=== PATIENT | female | born 1995 | race Caucasian/White ===

== ENCOUNTER 2016-08-27 09:12 | Emergency (ER) | payer SELFPAY ==
[2016-08-27 09:25] VITALS: TEMP 98
--- NOTE | 2016-08-27 09:55 | ED ---
General Adult HPI - General Chief complaint: Recheck/Abnormal Lab/Rx Stated complaint: HTN Time Seen by Provider: 08/27/16 09:37 Source: patient Mode of arrival: ambulatory Limitations: no limitations - History of Present Illness Initial comments: 21-year-old female patient presents to the emergency Department today with complaints of elevated blood pressure. Patient states she checked her blood pressure this morning after he had an episode of chest tightness, felt clammy, and her heart started pounding. Patient had just gotten home from a 12 hour shift. Patient states she does have a history of acid reflux, has not been on medication in a while, and did have some heartburn this morning as well. Patient does admit to having a kick start energy drink at the beginning of her shift; patient states that she does not usually have these drinks. She has been known to have elevated blood pressure in the past as high as 140s over 90s , her physician is monitoring this. Patient states she did have some epigastric discomfort. Patient states it hurts when she presses on it. Patient states she has had some acid reflux. Patient denies any nausea, vomiting, chest pain, dizziness, or weakness. She denies any constipation, diarrhea, dysuria, or frequency urination. Patient states that most of her symptoms have resolved, but she still feels like her heart is pounding. - Related Data Home Medications Medication Instructions Recorded Confirmed Acetaminophen Tab [Tylenol Tab] 500 - 1,000 mg PO Q6HR PRN 06/24/16 08/27/16 Previous Rx's Medication Instructions Recorded Ranitidine HCl [Zantac] 150 mg PO BID #28 tab 08/27/16 Allergies Allergy/AdvReac Type Severity Reaction Status Date / Time cefaclor [From Ceclor] AdvReac Unknown Verified 08/27/16 10:08 Sulfa (Sulfonamide AdvReac Unknown Verified 08/27/16 10:08 Antibiotics) Last menstrual period: 08/27/16 Review of Systems ROS Statement: Those systems with pertinent positive or pertinent negative responses have been documented in the HPI. ROS Other: All systems not noted in ROS Statement are negative. Past Medical History Past Medical History: Asthma Additional Past Medical History / Comment(s): ibs History of Any Multi-Drug Resistant Organisms: None Reported Past Surgical History: No Surgical Hx Reported Additional Past Surgical History / Comment(s): colonoscopy, IBS Past Psychological History: No Psychological Hx Reported Smoking Status: Never smoker Past Alcohol Use History: None Reported Past Drug Use History: None Reported General Exam Limitations: no limitations General appearance: alert, in no apparent distress Head exam: Present: atraumatic, normocephalic Eye exam: Present: normal appearance, PERRL, EOMI ENT exam: Present: normal exam, normal oropharynx, mucous membranes moist Neck exam: Present: normal inspection, full ROM. Absent: lymphadenopathy Respiratory exam: Present: normal lung sounds bilaterally. Absent: respiratory distress, wheezes, rales, rhonchi Cardiovascular Exam: Present: regular rate, normal rhythm, normal heart sounds. Absent: irregular rhythm, systolic murmur, diastolic murmur, rubs, gallop, clicks GI/Abdominal exam: Present: soft, tenderness (Mild epigastric), normal bowel sounds. Absent: distended, guarding, rebound, rigid Neurological exam: Present: alert, oriented X3, CN II-XII intact Psychiatric exam: Present: normal affect Skin exam: Present: warm, dry, intact Course Vital Signs 08/27/16 08/27/16 09:22 09:58 Temperature 98.0 F Pulse Rate 94 84 Respiratory 16 16 Rate Blood Pressure 142/83 152/87 O2 Sat by Pulse 100 100 Oximetry EKG Findings - EKG Comments: EKG Findings:: EKG obtained at 0958 reveals normal sinus rhythm. Ventricular rate 90 bpm, NM interval 132, QRS duration 74, QT 324, QTC 396. Medical Decision Making - Medical Decision Making 21-year-old female patient presented to emergency department with complaints of elevated blood pressure and an episode of chest tightness, felt clammy, and had pounding heart at home. Upon presentation patient was still feeling like her heart was pounding, but her other symptoms have resolved. EKG was within normal limits. Blood sugar was normal at 94. Patient did admit to drinking an energy drink at work last night which she does not normally do. This is felt that patient's symptoms are related to the energy drink and patient will be given a GI cocktail and discharged home to follow up in 1-2 days with her primary care physician. Patient did have some epigastric tenderness heartburn symptoms Patient also instructed to continue to monitor blood pressures and keep a log for her physician in the event that she may need to be placed on blood pressure medication. Patient highly advised to follow-up with primary care physician for regular checkups Patient agrees with this plan. - Lab Data Lab Results 08/27/16 Range/Units 09:58 POC Glucose (mg/dL) 94 (75-99) mg/dL POC Glu Reservationist ID Jerome Evans Disposition Clinical Impression: High blood pressure, GERD (gastroesophageal reflux disease) Disposition: HOME SELF-CARE Condition: Stable Instructions: Hypertension (ED), Gastroesophageal Reflux Disease (ED) Additional Instructions: Avoid caffeinated energy drinks. The log of blood pressures, taken at different times throughout the day, present those to your primary care physician. Follow-up with primary care physician in one to 2 days. Return for any worsening, new, or concerning symptoms. Prescriptions: Ranitidine HCl [Zantac] 150 mg PO BID #28 tab Referrals: Miguel Coy MD [Primary Care Provider] - 1-2 days Time of Disposition: 10:16
[2016-08-27] MEDS ORDERED: MAG HYDROX/AL HYDROX/SIMETH 30 ML, HYOSCYAMINE ELIXIR 10 ML, CIMETIDINE HCL 300 MG, LID... PO STA ×4 (10:11)
[2016-08-27 10:12] LABS: Glucose,Whole Blood 94 mg/dL (75-99)
[2016-08-27 10:44] VITALS: BP 129/68; PULSE 78; RESP 18
== END 2016-08-27 10:44 | disposition home or self-care (01) ==
LOC: EC 09:12
DX: K21.9 Gastro-esophageal reflux disease without esophagitis (principal); R03.0 Elevated blood-pressure reading, without diagnosis of hypertension
CPT/HCPCS: 36415; 93005; 99283

== ENCOUNTER → 2016-09-17 | Outpatient (CLI) | payer MEDICAID ==
[2016-09-17 14:04] LABS: CH 30.5; CHCM 34.9; HCT 41.2 % (34.0-46.0); HDW 2.79; HGB 14.1 gm/dL (11.4-16.0); MCHC 34.2 g/dL (31.0-37.0); MCV 87.7 fL (80.0-100.0); Mean Platelet Volume 7.2; RDW 12.8 % (11.5-15.5); WBC 7.2 k/uL (3.8-10.6)
== END | disposition home or self-care (01) ==
LOC: LABWHC1 12:53
PROVIDERS: ATTEND Family Medicine
DX: D72.829 Elevated white blood cell count, unspecified (principal)
CPT/HCPCS: 36415; 85027

== ENCOUNTER 2016-12-08 18:14 | Emergency (ER) | payer MEDICAID ==
[2016-12-08 18:36] VITALS: TEMP 98.8
--- NOTE | 2016-12-08 19:12 | ED ---
Nausea/Vomiting/Diarrhea HPI - General Chief complaint: Nausea/Vomiting/Diarrhea Stated complaint: Vomiting Time Seen by Provider: 12/08/16 18:54 Source: patient, RN notes reviewed Mode of arrival: wheelchair Limitations: no limitations - History of Present Illness Initial comments: 21-year-old female presents emergency Department chief complaint of nausea vomiting. Patient states she has not felt well over the last couple days. Patient states she has a history of IBS. Patient states that she was on a weaning the work here today when she was vomiting. Patient states she only popsicle today. Patient went of mild mid abdominal pain. Denies fever, chills , chest pain, shortness of breath. Patient has no headache no dizziness no sore throat. Patient states that she was - Related Data Previous Rx's Medication Instructions Recorded Dicyclomine [Bentyl] 20 mg PO TID #30 tablet 12/08/16 Ondansetron Odt [Zofran Odt] 4 mg PO Q8HR PRN #10 tab 12/08/16 Allergies Allergy/AdvReac Type Severity Reaction Status Date / Time egg Allergy Swelling Verified 12/08/16 19:01 cefaclor [From Ceclor] AdvReac Rash/Hives Verified 12/08/16 19:01 Sulfa (Sulfonamide AdvReac Swelling Verified 12/08/16 19:01 Antibiotics) Review of Systems ROS Statement: Those systems with pertinent positive or pertinent negative responses have been documented in the HPI. ROS Other: All systems not noted in ROS Statement are negative. Past Medical History Past Medical History: Asthma Additional Past Medical History / Comment(s): ibs , raynauds History of Any Multi-Drug Resistant Organisms: None Reported Past Surgical History: No Surgical Hx Reported Additional Past Surgical History / Comment(s): colonoscopy, IBS Past Psychological History: No Psychological Hx Reported Smoking Status: Never smoker Past Alcohol Use History: None Reported Past Drug Use History: None Reported General Exam Limitations: no limitations General appearance: alert, in no apparent distress ENT exam: Present: normal oropharynx, mucous membranes moist Neck exam: Present: normal inspection. Absent: tenderness, meningismus, lymphadenopathy Respiratory exam: Present: normal lung sounds bilaterally. Absent: respiratory distress, wheezes, rales, rhonchi, stridor Cardiovascular Exam: Present: normal rhythm, tachycardia, normal heart sounds. Absent: systolic murmur, diastolic murmur, rubs, gallop, clicks GI/Abdominal exam: Present: soft, tenderness (Mild diffuse), normal bowel sounds. Absent: distended, guarding, rebound, rigid Neurological exam: Present: alert Skin exam: Present: warm, dry, intact, normal color. Absent: rash Course Vital Signs 12/08/16 18:35 Temperature 98.8 F Pulse Rate 124 H Respiratory 20 Rate Blood Pressure 129/78 O2 Sat by Pulse 98 Oximetry - Reevaluation(s) Reevaluation #1: 12/08/16 21:08 Patient was updated on lab results which show no acute abnormality. Patient states her nausea has improved she has mildly abdominal discomfort. Patient does not have a urinalysis that time though she is asked him to be discharged. Patient has no urinary symptoms Medical Decision Making - Medical Decision Making 21-year-old female presented for nausea vomiting. Patient's nausea is resolved labwork with normals. Patient wants to be discharged prior to urinalysis. Patient has no urinary symptoms oh. Patient is having a difficult with her IBS. Return parameters discussed. - Lab Data Result diagrams: 12/08/16 19:27 12/08/16 19:27 Lab Results 12/08/16 12/08/16 Range/Units 19:27 19:27 WBC 10.0 (3.8-10.6) k/uL RBC 4.78 (3.80-5.40) m/uL Hgb 14.7 (11.4-16.0) gm/dL Hct 41.4 (34.0-46.0) % MCV 86.6 (80.0-100.0) fL MCH 30.8 (25.0-35.0) pg MCHC 35.6 (31.0-37.0) g/dL RDW 12.5 (11.5-15.5) % Plt Count 322 (150-450) k/uL Neutrophils % 81 % Lymphocytes % 12 % Monocytes % 4 % Eosinophils % 0 % Basophils % 0 % Neutrophils # 8.1 H (1.3-7.7) k/uL Lymphocytes # 1.2 (1.0-4.8) k/uL Monocytes # 0.4 (0-1.0) k/uL Eosinophils # 0.0 (0-0.7) k/uL Basophils # 0.0 (0-0.2) k/uL Sodium 142 (137-145) mmol/L Potassium 3.9 (3.5-5.1) mmol/L Chloride 102 (98-107) mmol/L Carbon Dioxide 26 (22-30) mmol/L Anion Gap 14 mmol/L BUN 11 (7-17) mg/dL Creatinine 0.72 (0.52-1.04) mg/dL Est GFR (MDRD) Af Amer >60 (>60 ml/min/1.73 sqM) Est GFR (MDRD) Non-Af >60 (>60 ml/min/1.73 sqM) Glucose 96 (74-99) mg/dL Calcium 10.0 (8.4-10.2) mg/dL Total Bilirubin 1.1 (0.2-1.3) mg/dL AST 19 (14-36) U/L ALT 26 (9-52) U/L Alkaline Phosphatase 68 (38-126) U/L Total Protein 8.5 H (6.3-8.2) g/dL Albumin 5.1 H (3.5-5.0) g/dL Amylase 38 (30-110) U/L Lipase 38 (23-300) U/L Disposition Clinical Impression: Nausea & vomiting, IBS (irritable bowel syndrome) Disposition: HOME SELF-CARE Condition: Stable Instructions: Acute Nausea and Vomiting (ED) Additional Instructions: Please return to the Emergency Department if symptoms worsen or any other concerns. Prescriptions: Dicyclomine [Bentyl] 20 mg PO TID #30 tablet Ondansetron Odt [Zofran Odt] 4 mg PO Q8HR PRN #10 tab PRN Reason: Nausea Referrals: Miguel Coy MD [Primary Care Provider] - 1-2 days Time of Disposition: 21:10
[2016-12-08] MEDS ORDERED: SODIUM CHLORIDE 0.9% 2,000 ML IV STA (19:58)
[2016-12-08] MEDS ORDERED: ONDANSETRON 4 MG/2 ML VIAL IVP STA (19:58)
[2016-12-08 20:29] LABS: Basophils % (A) 0 %; CH 31.8; CHCM 36.8; Eosinophils % (A) 0 %; HCT 41.4 % (34.0-46.0); HDW 2.73; HGB 14.7 gm/dL (11.4-16.0); Luc # (Auto) 0.14; Luc % (Auto) 1; Lymphocytes # (A) 1.2 k/uL (1.0-4.8); Lymphocytes % (A) 12 %; MCH 30.8 pg (25.0-35.0); MCHC 35.6 g/dL (31.0-37.0); MCV 86.6 fL (80.0-100.0); Mean Platelet Volume 6.3; Monocytes # (A) 0.4 k/uL (0-1.0); Monocytes % (A) 4 %; Neutrophils # (A) 8.1 k/uL (1.3-7.7); Neutrophils % (A) 81 %; RBC 4.78 m/uL (3.80-5.40); RDW 12.5 % (11.5-15.5); WBC (Perox) 10.11
[2016-12-08 20:33] LABS: ALT 26 U/L (9-52); AST 19 U/L (14-36); Alkaline Phosphatase 68 U/L (38-126); Amylase 38 U/L (30-110); Anion Gap 14 mmol/L; Blood Urea Nitrogen 11 mg/dL (7-17); Carbon Dioxide 26 mmol/L (22-30); Chloride 102 mmol/L (98-107); Glucose 96 mg/dL (74-99); Non-African American GFR(MDRD) >60 (>60 ml/min/1.73 sqM); Potassium 3.9 mmol/L (3.5-5.1); Sodium 142 mmol/L (137-145); Total Bilirubin 1.1 mg/dL (0.2-1.3); Total Protein 8.5 g/dL (6.3-8.2)
[2016-12-08] MEDS ORDERED: KETOROLAC 30 MG/ML 1 ML VIAL IVP STA (21:08)
[2016-12-08] MEDS ORDERED: ONDANSETRON 4 MG ODT STARTER PACK 2 TAB BTL PO STA (21:08)
[2016-12-08 21:16] VITALS: BP 123/63; PULSE 104; RESP 18
== END 2016-12-08 21:34 | disposition home or self-care (01) ==
LOC: EC 18:14
DX: K58.9 Irritable bowel syndrome, unspecified (principal); R11.2 Nausea with vomiting, unspecified; R10.84 Generalized abdominal pain; Z88.1 Allergy status to other antibiotic agents; Z88.2 Allergy status to sulfonamides; Z91.012 Allergy to eggs
CPT/HCPCS: 36415; 80053; 82150; 83690; 85025; 99284; 96374; 96361; J2405; S0119

== ENCOUNTER 2018-03-25 15:44 | Emergency (ER) | payer MEDICAID ==
[2018-03-25] MEDS ORDERED: SODIUM CHLORIDE 0.9% 1,000 ML IV ONE (15:51)
[2018-03-25] MEDS ORDERED: ACETAMINOPHEN TAB 325 MG TAB PO STA (16:10)
--- NOTE | 2018-03-25 16:19 | ED ---
Female Urogenital HPI - General Chief complaint: Vaginal Bleeding Stated complaint: excessive vaginal bleeding Time Seen by Provider: 03/25/18 15:49 Source: patient Mode of arrival: ambulatory Limitations: no limitations - History of Present Illness Initial comments: 22 female who denies past medical history presents today for chief complaint of vaginal bleeding 1 day. Patient states that she has irregular periods normally, including multiple periods a month. She states this has been going on since she began menstruation. Pt states that she has a family history of endometriosis, but no personal diagnosis. Patient does not have an [employer] and has never been evaluated for her abnormal menstruation. No hx of pap smear, STD. Patient states that she began her period yesterday this was 5 days earlier than expected, the bleeding began as light with some small clots however today the bleeding increased seeming very heavy. Pt states she has had periods this heavy however she passed a very large clot on her way to work and was concerned. Pt bled through a pad within an hour prior to presentation this was the heaviest flow. Pt denies risk of stating she is not sexually active. Pt does admit to lower pelvic cramping that is identical in characteristic to her usual periods however the intensity is increased. Pt does admit to mild low back pain, she states that this occurs with menstruation. Pt denies urgency, frequency or dysuria, fever, chills, abnormal vaginal discharge or odors. Remainder of ROS (-). Last Menstrual Period: 03/24/18 - Related Data Home Medications Medication Instructions Recorded Confirmed No Known Home Medications 03/25/18 03/25/18 Allergies Allergy/AdvReac Type Severity Reaction Status Date / Time egg Allergy Swelling Verified 03/25/18 15:57 cefaclor [From Ceclor] AdvReac Rash/Hives Verified 03/25/18 15:57 Sulfa (Sulfonamide AdvReac Swelling Verified 03/25/18 15:57 Antibiotics) Review of Systems ROS Statement: Those systems with pertinent positive or pertinent negative responses have been documented in the HPI. ROS Other: All systems not noted in ROS Statement are negative. Past Medical History Past Medical History: Asthma Additional Past Medical History / Comment(s): ibs , raynauds History of Any Multi-Drug Resistant Organisms: None Reported Past Surgical History: No Surgical Hx Reported Additional Past Surgical History / Comment(s): colonoscopy, IBS Past Psychological History: No Psychological Hx Reported Smoking Status: Never smoker Past Alcohol Use History: None Reported Past Drug Use History: None Reported General Exam - General Exam Comments Initial Comments: General: The patient is awake and alert, in no distress, and does not appear acutely ill. Eye: Pupils are equal, round and reactive to light, extra-ocular movements are intact. No nystagmus. There is normal conjunctiva bilaterally. No signs of icterus. Ears, nose, mouth and throat: There are moist mucous membranes and no oral lesions. Neck: The neck is supple, there is no tenderness or JVD. Cardiovascular: There is a regular rate and rhythm. No murmur, rub or gallop is appreciated. Respiratory: Lungs are clear to auscultation, respirations are non-labored, breath sounds are equal. No wheezes, stridor, rales, or rhonchi. Gastrointestinal: Soft, non-distended, abdomen without masses or organomegaly noted. Pt is tender in the lower pelvic region equally b/l. No RLQ, LLQ, RUQ, Epigastric or LUQ pain to deep palpation. (-) Rovsing, Estelle. There is no rebound or guarding present. No CVA tenderness. Bowel sounds are unremarkable. Musculoskeletal: Normal ROM, no tenderness. Strength 5/5. Sensation intact. Pulses equal bilaterally 2+. Neurological: A&O x 3. CN II-XII intact, There are no obvious motor or sensory deficits. Coordination appears grossly intact. Speech is normal. Skin: Skin is warm and dry and no rashes or lesions are noted. Psychiatric: Cooperative, appropriate mood & affect, normal judgment. Limitations: no limitations External exam: Present: normal external exam. Absent: erythema, lesions, lacerations, ecchymosis Speculum exam: Present: vaginal bleeding (mild amount of blood in vaginal vault , no evidence of hemorrhage or laceration) By manual exam: Present: normal by manual exam. Absent: cervical motion tenderness, adnexal tenderness, adnexal mass, uterine enlargement Expanded Female exam: Absent: vaginal laceration, tissue present in vagina, herpetic lesions, vulvar erythema, vulvar tenderness, foreign body External exam: Present: normal Speculum exam: Present: cervical OS closed. Absent: vaginal discharge Course Vital Signs 03/25/18 03/25/18 15:45 18:15 Temperature 98.0 F 97.8 F Pulse Rate 114 H 95 Respiratory 20 16 Rate Blood Pressure 147/89 128/80 O2 Sat by Pulse 100 98 Oximetry Medical Decision Making - Medical Decision Making Labs unremarkable, HgB stable. No signs of pallor on exam. Pt U/S revealed some free fluid in the cul-de-sac this is most likely physiologic, U/S negative for torsion or ectopic . No chandelier sign, signs of vaginal discharge or hx concerning for PID. Pelvic unremarkable and performed with nurse in room. No signs of heavy vaginal bleeding, discharge. Hcg (-). Pt appears comfortable- no signs of peritoneal irritation or acute abdomen. Pt stated that tylenol helped alleviate the pain. She stated it was almost completely gone upon reevaluation. At this time I feel pt most likely has dysmenorrhea vs endometriosis given family history and presence of fluid in posterior cul de sace. Case discussed with Dr. Vega at this time we feel pt is stable for d/c with OBGYN f/u for further evaluation and treatment. Pt agrees with plan, verbalized understanding. D/c in stable condition. - Lab Data Result diagrams: 03/25/18 17:05 03/25/18 17:05 Lab Results 03/25/18 03/25/18 03/25/18 Range/Units 17:05 17:05 17:05 WBC 11.1 H (3.8-10.6) k/uL RBC 4.58 (3.80-5.40) m/uL Hgb 13.7 (11.4-16.0) gm/dL Hct 40.3 (34.0-46.0) % MCV 88.1 (80.0-100.0) fL MCH 29.9 (25.0-35.0) pg MCHC 34.0 (31.0-37.0) g/dL RDW 13.0 (11.5-15.5) % Plt Count 248 (150-450) k/uL Neutrophils % 76 % Lymphocytes % 17 % Monocytes % 5 % Eosinophils % 1 % Basophils % 0 % Neutrophils # 8.4 H (1.3-7.7) k/uL Lymphocytes # 1.9 (1.0-4.8) k/uL Monocytes # 0.5 (0-1.0) k/uL Eosinophils # 0.1 (0-0.7) k/uL Basophils # 0.1 (0-0.2) k/uL PT (9.0-12.0) sec INR (<1.2) APTT (22.0-30.0) sec Sodium (137-145) mmol/L Potassium (3.5-5.1) mmol/L Chloride (98-107) mmol/L Carbon Dioxide (22-30) mmol/L Anion Gap mmol/L BUN (7-17) mg/dL Creatinine (0.52-1.04) mg/dL Est GFR (CKD-EPI)AfAm (>60 ml/min/1.73 sqM) Est GFR (CKD-EPI)NonAf (>60 ml/min/1.73 sqM) Glucose (74-99) mg/dL Calcium (8.4-10.2) mg/dL Total Bilirubin (0.2-1.3) mg/dL AST (14-36) U/L ALT (9-52) U/L Alkaline Phosphatase (38-126) U/L Total Protein (6.3-8.2) g/dL Albumin (3.5-5.0) g/dL Urine Color Red Urine Appearance Bloody H (Clear) Urine RBC >182 H (0-5) /hpf Urine WBC >182 H (0-5) /hpf Ur Squamous Epith Cells 20 H (0-4) /hpf Urine HCG, Qual Not Detected (Not Detectd) 03/25/18 03/25/18 Range/Units 17:05 17:05 WBC (3.8-10.6) k/uL RBC (3.80-5.40) m/uL Hgb (11.4-16.0) gm/dL Hct (34.0-46.0) % MCV (80.0-100.0) fL MCH (25.0-35.0) pg MCHC (31.0-37.0) g/dL RDW (11.5-15.5) % Plt Count (150-450) k/uL Neutrophils % % Lymphocytes % % Monocytes % % Eosinophils % % Basophils % % Neutrophils # (1.3-7.7) k/uL Lymphocytes # (1.0-4.8) k/uL Monocytes # (0-1.0) k/uL Eosinophils # (0-0.7) k/uL Basophils # (0-0.2) k/uL PT 10.5 (9.0-12.0) sec INR 1.1 (<1.2) APTT 25.7 (22.0-30.0) sec Sodium 139 (137-145) mmol/L Potassium 4.1 (3.5-5.1) mmol/L Chloride 104 (98-107) mmol/L Carbon Dioxide 25 (22-30) mmol/L Anion Gap 10 mmol/L BUN 5 L (7-17) mg/dL Creatinine 0.68 (0.52-1.04) mg/dL Est GFR (CKD-EPI)AfAm >90 (>60 ml/min/1.73 sqM) Est GFR (CKD-EPI)NonAf >90 (>60 ml/min/1.73 sqM) Glucose 89 (74-99) mg/dL Calcium 9.2 (8.4-10.2) mg/dL Total Bilirubin 0.4 (0.2-1.3) mg/dL AST 15 (14-36) U/L ALT 18 (9-52) U/L Alkaline Phosphatase 50 (38-126) U/L Total Protein 7.1 (6.3-8.2) g/dL Albumin 4.1 (3.5-5.0) g/dL Urine Color Urine Appearance (Clear) Urine RBC (0-5) /hpf Urine WBC (0-5) /hpf Ur Squamous Epith Cells (0-4) /hpf Urine HCG, Qual (Not Detectd) Disposition Clinical Impression: Vaginal bleeding, Dysmenorrhea Disposition: HOME SELF-CARE Condition: Good Instructions: Dysmenorrhea (ED) Additional Instructions: Please use medication as discussed. Please follow-up with OBGYN in the next 1- 2 weeks. Please return to emergency room if the symptoms increase or worsen or for any other concerns. Is patient prescribed a controlled substance at d/c from ED?: No Referrals: Miguel Coy MD [Primary Care Provider] - 1-2 days Tato Yates MD [STAFF PHYSICIAN] - 1-2 days Time of Disposition: 18:01
--- NOTE | 2018-03-25 17:06 | US ---
EXAMINATION TYPE: US transvaginal DATE OF EXAM: 03/25/2018 COMPARISON: US 2008 CLINICAL HISTORY: vaginal bleeding/pain. Pt states cramping, heavy vaginal bleeding with clots that s tarted yesterday TECHNIQUE: Transvaginal (TV). Date of LMP: 03/24/2018 EXAM MEASUREMENTS: Uterus: 7.6 x 3.4 x 4.2 cm Endometrial Stripe: 0.7 cm Right Ovary: 4.1 x 2.1 x 1.9 cm Left Ovary: 3.5 x 3.0 x 2.6 cm 1. Uterus: Anteverted Appeared wnl 2. Endometrium: Cystic area within endo= 0.4 x 0.3 x 0.3 cm 3. Right Ovary: wnl, follicles 4. Left Ovary: wnl, follicles Spectral, color and waveform doppler imaging shows good arterial and venous flow within the ovaries ; there is no evidence for ovarian torsion. 5. Bilateral Adnexa: wnl 6. Posterior cul-de-sac: Small amount of free fluid IMPRESSION: There is tiny fluid collection in the endometrial cavity at the fundus. Minimal free flui d in in the cul-de-sac could be physiologic. No adnexal mass.
[2018-03-25 17:18] LABS: Basophils # (A) 0.1 k/uL (0-0.2); Basophils % (A) 0 %; Eosinophils # (A) 0.1 k/uL (0-0.7); Eosinophils % (A) 1 %; HCT 40.3 % (34.0-46.0); HGB 13.7 gm/dL (11.4-16.0); Lymphocytes # (A) 1.9 k/uL (1.0-4.8); Lymphocytes % (A) 17 %; MCH 29.9 pg (25.0-35.0); MCV 88.1 fL (80.0-100.0); Mean Platelet Volume 6.5; Monocytes # (A) 0.5 k/uL (0-1.0); Monocytes % (A) 5 %; Neutrophils # (A) 8.4 k/uL (1.3-7.7); Neutrophils % (A) 76 %; Platelet Count 248 k/uL (150-450); RBC 4.58 m/uL (3.80-5.40); WBC 11.1 k/uL (3.8-10.6)
[2018-03-25 17:25] LABS: Color,Urine Red; RBC,Urine >182 /hpf (0-5); Squamous Epithelial Cell,Urine 20 /hpf (0-4); WBC,Urine >182 /hpf (0-5)
[2018-03-25 17:26] LABS: Appearance,Urine Bloody (Clear)
[2018-03-25 17:27] LABS: INR 1.1 (<1.2); Partial Thromboplastin Time 25.7 sec (22.0-30.0); Prothrombin Time 10.5 sec (9.0-12.0)
[2018-03-25 17:39] LABS: ALT 18 U/L (9-52); AST 15 U/L (14-36); Albumin 4.1 g/dL (3.5-5.0); Alkaline Phosphatase 50 U/L (38-126); Anion Gap 10 mmol/L; Blood Urea Nitrogen 5 mg/dL (7-17); Calcium 9.2 mg/dL (8.4-10.2); Carbon Dioxide 25 mmol/L (22-30); Chloride 104 mmol/L (98-107); Glucose 89 mg/dL (74-99); Potassium 4.1 mmol/L (3.5-5.1); Sodium 139 mmol/L (137-145); Total Bilirubin 0.4 mg/dL (0.2-1.3); Total Protein 7.1 g/dL (6.3-8.2)
[2018-03-25 18:16] VITALS: BP 128/80; PULSE 95; RESP 16; TEMP 97.8
== END 2018-03-25 18:17 | disposition home or self-care (01) ==
LOC: EC 15:44
DX: N94.6 Dysmenorrhea, unspecified (principal); Z91.012 Allergy to eggs; Z88.1 Allergy status to other antibiotic agents; Z88.2 Allergy status to sulfonamides
CPT/HCPCS: 36415; 76830; 80053; 81001; 81025; 85025; 85610; 85730; 93975; 96360; 99284

== ENCOUNTER 2018-08-23 14:11 | Inpatient (IN) | payer MEDICAID ==
[2018-08-23] MEDS ORDERED: ACETAMINOPHEN TAB 325 MG TAB PO STA (15:29)
[2018-08-23] MEDS ORDERED: KETOROLAC 30 MG/ML 1 ML VIAL IVP STA (15:45)
--- NOTE | 2018-08-23 15:47 | ED ---
General Adult HPI - General Chief complaint: Abdominal Pain Stated complaint: Lower left abd pain Source: patient Mode of arrival: ambulatory Limitations: no limitations - History of Present Illness Initial comments: 23-year-old female with past medical history of IBS presenting today for chief complaint of left-sided back and abdominal pain, hematuria, fever. Patient states the past week she has had hematuria, left-sided pain with fever. She states she's been evaluated twice in various emergency departments within the past week with the last being [facility] yesterday. She states she had negative urine cultures as well as a negative urine hCG. She states her T-max was 100.4 Fahrenheit. She states a week ago when she was evaluated at [facility] and started on ciprofloxacin 500 BID, however when she was evaluated by her primary care for recommended f/u pt antibiotic regime was changed to keflex TID. Pt states she has been compliant for the past 5 days. Pt presents today to the emergency department for evaluation when symptoms persisted regardless of antibiotic regime. Remaining ROS (-), Patient denies any recent shortness of breath, chest pain, nausea or vomiting, numbness or tingling, dysuria or hematuria, constipation or diarrhea, headaches or visual changes, or any other complaints. - Related Data Home Medications Medication Instructions Recorded Confirmed Ketty (Unknown) 1 tab PO DAILY 08/23/18 08/23/18 Allergies Allergy/AdvReac Type Severity Reaction Status Date / Time egg Allergy Swelling Verified 08/23/18 20:44 blueberry AdvReac Itching Verified 08/23/18 20:44 cefaclor [From Ceclor] AdvReac Rash/Hives Verified 08/23/18 20:44 onion AdvReac Rash/Hives Verified 08/23/18 20:44 Sulfa (Sulfonamide AdvReac Swelling Verified 08/23/18 20:44 Antibiotics) Review of Systems ROS Statement: Those systems with pertinent positive or pertinent negative responses have been documented in the HPI. ROS Other: All systems not noted in ROS Statement are negative. Past Medical History Past Medical History: Asthma Additional Past Medical History / Comment(s): ibs , raynauds History of Any Multi-Drug Resistant Organisms: None Reported Past Surgical History: No Surgical Hx Reported Additional Past Surgical History / Comment(s): colonoscopy, IBS Past Psychological History: No Psychological Hx Reported Smoking Status: Never smoker Past Alcohol Use History: Rare Past Drug Use History: None Reported General Exam - General Exam Comments Initial Comments: General: The patient is awake and alert, in no distress. Eye: Pupils are equal, round and reactive to light, extra-ocular movements are intact. No nystagmus. There is normal conjunctiva bilaterally. No signs of icterus. Ears, nose, mouth and throat: There are moist mucous membranes and no oral lesions. Neck: The neck is supple, there is no tenderness or JVD. Cardiovascular: There is a regular rate and rhythm. No murmur, rub or gallop is appreciated. Respiratory: Lungs are clear to auscultation, respirations are non-labored, breath sounds are equal. No wheezes, stridor, rales, or rhonchi. Gastrointestinal: Soft, non-distended, non-tender abdomen without masses or organomegaly noted. There is no rebound or guarding present. No CVA tenderness. Bowel sounds are unremarkable. Musculoskeletal: Normal ROM, no tenderness. Strength 5/5. Sensation intact. Radial pulses equal bilaterally 2+. Neurological: A&O x 3. CN II-XII intact, There are no obvious motor or sensory deficits. Coordination appears grossly intact. Speech is normal. Skin: Skin is warm and dry and no rashes or lesions are noted. Psychiatric: Cooperative, appropriate mood & affect, normal judgment. Limitations: no limitations Course Vital Signs 08/23/18 08/23/18 08/23/18 14:55 18:05 20:23 Temperature 98.4 F 99.3 F 98.1 F Pulse Rate 122 H 100 93 Respiratory 18 18 18 Rate Blood Pressure 145/91 133/78 124/87 O2 Sat by Pulse 100 100 99 Oximetry Medical Decision Making - Medical Decision Making 23-year-old female presents today for chief complaint of fever left flank pain. Patient has been on 2 regimens of outpatient antibiotics, patient states her fever persists. Patient states she has not had an imaging studies, prior to today's visit. CT of the abdomen and pelvis revealed renal calculi. Patient's urinalysis revealed 32 WBC. Urology consulted after discussing the case with my attending provider Dr. Thomas, Dr. Hodgson recommended inpatient IV therapy. Pt given 1,00mg IVPB rocephin. Patient does not appear clinically toxic or septic. Patient was given IV fluids. Lactic acid within normal limits, no leukocytosis. Patient agreeable to admission denies questions at this time. - Lab Data Result diagrams: 08/23/18 16:01 08/23/18 16:01 Lab Results 08/23/18 08/23/18 08/23/18 Range/Units 16:01 16: 16:01 WBC 9.4 (3.8-10.6) k/uL RBC 4.63 (3.80-5.40) m/uL Hgb 13.7 (11.4-16.0) gm/dL Hct 39.2 (34.0-46.0) % MCV 84.6 (80.0-100.0) fL MCH 29.5 (25.0-35.0) pg MCHC 34.9 (31.0-37.0) g/dL RDW 12.8 (11.5-15.5) % Plt Count 320 (150-450) k/uL Neutrophils % 68 % Lymphocytes % 24 % Monocytes % 5 % Eosinophils % 1 % Basophils % 1 % Neutrophils # 6.4 (1.3-7.7) k/uL Lymphocytes # 2.3 (1.0-4.8) k/uL Monocytes # 0.5 (0-1.0) k/uL Eosinophils # 0.1 (0-0.7) k/uL Basophils # 0.0 (0-0.2) k/uL Sodium 139 (137-145) mmol/L Potassium 3.9 (3.5-5.1) mmol/L Chloride 106 (98-107) mmol/L Carbon Dioxide 25 (22-30) mmol/L Anion Gap 8 mmol/L BUN 11 (7-17) mg/dL Creatinine 0.66 (0.52-1.04) mg/dL Est GFR (CKD-EPI)AfAm >90 (>60 ml/min/1.73 sqM) Est GFR (CKD-EPI)NonAf >90 (>60 ml/min/1.73 sqM) Glucose 104 H (74-99) mg/dL Plasma Lactic Acid Floyd 1.0 (0.7-2.0) mmol/L Calcium 9.4 (8.4-10.2) mg/dL Total Bilirubin 0.4 (0.2-1.3) mg/dL AST 18 (14-36) U/L ALT 18 (9-52) U/L Alkaline Phosphatase 51 (38-126) U/L Total Protein 7.8 (6.3-8.2) g/dL Albumin 4.6 (3.5-5.0) g/dL Urine Color Urine Appearance (Clear) Urine pH (5.0-8.0) Ur Specific [place] (1.001-1.035) Urine Protein (Negative) Urine Glucose (UA) (Negative) Urine Ketones (Negative) Urine Blood (Negative) Urine Nitrite (Negative) Urine Bilirubin (Negative) Urine Urobilinogen (<2.0) mg/dL Ur Leukocyte Esterase (Negative) Urine RBC (0-5) /hpf Urine WBC (0-5) /hpf Ur Squamous Epith Cells (0-4) /hpf Urine Bacteria (None) /hpf Urine Mucus (None) /hpf Urine HCG, Qual (Not Detectd) Influenza Type A RNA (Not Detectd) Influenza Type B (PCR) (Not Detectd) 08/23/18 08/23/18 08/23/18 Range/Units 16:01 16:01 17:04 WBC (3.8-10.6) k/uL RBC (3.80-5.40) m/uL Hgb (11.4-16.0) gm/dL Hct (34.0-46.0) % MCV (80.0-100.0) fL MCH (25.0-35.0) pg MCHC (31.0-37.0) g/dL RDW (11.5-15.5) % Plt Count (150-450) k/uL Neutrophils % % Lymphocytes % % Monocytes % % Eosinophils % % Basophils % % Neutrophils # (1.3-7.7) k/uL Lymphocytes # (1.0-4.8) k/uL Monocytes # (0-1.0) k/uL Eosinophils # (0-0.7) k/uL Basophils # (0-0.2) k/uL Sodium (137-145) mmol/L Potassium (3.5-5.1) mmol/L Chloride (98-107) mmol/L Carbon Dioxide (22-30) mmol/L Anion Gap mmol/L BUN (7-17) mg/dL Creatinine (0.52-1.04) mg/dL Est GFR (CKD-EPI)AfAm (>60 ml/min/1.73 sqM) Est GFR (CKD-EPI)NonAf (>60 ml/min/1.73 sqM) Glucose (74-99) mg/dL Plasma Lactic Acid Floyd (0.7-2.0) mmol/L Calcium (8.4-10.2) mg/dL Total Bilirubin (0.2-1.3) mg/dL AST (14-36) U/L ALT (9-52) U/L Alkaline Phosphatase (38-126) U/L Total Protein (6.3-8.2) g/dL Albumin (3.5-5.0) g/dL Urine Color Yellow Urine Appearance Cloudy H (Clear) Urine pH 6.0 (5.0-8.0) Ur Specific [place] 1.014 (1.001-1.035) Urine Protein Trace H (Negative) Urine Glucose (UA) Negative (Negative) Urine Ketones Negative (Negative) Urine Blood Large H (Negative) Urine Nitrite Negative (Negative) Urine Bilirubin Negative (Negative) Urine Urobilinogen <2.0 (<2.0) mg/dL Ur Leukocyte Esterase Moderate H (Negative) Urine RBC 117 H (0-5) /hpf Urine WBC 31 H (0-5) /hpf Ur Squamous Epith Cells 16 H (0-4) /hpf Urine Bacteria Occasional H (None) /hpf Urine Mucus Many H (None) /hpf Urine HCG, Qual Not Detected (Not Detectd) Influenza Type A RNA Not Detected (Not Detectd) Influenza Type B (PCR) Not Detected (Not Detectd) Disposition Clinical Impression: Kidney stones, UTI (urinary tract infection), Fever Disposition: ADMITTED IP TO THIS HOSP Condition: Stable Is patient prescribed a controlled substance at d/c from ED?: No Time of Disposition: 19:04 Decision to Admit Reason: Admit from EC Decision Date: 08/23/18 Decision Time: 19:04
[2018-08-23 16:24] LABS: Basophils % (A) 1 %; Eosinophils # (A) 0.1 k/uL (0-0.7); Eosinophils % (A) 1 %; HCT 39.2 % (34.0-46.0); HGB 13.7 gm/dL (11.4-16.0); Lymphocytes # (A) 2.3 k/uL (1.0-4.8); Lymphocytes % (A) 24 %; MCH 29.5 pg (25.0-35.0); MCHC 34.9 g/dL (31.0-37.0); MCV 84.6 fL (80.0-100.0); Mean Platelet Volume 6.3; Monocytes # (A) 0.5 k/uL (0-1.0); Monocytes % (A) 5 %; Neutrophils # (A) 6.4 k/uL (1.3-7.7); Neutrophils % (A) 68 %; Platelet Count 320 k/uL (150-450); RBC 4.63 m/uL (3.80-5.40); RDW 12.8 % (11.5-15.5); WBC 9.4 k/uL (3.8-10.6)
[2018-08-23 16:27] LABS: ALT 18 U/L (9-52); AST 18 U/L (14-36); Albumin 4.6 g/dL (3.5-5.0); Alkaline Phosphatase 51 U/L (38-126); Anion Gap 8 mmol/L; Blood Urea Nitrogen 11 mg/dL (7-17); Calcium 9.4 mg/dL (8.4-10.2); Carbon Dioxide 25 mmol/L (22-30); Chloride 106 mmol/L (98-107); Glucose 104 mg/dL (74-99); Potassium 3.9 mmol/L (3.5-5.1); Sodium 139 mmol/L (137-145); Total Bilirubin 0.4 mg/dL (0.2-1.3); Total Protein 7.8 g/dL (6.3-8.2)
[2018-08-23 16:55] LABS: Appearance,Urine Cloudy (Clear); Bacteria,Urine Occasional /hpf; Bilirubin,Urine Negative (Negative); Blood,Urine Large (Negative); Color,Urine Yellow; Glucose,Urine (UA) Negative (Negative); Ketones,Urine Negative (Negative); Leukocyte Esterase,Urine Moderate (Negative); Mucus,Urine Many /hpf; Nitrite,Urine Negative (Negative); Protein,Urine Trace (Negative); RBC,Urine 117 /hpf (0-5); Specific Gravity,Urine 1.014 (1.001-1.035); Squamous Epithelial Cell,Urine 16 /hpf (0-4); Urobilinogen,Urine <2.0 mg/dL (<2.0); WBC,Urine 31 /hpf (0-5)
--- NOTE | 2018-08-23 17:17 | CT ---
EXAMINATION TYPE: CT abdomen pelvis w con DATE OF EXAM: 08/23/2018 COMPARISON: None HISTORY: left flank pain, hematuria, fever CT DLP: 381.7 mGycm Automated exposure control for dose reduction was used. TECHNIQUE: Helical acquisition of images was performed from the lung bases through the pelvis. CONTRAST: Performed without Oral Contrast and with IV Contrast, patient injected with 100 mL of Isovue 300. FINDINGS: Lung bases are clear. There is no pleural effusion. Heart size is normal. There is no pericardial eff usion. Liver spleen pancreas gallbladder appear normal. Bile ducts are not dilated. There is no adren al mass. There are multiple bilateral renal calculi that measure up to 5 mm. There is mild enlargemen t of the left renal pelvis. There is a calcification that measures 5 mm in the posterior urinary bladder on the left side that co uld be distal ureteral stone or stone already and the urinary bladder. Bladder distends smoothly. Uterus is tilted to the right side. There is no free fluid in the pelvis. I see no pelvic mass. There is no ascites. There is no evidence of free air. There is no mesenteric e eloy. Appendix appears to be present posteriorly adjacent to the sacrum and is unremarkable. I see no bony destructive process. IMPRESSION: MULTIPLE SMALL RENAL CALCULI. SMALL CALCULUS IN THE URINARY BLADDER OR IN DISTAL LEFT URETER AT THE U RETEROVESICAL JUNCTION WITH MILD LEFT-SIDED HYDRONEPHROSIS.
[2018-08-23] MEDS ORDERED: NALOXONE 0.4 MG/ML 1 ML VIAL IV PRN (19:05)
[2018-08-23] MEDS ORDERED: ONDANSETRON 4 MG/2 ML VIAL IVP PRN (19:05)
[2018-08-23] MEDS ORDERED: IBUPROFEN 400 MG TAB PO PRN (19:05)
[2018-08-23] MEDS: SODIUM CHLORIDE 0.9% 1,000 ML IV SCH (19:47)
[2018-08-23] MEDS: KETOROLAC 30 MG/ML 1 ML VIAL IVP PRN (20:55)
[2018-08-23 23:55] VITALS: BMI 18.8
[2018-08-24] MEDS: ACETAMINOPHEN TAB 325 MG TAB PO PRN ×2 (01:08→09:17)
[2018-08-24] MEDS: KETOROLAC 30 MG/ML 1 ML VIAL IVP PRN ×2 (05:39→20:41)
--- NOTE | 2018-08-24 07:06 | P.GSCN ---
History of Present Illness Consult date: 08/24/18 History of present illness: This is a 23-year-old female who about 36 hours ago developed severe left flank plain he presented emergency room. She has actually had problems over the last week. She had symptoms of a urine infection and was treated with antibiotics. She was seen by Dr. casanova switched her antibiotics. It became evident that she had a stone when she was in the emergency room yesterday. Stone is 5 mm at the left ureteral vesicle junction. She states that she's had intermittent fevers. Her white count is normal. She has not had a fever in the hospital. She has been on antibiotics. This is her first stone. There is a family history of stones. She has stones up in her kidney also that are small. She is still in pain. Review of Systems - Gastrointestinal Reports diarrhea, Reports excessive gas - Genitourinary Genitourinary: Reports as per HPI Past Medical History Past Medical History: Asthma Additional Past Medical History / Comment(s): ibs , raynauds History of Any Multi-Drug Resistant Organisms: None Reported Past Surgical History: No Surgical Hx Reported Additional Past Surgical History / Comment(s): colonoscopy, IBS Past Psychological History: No Psychological Hx Reported Smoking Status: Never smoker Past Alcohol Use History: Rare Past Drug Use History: None Reported Medications and Allergies Home Medications Medication Instructions Recorded Confirmed Type Ketty (Unknown) 1 tab PO DAILY 08/23/18 08/23/18 History Allergies Allergy/AdvReac Type Severity Reaction Status Date / Time egg Allergy Swelling Verified 08/23/18 20:44 blueberry AdvReac Itching Verified 08/23/18 20:44 cefaclor [From Ceclor] AdvReac Rash/Hives Verified 08/23/18 20:44 onion AdvReac Rash/Hives Verified 08/23/18 20:44 Sulfa (Sulfonamide AdvReac Swelling Verified 08/23/18 20:44 Antibiotics) Surgical - Exam Vital Signs Temp Pulse Resp BP Pulse Ox 98.4 F 122 H 18 145/91 100 08/23/18 14:55 08/23/18 14:55 08/23/18 14:55 08/23/18 14:55 08/23/18 14:55 - General well developed, well nourished, moderate pain - Eyes PERRL - ENT no hearing loss - Neck trachea midline - Respiratory normal respiratory effort - Cardiovascular Rhythm: regular - Abdomen Abdomen: soft, non tender - Integumentary no rash, no growths - Neurologic normal coordination, normal sensation - Musculoskeletal normal posture - Psychiatric oriented to time, oriented to person, oriented to place, speech is normal, memory intact Results - Labs 08/23/18 16:01 08/23/18 16:01 Abnormal Lab Results - Last 24 Hours (Table) 08/23/18 08/23/18 Range/Units 16:01 16:01 Glucose 104 H (74-99) mg/dL Urine Appearance Cloudy H (Clear) Urine Protein Trace H (Negative) Urine Blood Large H (Negative) Ur Leukocyte Esterase Moderate H (Negative) Urine RBC 117 H (0-5) /hpf Urine WBC 31 H (0-5) /hpf Ur Squamous Epith Cells 16 H (0-4) /hpf Urine Bacteria Occasional H (None) /hpf Urine Mucus Many H (None) /hpf Diabetes panel 08/23/18 Range/Units 16:01 Sodium 139 (137-145) mmol/L Potassium 3.9 (3.5-5.1) mmol/L Chloride 106 (98-107) mmol/L Carbon Dioxide 25 (22-30) mmol/L BUN 11 (7-17) mg/dL Creatinine 0.66 (0.52-1.04) mg/dL Glucose 104 H (74-99) mg/dL Calcium 9.4 (8.4-10.2) mg/dL AST 18 (14-36) U/L ALT 18 (9-52) U/L Alkaline Phosphatase 51 (38-126) U/L Total Protein 7.8 (6.3-8.2) g/dL Albumin 4.6 (3.5-5.0) g/dL Calcium panel 08/23/18 Range/Units 16:01 Calcium 9.4 (8.4-10.2) mg/dL Albumin 4.6 (3.5-5.0) g/dL Pituitary panel 08/23/18 Range/Units 16:01 Sodium 139 (137-145) mmol/L Potassium 3.9 (3.5-5.1) mmol/L Chloride 106 (98-107) mmol/L Carbon Dioxide 25 (22-30) mmol/L BUN 11 (7-17) mg/dL Creatinine 0.66 (0.52-1.04) mg/dL Glucose 104 H (74-99) mg/dL Calcium 9.4 (8.4-10.2) mg/dL Adrenal panel 08/23/18 Range/Units 16:01 Sodium 139 (137-145) mmol/L Potassium 3.9 (3.5-5.1) mmol/L Chloride 106 (98-107) mmol/L Carbon Dioxide 25 (22-30) mmol/L BUN 11 (7-17) mg/dL Creatinine 0.66 (0.52-1.04) mg/dL Glucose 104 H (74-99) mg/dL Calcium 9.4 (8.4-10.2) mg/dL Total Bilirubin 0.4 (0.2-1.3) mg/dL AST 18 (14-36) U/L ALT 18 (9-52) U/L Alkaline Phosphatase 51 (38-126) U/L Total Protein 7.8 (6.3-8.2) g/dL Albumin 4.6 (3.5-5.0) g/dL - Imaging CT scan - abdomen: report reviewed, image reviewed CT scan - pelvis: report reviewed, image reviewed Assessment and Plan Assessment: Impression: Left ureteral calculus with obstruction. Possible urinary infection. Persistent colic. Recommendations: The patient would like something done with the stone. She will later today undergo cystoscopy ureteroscopy laser lithotripsy and stent placement. Discussed the risks and complications of procedure. She has not had previous problems with anesthetic.
[2018-08-24] MEDS: SODIUM CHLORIDE 0.9% 1,000 ML IV SCH ×2 (08:18→20:43)
[2018-08-24] MEDS ORDERED: IV FLUID CONTINUATION 1,000 ML IV ONE (11:16)
[2018-08-24] MEDS ORDERED: DEXAMETHASONE SOD PHOS (MDV) 100 MG/10 ML VIAL ONE (11:45)
[2018-08-24] MEDS ORDERED: ONDANSETRON 4 MG/2 ML VIAL ONE (11:45)
[2018-08-24] MEDS ORDERED: ceFAZolin 1,000 MG VIAL ONE (11:45)
[2018-08-24] MEDS ORDERED: PROPOFOL 10 MG/ML 20 ML VIAL IV ONE (11:45)
[2018-08-24] MEDS ORDERED: fentaNYL (PF) 50 MCG/ML 2 ML AMP ONE (11:45)
[2018-08-24] MEDS ORDERED: MIDAZOLAM 2 MG/2 ML VIAL ONE (11:45)
[2018-08-24] MEDS ORDERED: LIDOCAINE 1% INJ 10MG/ML (20 ML MDV) ONE (11:45)
[2018-08-24] MEDS ORDERED: SODIUM CHLORIDE 0.9% 50 ML IV ONE (12:06)
--- NOTE | 2018-08-24 12:44 | P.OP ---
Date of Procedure: 08/24/18 Preoperative Diagnosis: left ureteral stone with obstruction possible urinary infection Postoperative Diagnosis: same Procedure(s) Performed: cystoscopy, [left ureteroscopy with laser lithotripsy and stone basketing Anesthesia: TODD Surgeon: Grzegorz Hodgson Estimated Blood Loss (ml): 0 Pathology: other (stone) Condition: stable Disposition: PACU Indications for Procedure: the patient is 23. She has a 5 mm distal ureteral stone with persistent colic she comes for stone manipulation Description of Procedure: patient is brought to the operating suite. She is given a general endotracheal anesthesia. Fluoroscopy identifies a probable stone in the distal left ureter. Cystoscopy Foroblique lens and 22-[place] sheath identifies a normal urethra. The left renal orifice is edematous and mounded the right is normal bladder mucosa is unremarkable. I attempted pass a 7-[place] mini ureteroscope up to the stone but there is too much edema. I'm able to see the stone. Through the cystoscope I then pass a 10-[place] cone-tip catheter to dilate the orifice. I then am able to easily pass the [place] mini ureteroscope up to the stone. With a 3 and 65 probe the stone was broken into tiny pieces and flushed are basketed out of the ureter. The procedure the no remaining stones. There is not enough edema to leave a stent. The bladder strain the patient's awake and returned recovery in good condition. Blood loss is minimal. She'll be placed in the hospital upon recovery and follow up in the office in one week. End of dictation
--- NOTE | 2018-08-24 13:41 | P.HPIM ---
History of Present Illness H&P Date: 08/24/18 Chief Complaint: Left flank and abdominal pain, fever This is a 23-year-old female patient of Dr. Coy with past medical history significant for kidney stones, irritable bowel syndrome, asthma, hypertension not on medication, Raynaud's. Patient presented to [facility] emergency center due to left-sided flank and abdominal pain along with hematuria and fever. She stated it was going on for a week. Temperature max 100.4. She was recently evaluated placed on Cipro and subsequently PCP changed her antibiotics to Keflex. She was afebrile, heart rate 122, patient does have workup as outpatient for tachycardia. Blood pressure 145/91 revealed much improved. White count 9.4 and hemoglobin 13.7. CAT scan of the abdomen and pelvis revealed renal calculi. Lactic acid 1. Urinalysis was cloudy, blood large, leukoesterase moderate, WBC 31 and squamous cell 16. Influenza was negative. HCG not detected. Consult with placed with Dr. Hodgson, patient started on Rocephin and admitted to the [facility] floor. Patient is leaving the room for cystoscopy. Review of Systems All systems: negative Constitutional: Reports chills, Reports fever, Reports poor appetite Eyes: denies blurred vision, denies pain Ears, nose, mouth and throat: Denies dysphagia, Denies headache, Denies mouth pain, Denies sore throat Cardiovascular: Reports palpitations, Denies chest pain, Denies dyspnea on exertion, Denies leg edema, Denies shortness of breath, Denies syncope Respiratory: Denies cough, Denies cough with sputum, Denies dyspnea, Denies excessive sputum, Denies hemoptysis, Denies home oxygen, Denies wheezing Gastrointestinal: Reports abdominal pain, Reports excessive gas, Reports loss of appetite, Denies diarrhea, Denies nausea, Denies vomiting Genitourinary: Denies dysuria, Denies hematuria, Denies urgency Musculoskeletal: Denies myalgias Integumentary: Denies darkening of skin, Denies pruritus, Denies rash, Denies wounds Neurological: Denies aphasia, Denies gait dysfunction, Denies numbness, Denies seizures, Denies weakness Psychiatric: Denies anxiety, Denies depression Endocrine: Denies fatigue, Denies weight change Past Medical History Past Medical History: Asthma Additional Past Medical History / Comment(s): ibs , raynauds History of Any Multi-Drug Resistant Organisms: None Reported Past Surgical History: No Surgical Hx Reported Additional Past Surgical History / Comment(s): colonoscopy, IBS Past Psychological History: No Psychological Hx Reported Smoking Status: Never smoker Past Alcohol Use History: Rare Additional Past Alcohol Use History / Comment(s): Patient is a lifelong nonsmoker. She denies any marijuana or illicit drug use. No alcohol abuse. She drinks alcohol rarely. 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 Past Drug Use History: None Reported - Past Family History Father Additional Family Medical History / Comment(s): Father is alive and he does not follow with a physician. There is known heart disease in his parents. Mother Additional Family Medical History / Comment(s): Mother has history of kidney stones, thyroid cancer and cholecystitis. Sister(s) Additional Family Medical History / Comment(s): Patient has 2 sisters and 1 brother with no major medical problems. Patient does not have any children. Medications and Allergies Home Medications Medication Instructions Recorded Confirmed Type Ketty (Unknown) 1 tab PO DAILY 08/23/18 08/23/18 History Allergies Allergy/AdvReac Type Severity Reaction Status Date / Time egg Allergy Swelling Verified 08/23/18 20:44 blueberry AdvReac Itching Verified 08/23/18 20:44 cefaclor [From Ceclor] AdvReac Rash/Hives Verified 08/23/18 20:44 onion AdvReac Rash/Hives Verified 08/23/18 20:44 Sulfa (Sulfonamide AdvReac Swelling Verified 08/23/18 20:44 Antibiotics) Physical Exam Vitals: Vital Signs Temp Pulse Pulse Pulse Resp BP BP 08/24/18 13:24 69 16 128/60 08/24/18 13:09 86 18 129/81 08/24/18 12:54 97.8 F 85 16 131/101 08/24/18 11:17 99.2 F 98 16 139/79 08/24/18 08:00 16 08/24/18 07:00 97.9 F 103 H 16 129/82 08/23/18 23:55 99.2 F 101 H 16 128/85 08/23/18 20:55 103 H 08/23/18 20:23 98.1 F 93 18 124/87 02/25/19 18:05 99.3 F 100 18 133/78 08/23/18 14:55 98.4 F 122 H 18 145/91 Pulse Ox 08/24/18 13:24 100 08/24/18 13:09 100 08/24/18 12:54 100 08/24/18 11:17 100 08/24/18 08:00 08/24/18 07:00 08/23/18 23:55 100 08/23/18 20:55 08/23/18 20:23 99 08/23/18 18:05 100 08/23/18 14:55 100 Intake and Output 08/23/18 08/24/18 08/24/18 22:59 06:59 14:59 Intake Total 75 750 650 Balance 75 750 650 Intake: IV 650 Intake, IV Titration 75 750 Amount Sodium Chloride 0.9% 1, 75 750 000 ml @ 75 mls/hr IV . [id number] [facility] Rx#:[id number] Other: Voiding Method Toilet Toilet Weight 45.087 kg Gen: This is a thin 23-year-old female. She is resting on a stretcher and appears to be in no acute distress. HEENT: Head is atraumatic, normocephalic. Pupils equal, round. Sclerae is anicteric. NECK: Supple. No JVD. No lymphadenopathy. No thyromegaly. LUNGS: Clear to auscultation. No wheezes or rhonchi. No intercostal retractions. HEART: Regular rate and rhythm. No murmur. ABDOMEN: Soft. Bowel sounds are present. No masses. No tenderness. No suprapubic tenderness. EXTREMITIES: No pedal edema. No calf tenderness. NEUROLOGICAL: Patient is awake, alert and oriented x3. Cranial nerves 2 through 12 are grossly intact. Results CBC & Chem 7: 08/23/18 16:01 08/23/18 16:01 Labs: Abnormal Lab Results - Last 24 Hours (Table) 08/23/18 08/23/18 Range/Units 16:01 16:01 Glucose 104 H (74-99) mg/dL Urine Appearance Cloudy H (Clear) Urine Protein Trace H (Negative) Urine Blood Large H (Negative) Ur Leukocyte Esterase Moderate H (Negative) Urine RBC 117 H (0-5) /hpf Urine WBC 31 H (0-5) /hpf Ur Squamous Epith Cells 16 H (0-4) /hpf Urine Bacteria Occasional H (None) /hpf Urine Mucus Many H (None) /hpf Thrombosis Risk Factor Assmnt - Choose All That Apply Each Factor Represents 1 point: Oral contraceptives or hormone replacement therapy Other Risk Factors: No Other congenital or acquired thrombophilia - If yes, enter type in comment: No Thrombosis Risk Factor Assessment Total Risk Factor Score: 1 Thrombosis Risk Factor Assessment Level: Low Risk Assessment and Plan Plan: 1. Left ureteral calculus with obstruction causing possible urinary tract infection. Consult with Dr. Hodgson with plan for cystoscopy ureteroscopic be laser lithotripsy and stent placement. Urine culture to be obtained. Blood culture in progress. 2. High blood pressure readings. Monitor. 3. Tachycardia, workup as an outpatient. 4. History of asthma, not active. 5. DVT prophylaxis. SCDs and TAMARA hose. 6. GI prophylaxis. Pepcid. Patient will be admitted to the hospital for a minimum of 2 night stay. Discharge plan: Home Impression and plan of care have been directed as dictated by the signing physician. Alice Coelho nurse practitioner acting as scribe for signing physician.
--- NOTE | 2018-08-24 14:28 | FL ---
Fluoroscopy HISTORY: Renal calculi 7 seconds fluoroscopy time supplied to the referring clinician. 0 intraoperative C-arm images docume nt the procedure. See dictated report from urology.
[2018-08-25] MEDS: KETOROLAC 30 MG/ML 1 ML VIAL IVP PRN ×2 (01:58→14:02)
[2018-08-25] MEDS ORDERED: DIAZEPAM 5 MG/ML (10 ML MDV) IVP STA (02:00)
[2018-08-25] MEDS ORDERED: MORPHINE SULFATE 2 MG/ML SYRINGE IVP STA (02:01)
--- NOTE | 2018-08-25 12:11 | P.PN ---
Subjective Progress Note Date: 08/25/18 The patient underwent a left ureteroscopy and laser lithotripsy to a 5 mm distal ureteral stone. The patient had a lot of abdominal bladder pain last night requiring a Cox catheter. He is much more comfortable this morning. The urine is clear. We'll remove the Cox catheter. If she voids without difficulty she'll be discharged home. She'll follow-up in the office in one week. Objective - Vital Signs Vital signs: Vital Signs Temp 98.7 F 08/25/18 07:00 Pulse 90 08/25/18 07:00 Resp 17 08/25/18 07:00 BP 106/67 08/25/18 07:00 Pulse Ox 99 08/25/18 07:00 Intake & Output 08/24/18 08/25/18 08/25/18 18:59 06:59 18:59 Intake Total 1250 Output Total 1500 Balance 1250 -1500 Weight 45.087 kg Intake: IV 650 Intake, IV Titration 600 Amount Sodium Chloride 0.9% 1, 600 000 ml @ 75 mls/hr IV . [id number] [facility] Rx#:[id number] Output: Urine 1500 Other: Voiding Method Toilet Toilet Indwelling Catheter - Labs CBC & Chem 7: 08/23/18 16:01 08/23/18 16:01 Labs: Microbiology - Last 24 Hours (Table) 08/24/18 20:00 Urine Culture - Preliminary Urine,Voided 08/23/18 16:01 Blood Culture - Preliminary Blood No Growth after 24 hours
[2018-08-25] MEDS: FAMOTIDINE 20 MG TAB PO SCH (14:02)
[2018-08-25] MEDS: SODIUM CHLORIDE 0.9% 1,000 ML IV SCH (14:07)
[2018-08-26] MEDS: KETOROLAC 30 MG/ML 1 ML VIAL IVP PRN (02:58)
[2018-08-26] MEDS: SODIUM CHLORIDE 0.9% 1,000 ML IV SCH ×2 (05:10→09:28)
--- NOTE | 2018-08-26 08:17 | P.PN ---
Subjective Progress Note Date: 08/25/18 This is a 23-year-old female patient of Dr. Coy with past medical history significant for kidney stones, irritable bowel syndrome, asthma, hypertension not on medication, Raynaud's. Patient presented to [facility] emergency center due to left-sided flank and abdominal pain along with hematuria and fever. She stated it was going on for a week. Temperature max 100.4. She was recently evaluated placed on Cipro and subsequently PCP changed her antibiotics to Keflex. She was afebrile, heart rate 122, patient does have workup as outpatient for tachycardia. Blood pressure 145/91 revealed much improved. White count 9.4 and hemoglobin 13.7. CAT scan of the abdomen and pelvis revealed renal calculi. Lactic acid 1. Urinalysis was cloudy, blood large, leukoesterase moderate, WBC 31 and squamous cell 16. Influenza was negative. HCG not detected. Consult with placed with Dr. Hodgson, patient started on Rocephin and admitted to the [facility] floor. Patient is leaving the room for cystoscopy. 08/25: Patient underwent cystoscopy, left ureteroscopy with laser lithotripsy and stone basketing with Dr. Hodgson yesterday. Patient states an A-Team was called on her in the senior buyer. She states she was in the bathroom trying to urinate and her heart rate went to 130 then to 160. Cox catheter was placed that had some blood initially but cleared. Her heart rate is currently in the 80-90s, BP 106/87, afebrile. Cox catheter to be removed and monitor for retention. Ho er monitor has been requested patient states that she had one set up for outpatient which we will obtain before she leaves the hospital. Review of Systems All systems: negative Constitutional: Reports chills, Reports fever, Reports poor appetite Eyes: denies blurred vision, denies pain Ears, nose, mouth and throat: Denies dysphagia, Denies headache, Denies mouth pain, Denies sore throat Cardiovascular: Reports palpitations, Denies chest pain, Denies dyspnea on exertion, Denies leg edema, Denies shortness of breath, Denies syncope Respiratory: Denies cough, Denies cough with sputum, Denies dyspnea, Denies excessive sputum, Denies hemoptysis, Denies home oxygen, Denies wheezing Gastrointestinal: Reports abdominal pain, Reports excessive gas, Reports loss of appetite, Denies diarrhea, Denies nausea, Denies vomiting Genitourinary: Denies dysuria, Denies hematuria, Denies urgency, reports urinary retention Musculoskeletal: Denies myalgias Integumentary: Denies darkening of skin, Denies pruritus, Denies rash, Denies wounds Neurological: Denies aphasia, Denies gait dysfunction, Denies numbness, Denies seizures, Denies weakness Psychiatric: Denies anxiety, Denies depression Endocrine: Denies fatigue, Denies weight change Objective - Vital Signs Vital signs: Vital Signs Temp 98.7 F 08/25/18 07:00 Pulse 90 08/25/18 07:00 Resp 17 08/25/18 07:00 BP 106/67 08/25/18 07:00 Pulse Ox 99 08/25/18 07:00 Intake & Output 08/24/18 08/25/18 08/25/18 18:59 06:59 18:59 Intake Total 1250 Output Total 1500 Balance 1250 -1500 Weight 45.087 kg Intake: IV 650 Intake, IV Titration 600 Amount Sodium Chloride 0.9% 1, 600 000 ml @ 75 mls/hr IV . [id number] [facility] Rx#:[id number] Output: Urine 1500 Other: Voiding Method Toilet Toilet Indwelling Catheter - Exam Gen: This is a thin 23-year-old female. She is resting in bed and appears to be in no acute distress. HEENT: Head is atraumatic, normocephalic. Pupils equal, round. Sclerae is anicteric. NECK: Supple. No JVD. No lymphadenopathy. No thyromegaly. LUNGS: Clear to auscultation. No wheezes or rhonchi. No intercostal retractions. HEART: Regular rate and rhythm. No murmur. ABDOMEN: Soft. Bowel sounds are present. No masses. No tenderness. No suprapubic tenderness. EXTREMITIES: No pedal edema. No calf tenderness. NEUROLOGICAL: Patient is awake, alert and oriented x3. Cranial nerves 2 through 12 are grossly intact. - Labs CBC & Chem 7: 08/23/18 16:01 08/23/18 16:01 Labs: Microbiology - Last 24 Hours (Table) 08/24/18 20:00 Urine Culture - Preliminary Urine,Voided 08/23/18 16:01 Blood Culture - Preliminary Blood No Growth after 24 hours Assessment and Plan Plan: 1. Left ureteral calculus with obstruction causing possible urinary tract infection status post cystoscopy, left ureteroscopy with laser lithotrispy and stone basketing with Dr. Hodgson. Urine culture in progress. Blood culture in progress. 2. High blood pressure readings. Monitor. 3. Tachycardia, workup as an outpatient. 4. History of asthma, not active. 5. DVT prophylaxis. SCDs and TAMARA hose. 6. GI prophylaxis. Pepcid. 7. Urinary retention secondary to surgical procedure, not unexpected from surgery. Discharge plan: Home in the morning Impression and plan of care have been directed as dictated by the signing physician. Alice Coelho nurse practitioner acting as scribe for signing physician.
[2018-08-26 08:34] VITALS: BP 104/62; PULSE 86; RESP 16; TEMP 98.7
[2018-08-26] MEDS: FAMOTIDINE 20 MG TAB PO SCH (09:26)
--- NOTE | 2018-08-26 11:44 | P.PN ---
Subjective Progress Note Date: 08/26/18 The patient who underwent a left ureteroscopy and laser lithotripsy was discharged home to but had too much difficulty and discomfort with voiding and thus was kept overnight. She is now voiding well once ago home. She'll be discharged home today. She'll follow-up in the office in one week. Objective - Vital Signs Vital signs: Vital Signs Temp 98.7 F 08/26/18 07:00 Pulse 86 08/26/18 07:00 Resp 16 08/26/18 07:00 BP 104/62 08/26/18 07:00 Pulse Ox 99 08/26/18 07:00 Intake & Output 08/25/18 08/26/18 08/26/18 18:59 06:59 18:59 Intake Total 0 Output Total 400 400 Balance -400 -400 0 Weight 45.087 kg Intake: Oral 0 Output: Urine 400 400 Other: Voiding Method Indwelling Catheter Toilet Toilet # Voids 1 - Labs CBC & Chem 7: 08/23/18 16:01 08/23/18 16:01 Labs: Microbiology - Last 24 Hours (Table) 08/24/18 20:00 Urine Culture - Final Urine,Voided 08/23/18 16:01 Blood Culture - Preliminary Blood No Growth after 48 hours
--- NOTE | 2018-08-27 09:13 | CDI ---
Documentation Clarification Form Date: 08-27-18 From: JUAN Chew Phone: If you have question, contact Sondra Jasmine at [phone] M-F 8:30 am to 6pm Admit Date: 08/23/2018 7:46:00 PM Patient Name: Leana Flores Visit Number: [id number] Discharge Date: 08/26/2018 12:15:00 PM ATTENTION: The Clinical Documentation Specialists (CDI) and [facility] Coding Staff appreciate your assistance in clarifying documentation. Please respond to the clarification below the line at the bottom and electronically sign. The CDI & [facility] Coding staff will review the response and follow-up if needed. Please note: Queries are made part of the Legal Health Record. If you have any questions, please contact the author of this message via ITS. Dr. Favian Ojeda The patient presented with left ureteral calculus with obstruction causing possible UTI. Lithotripsy and stone basketing was performed on the second day of admission. Abdominal CT from 08/23 showed mild left-sided hydronephrosis. According to coding guidelines, findings on a radiology report need to be documented by the physician in order to report. In your professional opinion, can you please clarify if you agree with the radiological finding of hydronephrosis? Yes, hydronephrosis was present No, hydronephrosis was not present Other, please specify Unable to determine Yes, hydronephrosis was present MTDD
--- NOTE | 2018-09-02 12:58 | P.DS ---
Providers Date of admission: 08/23/18 19:46 Expected date of discharge: 08/25/18 Attending physician: Favian Ojeda Consults: 08/23/18 19:05 Consult Physician Routine Consulting Provider: Grzegorz Hodgson Consult Reason/Comments: stone, fever, UTI-failed outpatient Do you want consulting provider notified?: Already Contacted Primary care physician: Miguel Coy [facility] Course: This is a 23-year-old female patient of Dr. Coy with past medical history significant for kidney stones, irritable bowel syndrome, asthma, hypertension not on medication, Raynaud's. Patient presented to [facility] emergency center due to left-sided flank and abdominal pain along with hematuria and fever. She stated it was going on for a week. Temperature max 100.4. She was recently evaluated placed on Cipro and subsequently PCP changed her antibiotics to Keflex. She was afebrile, heart rate 122, patient does have workup as outpatient for tachycardia. Blood pressure 145/91 revealed much improved. White count 9.4 and hemoglobin 13.7. CAT scan of the abdomen and pelvis revealed renal calculi. Lactic acid 1. Urinalysis was cloudy, blood large, leukoesterase moderate, WBC 31 and squamous cell 16. Influenza was negative. HCG not detected. Consult with placed with Dr. Hodgson, patient started on Rocephin and admitted to the [facility] floor. Patient is leaving the room for cystoscopy. 08/25: Patient underwent cystoscopy, left ureteroscopy with laser lithotripsy and stone basketing with Dr. Hodgson yesterday. Patient states an A-Team was called on her in the digital marketing intern. She states she was in the bathroom trying to urinate and her heart rate went to 130 then to 160. Cox catheter was placed that had some blood initially but cleared. Her heart rate is currently in the 80-90s, BP 106/87, afebrile. Cox catheter to be removed and monitor for retention. Holter monitor has been requested patient states that she had one set up for outpatient which we will obtain before she leaves the hospital. 08/26: Patient has had no difficulties overnight. She has been cleared for discharge by Dr. Hodgson. Monitor will be obtained and she was to have this as an outpatient. Patient will be discharged home today in stable condition. Discharge diagnoses: 1. Left ureteral calculus with obstruction causing possible urinary tract inf ection status post cystoscopy, left ureteroscopy with laser lithotrispy and stone basketing with Dr. Hodgson. 2. High blood pressure readings. Monitor. 3. Tachycardia, workup as an outpatient. 4. History of asthma, not active. 5. Urinary retention secondary to surgical procedure, not unexpected from surgery. 6. Mild left hydronephrosis Discharge plan: Home Impression and plan of care have been directed as dictated by the signing physician. Alice Coelho nurse practitioner acting as scribe for signing physician. Patient Condition at Discharge: Good Plan - Discharge Summary Discharge Rx Participant: Yes New Discharge Prescriptions: New Ciprofloxacin HCl [Cipro] 500 mg PO Q12HR #14 tablet Continue Juleber (Unknown) 1 tab PO DAILY Discharge Medication List Juleber (Unknown) 1 tab PO DAILY 08/23/18 [History] Ciprofloxacin HCl [Cipro] 500 mg PO Q12HR #14 tablet 08/25/18 [Rx] Follow up Appointment(s)/Referral(s): Miguel Coy MD [Primary Care Provider] - 09/02/18 1:15 pm Grzegorz Hodgson MD [STAFF PHYSICIAN] - 09/03/18 9:40 am Patient Instructions/Handouts: Kidney Stones (DC) Discharge Disposition: HOME SELF-CARE
--- NOTE | 2018-09-03 09:16 | HM ---
HOLTER MONITOR REPORT DCG: DATE OF THE STUDY: August 23, 2018 The patient was monitored for 24 hours. The baseline rhythm appeared to be a sinus mechanism with a minimum heart rate of 55 beats per minute, max heart rate 133 beats per minute, average heart rate of 82 beats per minute. Ventricular ectopic events presented in less than 1% of the total beats count and presented as isolated PVCs with couplets and trigeminy. Supraventricular ectopic events were presented in less than 1% of the total beats count and presented as isolated PACs with some couplets. The patient did not have any evidence of any sinus pause or sinus arrest. No evidence of advanced AV block seen. The patient did report some symptoms including palpitations and chest pain and the symptoms were associated with normal sinus mechanism, as well as with ventricular ectopies. CONCLUSION: 1. This is a 24-hour Holter monitor. 2. The baseline rhythm is a sinus rhythm. 3. Rare ventricular ectopic events presented. It presented as single PVCs, in couplets, as well as in trigeminy. During these episodes, the patient was symptomatic. 4. Rare supraventricular ectopy events presented. It presented as isolated PACs as well as in couplets. During these episodes, the patient was asymptomatic. 5. No evidence of sinus pause or sinus arrest. 6. No evidence of any advanced AV block seen. 7. No evidence of any atrial fibrillation or atrial flutter. MMODL / IJN: [id number] /
== END 2018-08-26 12:15 | disposition home or self-care (01) | DRG 670 ==
LOC: EC 14:11 → 4SSUR 19:46
PROVIDERS: ADMIT Internal Medicine Geriatric Medicine; ATTEND Internal Medicine Geriatric Medicine
PROC: 0TC78ZZ Extirpation of Matter from Left Ureter, Via Natural or Artificial Opening Endoscopic (ICD-10-PCS; principal; 2018-08-24 07:30)
DX: N13.2 Hydronephrosis with renal and ureteral calculous obstruction (principal); N39.0 Urinary tract infection, site not specified; I10 Essential (primary) hypertension; I73.00 Raynaud's syndrome without gangrene; J45.909 Unspecified asthma, uncomplicated; K58.9 Irritable bowel syndrome, unspecified; Z87.442 Personal history of urinary calculi
CPT/HCPCS: 36415; 74177; 80053; 81001; 81025; 82365; 83605; 85025; 87040; 87086; 87502; 93225; 93226; 96365; 96375; 99285

== ENCOUNTER 2018-11-19 11:42 | Emergency (ER) | payer MEDICAID ==
[2018-11-19] MEDS ORDERED: SODIUM CHLORIDE 0.9% 500 ML 500 ML IV STA (11:57)
[2018-11-19] MEDS ORDERED: SODIUM CHLORIDE 0.9% 1,000 ML IV STA ×3 (11:57→14:08)
[2018-11-19 11:58] VITALS: TEMP 98.5
--- NOTE | 2018-11-19 11:59 | ED ---
Arrhythmia/Palpitations HPI - General Chief Complaint: Arrhythmia/Palpitations Stated Complaint: Tachy Time Seen by Provider: 11/19/18 11:55 Source: patient, EMS, RN notes reviewed, old records reviewed Mode of arrival: EMS Limitations: no limitations - History of Present Illness Initial Comments: This is a 23-year-old female the ER for evaluation. Patient's sent to ER for evaluation of tachycardia elevated heart rate. Patient herself complains of i ncreased cough and congestion, sputum production. No nausea no vomiting no fevers. She does take trazodone but denies abuse, takes half a pill at night, denies any other drugs or alcohol. Patient has been suffering for asthma for about the past month multiple medications multiple antibiotics with no improvement. denies pain MD Complaint: palpitations Context: occurred during rest, occurred during exertion Arrhythmia History: other (Patient family states he always has tachycardia) Associated Symptoms: cough - Related Data Home Medications Medication Instructions Recorded Confirmed Juleber (Unknown) 1 tab PO DAILY 08/23/18 08/23/18 Previous Rx's Medication Instructions Recorded Ciprofloxacin HCl [Cipro] 500 mg PO Q12HR #14 tablet 08/25/18 Allergies Allergy/AdvReac Type Severity Reaction Status Date / Time clindamycin Allergy Rash/Hives Verified 11/19/18 11:52 egg Allergy Swelling Verified 08/23/18 20:44 blueberry AdvReac Itching Verified 08/23/18 20:44 cefaclor [From Ceclor] AdvReac Rash/Hives Verified 08/23/18 20:44 onion AdvReac Rash/Hives Verified 08/23/18 20:44 Sulfa (Sulfonamide AdvReac Swelling Verified 08/23/18 20:44 Antibiotics) Review of Systems ROS Statement: Those systems with pertinent positive or pertinent negative responses have been documented in the HPI. ROS Other: All systems not noted in ROS Statement are negative. Past Medical History Past Medical History: Asthma Additional Past Medical History / Comment(s): ibs , raynauds History of Any Multi-Drug Resistant Organisms: None Reported Past Surgical History: No Surgical Hx Reported Additional Past Surgical History / Comment(s): colonoscopy, IBS Past Psychological History: No Psychological Hx Reported Smoking Status: Never smoker Past Alcohol Use History: Rare Past Drug Use History: None Reported - Past Family History Father Additional Family Medical History / Comment(s): Father is alive and he does not follow with a physician. There is known heart disease in his parents. Mother Additional Family Medical History / Comment(s): Mother has history of kidney stones, thyroid cancer and cholecystitis. Sister(s) Additional Family Medical History / Comment(s): Patient has 2 sisters and 1 brother with no major medical problems. Patient does not have any children. General Exam Limitations: no limitations General appearance: alert, in no apparent distress Head exam: Present: atraumatic, normocephalic, normal inspection Eye exam: Present: normal appearance, PERRL, EOMI. Absent: scleral icterus, conjunctival injection, periorbital swelling ENT exam: Present: normal exam, mucous membranes moist Neck exam: Present: normal inspection. Absent: tenderness, meningismus, ly mphadenopathy Respiratory exam: Present: wheezes. Absent: respiratory distress, rales, rhonchi, stridor Cardiovascular Exam: Present: normal rhythm, tachycardia, normal heart sounds. Absent: systolic murmur, diastolic murmur, rubs, gallop, clicks GI/Abdominal exam: Present: soft, normal bowel sounds. Absent: distended, t enderness, guarding, rebound, rigid Extremities exam: Present: normal inspection, full ROM, normal capillary refill. Absent: tenderness, pedal edema, joint swelling, calf tenderness Back exam: Present: normal inspection Neurological exam: Present: alert, oriented X3, CN II-XII intact Psychiatric exam: Present: normal affect, normal mood Skin exam: Present: warm, dry, intact, normal color. Absent: rash Course Vital Signs 11/19/18 11/19/18 11/19/18 11:52 12:39 13:50 Temperature 98.5 F Pulse Rate 133 H 113 H 107 H Respiratory 20 18 18 Rate Blood Pressure 158/95 138/81 143/86 O2 Sat by Pulse 100 100 100 Oximetry - Reevaluation(s) Reevaluation #1: 11/19/18 14:34 Medical records reviewed Reevaluation #2: 11/19/18 14:34 Heart rate improvement improve significantly the ER stay, family states is usually over 100 currently now in the 90s. Patient is not syncopal or presyncopal with no pain EKG Findings - EKG Comments: EKG Findings:: EKG shows sinus tachycardia rate 1.2, [place] 1:30, QRS 74, QTC 418 Medical Decision Making - Medical Decision Making 23 female the ER for evaluation of tachycardia. Per family doctor blood pressure or heart rate was 160 in his office, but struggling with asthma exacerbation for about a month. Cough and occasional shortness of breath, no signs no definitive cause found here CT is negative, labwork is normal. Patient will continue to follow-up with cardiology for further evaluation of tachycardia - Lab Data Result diagrams: 11/19/18 12:16 11/19/18 12:16 Lab Results 11/19/18 11/19/18 11/19/18 Range/Units 12:16 12:16 12:16 WBC 9.8 (3.8-10.6) k/uL RBC 4.23 (3.80-5.40) m/uL Hgb 11.8 (11.4-16.0) gm/dL Hct 34.9 (34.0-46.0) % MCV 82.6 (80.0-100.0) fL MCH 27.9 (25.0-35.0) pg MCHC 33.8 (31.0-37.0) g/dL RDW 13.6 (11.5-15.5) % Plt Count 315 (150-450) k/uL Neutrophils % 83 % Lymphocytes % 10 % Monocytes % 5 % Eosinophils % 0 % Basophils % 0 % Neutrophils # 8.1 H (1.3-7.7) k/uL Lymphocytes # 1.0 (1.0-4.8) k/uL Monocytes # 0.5 (0-1.0) k/uL Eosinophils # 0.0 (0-0.7) k/uL Basophils # 0.0 (0-0.2) k/uL PT 9.9 (9.0-12.0) sec INR 0.9 (<1.2) APTT 25.5 (22.0-30.0) sec D-Dimer 0.18 (<0.60) mg/L FEU Sodium 137 (137-145) mmol/L Potassium 4.1 (3.5-5.1) mmol/L Chloride 107 (98-107) mmol/L Carbon Dioxide 23 (22-30) mmol/L Anion Gap 7 mmol/L BUN 9 (7-17) mg/dL Creatinine 0.51 L (0.52-1.04) mg/dL Est GFR (CKD-EPI)AfAm >90 (>60 ml/min/1.73 sqM) Est GFR (CKD-EPI)NonAf >90 (>60 ml/min/1.73 sqM) Glucose 110 H (74-99) mg/dL Calcium 9.2 (8.4-10.2) mg/dL Phosphorus 2.4 L (2.5-4.5) mg/dL Magnesium 2.0 (1.6-2.3) mg/dL Total Bilirubin 0.2 (0.2-1.3) mg/dL AST 11 L (14-36) U/L ALT 11 (9-52) U/L Alkaline Phosphatase 54 (38-126) U/L Creatine Kinase 44 (30-135) U/L Troponin I (0.000-0.034) ng/mL NT-Pro-B Natriuret Pep pg/mL Total Protein 7.2 (6.3-8.2) g/dL Albumin 4.1 (3.5-5.0) g/dL TSH 0.384 L (0.465-4.680) mIU/L Free T4 1.37 (0.78-2.19) ng/dL Urine Color Urine Appearance (Clear) Urine pH (5.0-8.0) Ur Specific [place] (1.001-1.035) Urine Protein (Negative) Urine Glucose (UA) (Negative) Urine Ketones (Negative) Urine Blood (Negative) Urine Nitrite (Negative) Urine Bilirubin (Negative) Urine Urobilinogen (<2.0) mg/dL Ur Leukocyte Esterase (Negative) Urine RBC (0-5) /hpf Urine WBC (0-5) /hpf Ur Squamous Epith Cells (0-4) /hpf Urine Bacteria (None) /hpf Urine Mucus (None) /hpf Urine HCG, Qual (Not Detectd) Urine Opiates Screen (NotDetected) Ur Oxycodone Screen (NotDetected) Urine Methadone Screen (NotDetected) Ur Propoxyphene Screen (NotDetected) Ur Barbiturates Screen (NotDetected) U Tricyclic Antidepress (NotDetected) Ur Phencyclidine Scrn (NotDetected) Ur Amphetamines Screen (NotDetected) U Methamphetamines Scrn (NotDetected) U Benzodiazepines Scrn (NotDetected) Urine Cocaine Screen (NotDetected) U Marijuana (THC) Screen (NotDetected) 11/19/18 11/19/18 11/19/18 Range/Units 12:16 12:16 12:16 WBC (3.8-10.6) k/uL RBC (3.80-5.40) m/uL Hgb (11.4-16.0) gm/dL Hct (34.0-46.0) % MCV (80.0-100.0) fL MCH (25.0-35.0) pg MCHC (31.0-37.0) g/dL RDW (11.5-15.5) % Plt Count (150-450) k/uL Neutrophils % % Lymphocytes % % Monocytes % % Eosinophils % % Basophils % % Neutrophils # (1.3-7.7) k/uL Lymphocytes # (1.0-4.8) k/uL Monocytes # (0-1.0) k/uL Eosinophils # (0-0.7) k/uL Basophils # (0-0.2) k/uL PT (9.0-12.0) sec INR (<1.2) APTT (22.0-30.0) sec D-Dimer (<0.60) mg/L FEU Sodium (137-145) mmol/L Potassium (3.5-5.1) mmol/L Chloride (98-107) mmol/L Carbon Dioxide (22-30) mmol/L Anion Gap mmol/L BUN (7-17) mg/dL Creatinine (0.52-1.04) mg/dL Est GFR (CKD-EPI)AfAm (>60 ml/min/1.73 sqM) Est GFR (CKD-EPI)NonAf (>60 ml/min/1.73 sqM) Glucose (74-99) mg/dL Calcium (8.4-10.2) mg/dL Phosphorus (2.5-4.5) mg/dL Magnesium (1.6-2.3) mg/dL Total Bilirubin (0.2-1.3) mg/dL AST (14-36) U/L ALT (9-52) U/L Alkaline Phosphatase (38-126) U/L Creatine Kinase (30-135) U/L Troponin I (0.000-0.034) ng/mL NT-Pro-B Natriuret Pep 263 pg/mL Total Protein (6.3-8.2) g/dL Albumin (3.5-5.0) g/dL TSH (0.465-4.680) mIU/L Free T4 (0.78-2.19) ng/dL Urine Color Yellow Urine Appearance Cloudy H (Clear) Urine pH 6.0 (5.0-8.0) Ur Specific [place] 1.028 (1.001-1.035) Urine Protein Trace H (Negative) Urine Glucose (UA) Trace H (Negative) Urine Ketones Negative (Negative) Urine Blood Small H (Negative) Urine Nitrite Negative (Negative) Urine Bilirubin Negative (Negative) Urine Urobilinogen <2.0 (<2.0) mg/dL Ur Leukocyte Esterase Large H (Negative) Urine RBC 7 H (0-5) /hpf Urine WBC 38 H (0-5) /hpf Ur Squamous Epith Cells 38 H (0-4) /hpf Urine Bacteria Rare H (None) /hpf Urine Mucus Occasional H (None) /hpf Urine HCG, Qual Not Detected (Not Detectd) Urine Opiates Screen Not Detected (NotDetected) Ur Oxycodone Screen Not Detected (NotDetected) Urine Methadone Screen Not Detected (NotDetected) Ur Propoxyphene Screen Not Detected (NotDetected) Ur Barbiturates Screen Not Detected (NotDetected) U Tricyclic Antidepress Not Detected (NotDetected) Ur Phencyclidine Scrn Not Detected (NotDetected) Ur Amphetamines Screen Not Detected (NotDetected) U Methamphetamines Scrn Not Detected (NotDetected) U Benzodiazepines Scrn Not Detected (NotDetected) Urine Cocaine Screen Not Detected (NotDetected) U Marijuana (THC) Screen Not Detected (NotDetected) 11/19/18 Range/Units 12:16 WBC (3.8-10.6) k/uL RBC (3.80-5.40) m/uL Hgb (11.4-16.0) gm/dL Hct (34.0-46.0) % MCV (80.0-100.0) fL MCH (25.0-35.0) pg MCHC (31.0-37.0) g/dL RDW (11.5-15.5) % Plt Count (150-450) k/uL Neutrophils % % Lymphocytes % % Monocytes % % Eosinophils % % Basophils % % Neutrophils # (1.3-7.7) k/uL Lymphocytes # (1.0-4.8) k/uL Monocytes # (0-1.0) k/uL Eosinophils # (0-0.7) k/uL Basophils # (0-0.2) k/uL PT (9.0-12.0) sec INR (<1.2) APTT (22.0-30.0) sec D-Dimer (<0.60) mg/L FEU Sodium (137-145) mmol/L Potassium (3.5-5.1) mmol/L Chloride (98-107) mmol/L Carbon Dioxide (22-30) mmol/L Anion Gap mmol/L BUN (7-17) mg/dL Creatinine (0.52-1.04) mg/dL Est GFR (CKD-EPI)AfAm (>60 ml/min/1.73 sqM) Est GFR (CKD-EPI)NonAf (>60 ml/min/1.73 sqM) Glucose (74-99) mg/dL Calcium (8.4-10.2) mg/dL Phosphorus (2.5-4.5) mg/dL Magnesium (1.6-2.3) mg/dL Total Bilirubin (0.2-1.3) mg/dL AST (14-36) U/L ALT (9-52) U/L Alkaline Phosphatase (38-126) U/L Creatine Kinase (30-135) U/L Troponin I <0.012 (0.000-0.034) ng/mL NT-Pro-B Natriuret Pep pg/mL Total Protein (6.3-8.2) g/dL Albumin (3.5-5.0) g/dL TSH (0.465-4.680) mIU/L Free T4 (0.78-2.19) ng/dL Urine Color Urine Appearance (Clear) Urine pH (5.0-8.0) Ur Specific [place] (1.001-1.035) Urine Protein (Negative) Urine Glucose (UA) (Negative) Urine Ketones (Negative) Urine Blood (Negative) Urine Nitrite (Negative) Urine Bilirubin (Negative) Urine Urobilinogen (<2.0) mg/dL Ur Leukocyte Esterase (Negative) Urine RBC (0-5) /hpf Urine WBC (0-5) /hpf Ur Squamous Epith Cells (0-4) /hpf Urine Bacteria (None) /hpf Urine Mucus (None) /hpf Urine HCG, Qual (Not Detectd) Urine Opiates Screen (NotDetected) Ur Oxycodone Screen (NotDetected) Urine Methadone Screen (NotDetected) Ur Propoxyphene Screen (NotDetected) Ur Barbiturates Screen (NotDetected) U Tricyclic Antidepress (NotDetected) Ur Phencyclidine Scrn (NotDetected) Ur Amphetamines Screen (NotDetected) U Methamphetamines Scrn (NotDetected) U Benzodiazepines Scrn (NotDetected) Urine Cocaine Screen (NotDetected) U Marijuana (THC) Screen (NotDetected) - Radiology Data Radiology results: report reviewed (CT anginal chest is negative for acute disease), image reviewed Disposition Clinical Impression: Tachycardia, Asthma Disposition: HOME SELF-CARE Condition: Good Instructions (If sedation given, give patient instructions): Tachycardia (ED) Is patient prescribed a controlled substance at d/c from ED?: No Referrals: Miguel Coy MD [Primary Care Provider] - 1-2 days
[2018-11-19 12:33] LABS: Basophils % (A) 0 %; Eosinophils % (A) 0 %; HCT 34.9 % (34.0-46.0); HGB 11.8 gm/dL (11.4-16.0); Lymphocytes % (A) 10 %; MCH 27.9 pg (25.0-35.0); MCHC 33.8 g/dL (31.0-37.0); MCV 82.6 fL (80.0-100.0); Mean Platelet Volume 6.1; Monocytes # (A) 0.5 k/uL (0-1.0); Monocytes % (A) 5 %; Neutrophils # (A) 8.1 k/uL (1.3-7.7); Neutrophils % (A) 83 %; Platelet Count 315 k/uL (150-450); RBC 4.23 m/uL (3.80-5.40); RDW 13.6 % (11.5-15.5); WBC 9.8 k/uL (3.8-10.6)
[2018-11-19 12:46] LABS: Appearance,Urine Cloudy (Clear); Bacteria,Urine Rare /hpf; Bilirubin,Urine Negative (Negative); Blood,Urine Small (Negative); Color,Urine Yellow; Glucose,Urine (UA) Trace (Negative); Ketones,Urine Negative (Negative); Leukocyte Esterase,Urine Large (Negative); Mucus,Urine Occasional /hpf; Nitrite,Urine Negative (Negative); Protein,Urine Trace (Negative); RBC,Urine 7 /hpf (0-5); Specific Gravity,Urine 1.028 (1.001-1.035); Squamous Epithelial Cell,Urine 38 /hpf (0-4); Urobilinogen,Urine <2.0 mg/dL (<2.0); WBC,Urine 38 /hpf (0-5)
[2018-11-19 12:48] LABS: D-Dimer 0.18 mg/L FEU (<0.60); INR 0.9 (<1.2); Partial Thromboplastin Time 25.5 sec (22.0-30.0); Prothrombin Time 9.9 sec (9.0-12.0)
[2018-11-19 12:50] LABS: ALT 11 U/L (9-52); AST 11 U/L (14-36); Albumin 4.1 g/dL (3.5-5.0); Alkaline Phosphatase 54 U/L (38-126); Anion Gap 7 mmol/L; Blood Urea Nitrogen 9 mg/dL (7-17); Calcium 9.2 mg/dL (8.4-10.2); Carbon Dioxide 23 mmol/L (22-30); Chloride 107 mmol/L (98-107); Creatine Kinase 44 U/L (30-135); Glucose 110 mg/dL (74-99); Phosphorus 2.4 mg/dL (2.5-4.5); Potassium 4.1 mmol/L (3.5-5.1); Sodium 137 mmol/L (137-145); Total Bilirubin 0.2 mg/dL (0.2-1.3); Total Protein 7.2 g/dL (6.3-8.2)
[2018-11-19 12:51] LABS: Amphetamine Screen,Urine Not Detected (NotDetected); Barbiturate Screen,Urine Not Detected (NotDetected); Benzodiazepines Screen,Urine Not Detected (NotDetected); Cocaine Screen,Urine Not Detected (NotDetected); Methadone Screen, Urine Not Detected (NotDetected); Opiate Screen,Urine Not Detected (NotDetected); Oxycodone Screen, Urine Not Detected (NotDetected); Phencyclidine Screen,Urine Not Detected (NotDetected); Tricyclic Antidepressant,Urine Not Detected (NotDetected); Urn Cannabinoid Scrn Not Detected (NotDetected)
--- NOTE | 2018-11-19 13:49 | CT ---
EXAMINATION TYPE: CT angio chest DATE OF EXAM: 11/19/2018 COMPARISON: None HISTORY: Chest pain, cough CT DLP: 171.6 mGycm CONTRAST: CT chest with contrast and 3D reconstruction with MIP imaging is performed with IV Contrast, patient injected with 100 mL of Isovue 370. Contrast-enhanced CT of the chest was performed through the course of the pulmonary arteries with william g and mediastinal window settings submitted. 3D reconstruction with MIP imaging was also performed. PULMONARY ARTERIES: The pulmonary arteries and their major tributaries are patent. I do not see aracely dence for sizable filling defect to suggest pulmonary embolic process. LUNGS: The lungs are clear and free of infiltrate. No evidence for atelectasis. No pulmonary nodule or mass is detected. No pleural effusion. MEDIASTINUM: Thoracic aorta is of normal caliber,however, evaluation is limited given timing of the contrast bolus. If there is concern for thoracic aortic pathology consider AUDI. Correlate clinicall y . The heart is not enlarged. No evidence for mediastinal mass. No mediastinal lymph nodes greater than 1cm. HILAR STRUCTURES: No evidence for mass. No hilar lymph nodes greater than 1 cm. UPPER ABDOMEN: No significant abnormality is seen. IMPRESSION: 1. No evidence for Pulmonary embolism at this time.
[2018-11-19 13:50] LABS: T4, Free (Free Thyroxine) 1.37 ng/dL (0.78-2.19)
[2018-11-19] MEDS ORDERED: KETOROLAC 30 MG/ML 1 ML VIAL IVP STA (14:08)
[2018-11-19] MEDS ORDERED: DIAZEPAM 5 MG/ML 2 ML INJ IVP STA (14:08)
[2018-11-19 15:45] VITALS: BP 120/80; PULSE 90; RESP 16
--- NOTE | 2018-11-19 15:47 | ED ---
Medical Decision Making - Lab Data Result diagrams: 11/19/18 12:16 11/19/18 12:16 Lab Results 11/19/18 11/19/18 11/19/18 Range/Units 12:16 12:16 12:16 WBC 9.8 (3.8-10.6) k/uL RBC 4.23 (3.80-5.40) m/uL Hgb 11.8 (11.4-16.0) gm/dL Hct 34.9 (34.0-46.0) % MCV 82.6 (80.0-100.0) fL MCH 27.9 (25.0-35.0) pg MCHC 33.8 (31.0-37.0) g/dL RDW 13.6 (11.5-15.5) % Plt Count 315 (150-450) k/uL Neutrophils % 83 % Lymphocytes % 10 % Monocytes % 5 % Eosinophils % 0 % Basophils % 0 % Neutrophils # 8.1 H (1.3-7.7) k/uL Lymphocytes # 1.0 (1.0-4.8) k/uL Monocytes # 0.5 (0-1.0) k/uL Eosinophils # 0.0 (0-0.7) k/uL Basophils # 0.0 (0-0.2) k/uL PT 9.9 (9.0-12.0) sec INR 0.9 (<1.2) APTT 25.5 (22.0-30.0) sec D-Dimer 0.18 (<0.60) mg/L FEU Sodium 137 (137-145) mmol/L Potassium 4.1 (3.5-5.1) mmol/L Chloride 107 (98-107) mmol/L Carbon Dioxide 23 (22-30) mmol/L Anion Gap 7 mmol/L BUN 9 (7-17) mg/dL Creatinine 0.51 L (0.52-1.04) mg/dL Est GFR (CKD-EPI)AfAm >90 (>60 ml/min/1.73 sqM) Est GFR (CKD-EPI)NonAf >90 (>60 ml/min/1.73 sqM) Glucose 110 H (74-99) mg/dL Calcium 9.2 (8.4-10.2) mg/dL Phosphorus 2.4 L (2.5-4.5) mg/dL Magnesium 2.0 (1.6-2.3) mg/dL Total Bilirubin 0.2 (0.2-1.3) mg/dL AST 11 L (14-36) U/L ALT 11 (9-52) U/L Alkaline Phosphatase 54 (38-126) U/L Creatine Kinase 44 (30-135) U/L Troponin I (0.000-0.034) ng/mL NT-Pro-B Natriuret Pep pg/mL Total Protein 7.2 (6.3-8.2) g/dL Albumin 4.1 (3.5-5.0) g/dL TSH 0.384 L (0.465-4.680) mIU/L Free T4 1.37 (0.78-2.19) ng/dL Urine Color Urine Appearance (Clear) Urine pH (5.0-8.0) Ur Specific [place] (1.001-1.035) Urine Protein (Negative) Urine Glucose (UA) (Negative) Urine Ketones (Negative) Urine Blood (Negative) Urine Nitrite (Negative) Urine Bilirubin (Negative) Urine Urobilinogen (<2.0) mg/dL Ur Leukocyte Esterase (Negative) Urine RBC (0-5) /hpf Urine WBC (0-5) /hpf Ur Squamous Epith Cells (0-4) /hpf Urine Bacteria (None) /hpf Urine Mucus (None) /hpf Urine HCG, Qual (Not Detectd) Urine Opiates Screen (NotDetected) Ur Oxycodone Screen (NotDetected) Urine Methadone Screen (NotDetected) Ur Propoxyphene Screen (NotDetected) Ur Barbiturates Screen (NotDetected) U Tricyclic Antidepress (NotDetected) Ur Phencyclidine Scrn (NotDetected) Ur Amphetamines Screen (NotDetected) U Methamphetamines Scrn (NotDetected) U Benzodiazepines Scrn (NotDetected) Urine Cocaine Screen (NotDetected) U Marijuana (THC) Screen (NotDetected) 11/19/18 11/19/18 11/19/18 Range/Units 12:16 12:16 12:16 WBC (3.8-10.6) k/uL RBC (3.80-5.40) m/uL Hgb (11.4-16.0) gm/dL Hct (34.0-46.0) % MCV (80.0-100.0) fL MCH (25.0-35.0) pg MCHC (31.0-37.0) g/dL RDW (11.5-15.5) % Plt Count (150-450) k/uL Neutrophils % % Lymphocytes % % Monocytes % % Eosinophils % % Basophils % % Neutrophils # (1.3-7.7) k/uL Lymphocytes # (1.0-4.8) k/uL Monocytes # (0-1.0) k/uL Eosinophils # (0-0.7) k/uL Basophils # (0-0.2) k/uL PT (9.0-12.0) sec INR (<1.2) APTT (22.0-30.0) sec D-Dimer (<0.60) mg/L FEU Sodium (137-145) mmol/L Potassium (3.5-5.1) mmol/L Chloride (98-107) mmol/L Carbon Dioxide (22-30) mmol/L Anion Gap mmol/L BUN (7-17) mg/dL Creatinine (0.52-1.04) mg/dL Est GFR (CKD-EPI)AfAm (>60 ml/min/1.73 sqM) Est GFR (CKD-EPI)NonAf (>60 ml/min/1.73 sqM) Glucose (74-99) mg/dL Calcium (8.4-10.2) mg/dL Phosphorus (2.5-4.5) mg/dL Magnesium (1.6-2.3) mg/dL Total Bilirubin (0.2-1.3) mg/dL AST (14-36) U/L ALT (9-52) U/L Alkaline Phosphatase (38-126) U/L Creatine Kinase (30-135) U/L Troponin I (0.000-0.034) ng/mL NT-Pro-B Natriuret Pep 263 pg/mL Total Protein (6.3-8.2) g/dL Albumin (3.5-5.0) g/dL TSH (0.465-4.680) mIU/L Free T4 (0.78-2.19) ng/dL Urine Color Yellow Urine Appearance Cloudy H (Clear) Urine pH 6.0 (5.0-8.0) Ur Specific [place] 1.028 (1.001-1.035) Urine Protein Trace H (Negative) Urine Glucose (UA) Trace H (Negative) Urine Ketones Negative (Negative) Urine Blood Small H (Negative) Urine Nitrite Negative (Negative) Urine Bilirubin Negative (Negative) Urine Urobilinogen <2.0 (<2.0) mg/dL Ur Leukocyte Esterase Large H (Negative) Urine RBC 7 H (0-5) /hpf Urine WBC 38 H (0-5) /hpf Ur Squamous Epith Cells 38 H (0-4) /hpf Urine Bacteria Rare H (None) /hpf Urine Mucus Occasional H (None) /hpf Urine HCG, Qual Not Detected (Not Detectd) Urine Opiates Screen Not Detected (NotDetected) Ur Oxycodone Screen Not Detected (NotDetected) Urine Methadone Screen Not Detected (NotDetected) Ur Propoxyphene Screen Not Detected (NotDetected) Ur Barbiturates Screen Not Detected (NotDetected) U Tricyclic Antidepress Not Detected (NotDetected) Ur Phencyclidine Scrn Not Detected (NotDetected) Ur Amphetamines Screen Not Detected (NotDetected) U Methamphetamines Scrn Not Detected (NotDetected) U Benzodiazepines Scrn Not Detected (NotDetected) Urine Cocaine Screen Not Detected (NotDetected) U Marijuana (THC) Screen Not Detected (NotDetected) 11/19/18 Range/Units 12:16 WBC (3.8-10.6) k/uL RBC (3.80-5.40) m/uL Hgb (11.4-16.0) gm/dL Hct (34.0-46.0) % MCV (80.0-100.0) fL MCH (25.0-35.0) pg MCHC (31.0-37.0) g/dL RDW (11.5-15.5) % Plt Count (150-450) k/uL Neutrophils % % Lymphocytes % % Monocytes % % Eosinophils % % Basophils % % Neutrophils # (1.3-7.7) k/uL Lymphocytes # (1.0-4.8) k/uL Monocytes # (0-1.0) k/uL Eosinophils # (0-0.7) k/uL Basophils # (0-0.2) k/uL PT (9.0-12.0) sec INR (<1.2) APTT (22.0-30.0) sec D-Dimer (<0.60) mg/L FEU Sodium (137-145) mmol/L Potassium (3.5-5.1) mmol/L Chloride (98-107) mmol/L Carbon Dioxide (22-30) mmol/L Anion Gap mmol/L BUN (7-17) mg/dL Creatinine (0.52-1.04) mg/dL Est GFR (CKD-EPI)AfAm (>60 ml/min/1.73 sqM) Est GFR (CKD-EPI)NonAf (>60 ml/min/1.73 sqM) Glucose (74-99) mg/dL Calcium (8.4-10.2) mg/dL Phosphorus (2.5-4.5) mg/dL Magnesium (1.6-2.3) mg/dL Total Bilirubin (0.2-1.3) mg/dL AST (14-36) U/L ALT (9-52) U/L Alkaline Phosphatase (38-126) U/L Creatine Kinase (30-135) U/L Troponin I <0.012 (0.000-0.034) ng/mL NT-Pro-B Natriuret Pep pg/mL Total Protein (6.3-8.2) g/dL Albumin (3.5-5.0) g/dL TSH (0.465-4.680) mIU/L Free T4 (0.78-2.19) ng/dL Urine Color Urine Appearance (Clear) Urine pH (5.0-8.0) Ur Specific [place] (1.001-1.035) Urine Protein (Negative) Urine Glucose (UA) (Negative) Urine Ketones (Negative) Urine Blood (Negative) Urine Nitrite (Negative) Urine Bilirubin (Negative) Urine Urobilinogen (<2.0) mg/dL Ur Leukocyte Esterase (Negative) Urine RBC (0-5) /hpf Urine WBC (0-5) /hpf Ur Squamous Epith Cells (0-4) /hpf Urine Bacteria (None) /hpf Urine Mucus (None) /hpf Urine HCG, Qual (Not Detectd) Urine Opiates Screen (NotDetected) Ur Oxycodone Screen (NotDetected) Urine Methadone Screen (NotDetected) Ur Propoxyphene Screen (NotDetected) Ur Barbiturates Screen (NotDetected) U Tricyclic Antidepress (NotDetected) Ur Phencyclidine Scrn (NotDetected) Ur Amphetamines Screen (NotDetected) U Methamphetamines Scrn (NotDetected) U Benzodiazepines Scrn (NotDetected) Urine Cocaine Screen (NotDetected) U Marijuana (THC) Screen (NotDetected) Disposition Clinical Impression: Tachycardia, Asthma Disposition: HOME SELF-CARE Condition: Good Instructions (If sedation given, give patient instructions): Tachycardia (ED) Is patient prescribed a controlled substance at d/c from ED?: No Referrals: Ulices Ray MD [STAFF PHYSICIAN] - 1-2 days
== END 2018-11-19 15:50 | disposition home or self-care (01) ==
LOC: EC 11:42
DX: J45.909 Unspecified asthma, uncomplicated (principal); R00.0 Tachycardia, unspecified; R05 Cough; Z79.3 Long term (current) use of hormonal contraceptives; Z88.1 Allergy status to other antibiotic agents; Z91.012 Allergy to eggs; Z91.018 Allergy to other foods; Z88.2 Allergy status to sulfonamides
CPT/HCPCS: 36415; 93005; 85379; 84439; 83880; 80053; 84443; 82550; 83735; 84100; 84484; 85025; 85610; 85730; 81001; 81025; 80306; 87086; 71275; 99285; 96374; 96375; 96361 ×3; J3360; J1885; Q9967

== ENCOUNTER 2018-12-09 06:50 | Emergency (ER) | payer MEDICAID ==
[2018-12-09] MEDS ORDERED: ACETAMINOPHEN TAB 500 MG TAB PO STA (07:11)
[2018-12-09] MEDS ORDERED: KETOROLAC 30 MG/ML 1 ML VIAL IVP STA (07:18)
[2018-12-09] MEDS ORDERED: ONDANSETRON 4 MG/2 ML VIAL IVP STA (07:18)
[2018-12-09] MEDS ORDERED: SODIUM CHLORIDE 0.9% 1,000 ML IV ONE (07:18)
--- NOTE | 2018-12-09 07:24 | ED ---
ENT HPI - General Chief complaint: ENT Stated complaint: Fever,Vomiting Time Seen by Provider: 12/09/18 07:10 Source: patient, RN notes reviewed, old records reviewed Mode of arrival: ambulatory Limitations: no limitations - History of Present Illness Initial comments: Patient is a 23-year-old female presents to return today with 2 days of fevers, sore throat, chills. She reports that subsequent to vomiting and diarrhea today. Patient states that she's had history of tonsillitis SINCE MARCH. SHE HAD TONSILLITIS APPROXIMATELY ONE MONTH AGO. Patient denies any recent shortness of breath, chest pain, back pain, abdominal pain, numbness or tingling, dysuria or hematuria, constipation or diarrhea, headaches or visual changes, or any other current symptoms - Related Data Home Medications Medication Instructions Recorded Confirmed Juleber 0.15/30mg 1 tab PO DAILY 12/09/18 12/09/18 Metoprolol Tartrate [Lopressor] 25 mg PO BID 12/09/18 12/09/18 traZODone HCL 12.5 mg PO HS 12/09/18 12/09/18 Previous Rx's Medication Instructions Recorded Azithromycin [Zithromax Z-pack] 250 mg PO DIRECTED #6 tab 12/09/18 methylPREDNISolone Dose Pack 4 mg PO DIRECTED #21 package 12/09/18 [Medrol Dose Pack] Allergies Allergy/AdvReac Type Severity Reaction Status Date / Time clindamycin Allergy Rash/Hives Verified 12/09/18 07:54 egg Allergy Swelling Verified 12/09/18 07:54 blueberry AdvReac Itching Verified 12/09/18 07:54 cefaclor [From Ceclor] AdvReac Rash/Hives Verified 12/09/18 07:54 onion AdvReac Rash/Hives Verified 12/09/18 07:54 Sulfa (Sulfonamide AdvReac Swelling Verified 12/09/18 07:54 Antibiotics) Review of Systems ROS Statement: Those systems with pertinent positive or pertinent negative responses have been documented in the HPI. ROS Other: All systems not noted in ROS Statement are negative. Past Medical History Past Medical History: Asthma Additional Past Medical History / Comment(s): ibs , raynauds History of Any Multi-Drug Resistant Organisms: None Reported Past Surgical History: No Surgical Hx Reported Additional Past Surgical History / Comment(s): colonoscopy Past Psychological History: No Psychological Hx Reported Smoking Status: Never smoker Past Alcohol Use History: Rare Past Drug Use History: None Reported - Past Family History Father Additional Family Medical History / Comment(s): Father is alive and he does not follow with a physician. There is known heart disease in his parents. Mother Additional Family Medical History / Comment(s): Mother has history of kidney stones, thyroid cancer and cholecystitis. Sister(s) Additional Family Medical History / Comment(s): Patient has 2 sisters and 1 brother with no major medical problems. Patient does not have any children. General Exam - General Exam Comments Initial Comments: 23-year-old female. Alert and oriented. No Distress. Limitations: no limitations General appearance: alert, in no apparent distress Head exam: Present: atraumatic, normocephalic, normal inspection Eye exam: Present: normal appearance, PERRL, EOMI. Absent: scleral icterus, conjunctival injection, periorbital swelling ENT exam: Present: normal exam, mucous membranes moist. Absent: normal oropharynx (Erythematous oropharynx. Evidence of exudates. Enlarged tonsils bilaterally. No evidence of peritonsillar abscess.) Neck exam: Present: normal inspection. Absent: tenderness, meningismus, lymph adenopathy Respiratory exam: Present: normal lung sounds bilaterally. Absent: respiratory distress, wheezes, rales, rhonchi, stridor Cardiovascular Exam: Present: regular rate, normal rhythm, normal heart sounds. Absent: systolic murmur, diastolic murmur, rubs, gallop, clicks GI/Abdominal exam: Present: soft, normal bowel sounds. Absent: distended, tenderness, guarding, rebound, rigid Extremities exam: Present: normal inspection, full ROM, normal capillary refill. Absent: tenderness, pedal edema, joint swelling, calf tenderness Back exam: Present: normal inspection Neurological exam: Present: alert, oriented X3, CN II-XII intact Psychiatric exam: Present: normal affect, normal mood Skin exam: Present: warm, dry, intact, normal color. Absent: rash Course Vital Signs 12/09/18 06:56 Temperature 100.2 F H Pulse Rate 138 H Respiratory 18 Rate Blood Pressure 121/76 O2 Sat by Pulse 98 Oximetry Medical Decision Making - Medical Decision Making 23-year-old female presents emergency room with sore throat, fevers chills, episodes of vomiting. Patient has bilateral tonsillar erythema and exudate. Patient was given IV fluids, Toradol and Tylenol. Influenza rapid strep and heterophile are negative. Patient does have exudative tonsils, and concern for possibility of bacterial pharyngitis. We will put the Patient on azithromycin at this time. Patient advised of close follow-up with PCP. We'll also discharge Patient with steroids, and advised to do Chloraseptic rinses. All questions answered. - Lab Data Lab Results 12/09/18 12/09/18 12/09/18 Range/Units 07:15 07:15 07:15 Heterophile Antibody Negative (Negative) Influenza Type A RNA Not Detected (Not Detectd) Influenza Type B (PCR) Not Detected (Not Detectd) Group A Strep Rapid Negative (Negative) Disposition Clinical Impression: Nausea & vomiting, Tonsillitis Disposition: HOME SELF-CARE Condition: Good Instructions (If sedation given, give patient instructions): Tonsillitis (ED) Additional Instructions: Patient advised follow-up with your primary care doctor. Take medication as prescribed. Return to the emergency department if any alarming signs or symptoms occur. Prescriptions: methylPREDNISolone Dose Pack [Medrol Dose Pack] 4 mg PO DIRECTED #21 package Azithromycin [Zithromax Z-pack] 250 mg PO DIRECTED #6 tab Is patient prescribed a controlled substance at d/c from ED?: No Referrals: Miguel Coy MD [Primary Care Provider] - 1-2 days Dustin Alvarado MD [STAFF PHYSICIAN] - 1-2 days Time of Disposition: 08:37
[2018-12-09] MEDS ORDERED: methylPREDNISolone SOD SUCCI 125 MG/2 ML VIAL IV STA (08:31)
[2018-12-09] MEDS ORDERED: AZITHROMYCIN 500 MG TAB PO STA (08:32)
[2018-12-09 09:00] VITALS: BP 119/65; PULSE 110; RESP 17; TEMP 99.1
== END 2018-12-09 09:00 | disposition home or self-care (01) ==
LOC: EC 06:50
DX: J03.90 Acute tonsillitis, unspecified (principal); R11.2 Nausea with vomiting, unspecified; Z79.3 Long term (current) use of hormonal contraceptives; Z79.899 Other long term (current) drug therapy; Z88.1 Allergy status to other antibiotic agents; Z91.012 Allergy to eggs; Z91.018 Allergy to other foods; Z88.2 Allergy status to sulfonamides
CPT/HCPCS: 36415; 86308; 87081; 87430; 87502; 99284; 96374; 96375 ×2; 96361; J2930; J2405; J1885

== ENCOUNTER 2018-12-27 08:29 | Day surgery (SDC) | payer MEDICAID ==
[2018-12-20 15:26] VITALS: BMI 18.8
--- NOTE | 2018-12-26 23:45 | HP ---
HISTORY AND PHYSICAL CHIEF COMPLAINT: Recurrent tonsillitis. HISTORY OF PRESENT ILLNESS: The patient is a pleasant 23-year-old female who was recently seen in my office for evaluation of recurrent episodes of tonsillitis for many years. The patient has been on numerous oral antibiotics including Zithromax, Augmentin, and steroids. During these episodes, she apparently becomes quite toxic and runs high fevers. At the time that she was seen in my office, clinical examination of the oropharynx revealed 4+ tonsillar hypertrophy, very prominent tonsillar crypts filled with white cheesy debris. It was recommended that the patient undergo a tonsillectomy under general anesthesia. PAST MEDICAL HISTORY: Past medical history reveals she has: ALLERGIES: TO CECLOR, SULFA, AND CLINDAMYCIN. She is however able to tolerate amoxicillin and Augmentin. PREVIOUS SURGERIES: Include kidney stone removal, and colonoscopy. CURRENT MEDICATIONS: Include Juleber, metoprolol, albuterol, and trazodone. REVIEW OF SYSTEMS: Review of systems reveals that the cardiovascular system is positive for hypertension and cardiac arrhythmia. The respiratory system is positive for asthma. The remainder of the review of systems is essentially unremarkable. PHYSICAL EXAMINATION: The patient is a very pleasant 23-year-old female who was alert and cooperative. HEENT examination: Patient is normocephalic. Tympanic membranes are normal. Middle ear spaces are free of any fluid or infection. Pupils equal, round, reactive to light and accommodation. Extraocular movements are within normal limits. Intranasal examination reveals moderate septal deviation with compensatory hypertrophy of the inferior turbinates and a moderate amount of mucus on the mucous membranes draining down the posterior pharynx. Examination of oropharynx reveals 4+ cryptic tonsils filled with white cheesy debris. Cranial nerves 2 through 12 and the remainder of the head and neck exam are within normal limits. Chest/cardiovascular: Both lung ballesteros are clear to percussion and auscultation. The patient is in regular sinus rhythm. S1 and S2 are present without evidence of any murmurs, S3s or S4. Peripheral pulses are bilaterally symmetrical within normal limits. ABDOMEN: There is no evidence any masses, megaly or tenderness. ABDOMEN: Soft. SKIN is unremarkable. Musculoskeletal and neurological within normal limits. Pelvic/rectal exam: Pelvic/rectal exam is deferred at this time because the patient has this done on a regular basis at her family physician's office. The remainder of physical exam is unremarkable. IMPRESSION: Chronic tonsillitis. PLAN: The patient is scheduled undergo a tonsillectomy under general anesthesia in a.m. Attention RNs in the pre-surgical area: I have ordered for this patient to receive 1000 mg of Ofirmev and also 2 million units of aqueous penicillin G IV, both to be given once an intravenous line has been established. If the pharmacy department sends a different pre-surgical prophylactic antibiotic to the pre-surgical area for this patient, please cancel that order and return the medication to the pharmacy department. Also please make sure that the patient's account is credited appropriately. I have discussed the risks, benefits and alternative therapies for the above-mentioned procedure and for both sedation/analgesia as well as necessary blood product administration, if indicated, as they pertain to this patient. The patient has indicated his or her understanding and acceptance of the risks and procedures discussed. TAMI / VIRGILIO: [id number] /
[~2018-12-27 08:29] MED LIST: DEXAMETHASONE SOD PHOSPHATE 10 MG/ML 1 ML VIAL IV ONE; HYDROmorphone PCA 10 MG/50 ML BAG IV PRN; LACTATED RINGERS 1,000 ML IV SCH; LIDOCAINE 1% 20 ML VIAL (10MG/ML) FOR IV START INTRADERMA PRN; MIDAZOLAM 2 MG/2 ML VIAL IV PRN; NALOXONE 0.4 MG/ML 1 ML VIAL IV PRN; ONDANSETRON 4 MG/2 ML VIAL IVP ONE; Pre Op ABX Message 1 EACH MISC MISCELLANE ONE; fentaNYL (PF) 50 MCG/ML 2 ML AMP IV PRN
[2018-12-27] MEDS: LACTATED RINGERS 1,000 ML IV SCH ×2 (09:04→15:00)
[2018-12-27] MEDS ORDERED: PENICILLIN G POTASSIUM 2,000,000 UNIT in DEXTROSE 5% IN WATER 100 ML IVPB ONE ×2 (09:45)
[2018-12-27] MEDS ORDERED: ACETAMINOPHEN IV (For NPO) 1,000 MG in EMPTY BAG 1 BAG IVPB ONE (09:45)
[2018-12-27] MEDS ORDERED: DEXAMETHASONE SOD PHOS (MDV) 100 MG/10 ML VIAL ONE (10:12)
[2018-12-27] MEDS ORDERED: LIDOCAINE 1% INJ 10MG/ML (20 ML MDV) ONE (10:12)
[2018-12-27] MEDS ORDERED: fentaNYL (PF) 50 MCG/ML 2 ML AMP ONE (10:12)
[2018-12-27] MEDS ORDERED: MIDAZOLAM 2 MG/2 ML VIAL ONE (10:12)
[2018-12-27] MEDS ORDERED: SUCCINYLCHOLINE CHLORIDE 100 MG/5 ML SYR IV ONE (10:12)
[2018-12-27] MEDS ORDERED: PROPOFOL 10 MG/ML 20 ML VIAL IV ONE (10:12)
[2018-12-27] MEDS ORDERED: BUPIVACAINE (PF) 0.5% 30 ML VIAL SQ ONE ×2 (10:41)
[2018-12-27] MEDS ORDERED: LACTATED RINGERS 1,000 ML IV ONE (10:57)
[2018-12-27] MEDS ORDERED: ONDANSETRON 4 MG/2 ML VIAL IVP PRN (11:15)
[2018-12-27] MEDS ORDERED: diphenhydrAMINE 50 MG/ML 1 ML VIAL IVP ONE (11:40)
[2018-12-27 11:58] VITALS: TEMP 98.3
[2018-12-27] MEDS ORDERED: METOPROLOL TARTRATE 5 MG/5 ML VIAL IVP ONE (13:42)
[2018-12-27] MEDS ORDERED: ACETAMINOPHEN IV (For NPO) 1,000 MG/100 ML VIAL IVPB ONE (15:30)
[2018-12-27] MEDS ORDERED: ACETAMINOPHEN IV (For NPO) 1,000 MG in EMPTY BAG 1 BAG IVPB SCH (16:00)
[2018-12-27 16:16] VITALS: BP 146/82; PULSE 106; RESP 20
--- NOTE | 2018-12-27 22:12 | OP ---
OPERATIVE REPORT DATE OF SERVICE: 12/27/2018 PREOPERATIVE DIAGNOSIS: Chronic tonsillitis. POSTOPERATIVE DIAGNOSIS: Chronic tonsillitis. ANESTHESIA: General. OPERATIVE PROCEDURE: Tonsillectomy. SURGEON: Dr. Alvarado. COMPLICATIONS: None. ESTIMATED BLOOD LOSS: Less than 25 mL. OPERATIVE PROCEDURE: The patient was placed on the Operating Table in the supine position, after uneventful induction and endotracheal intubation, satisfactory general anesthesia was obtained. Next, the #3 Yamilet-Milo mouth gag was introduced into the oropharynx, expanded and suspended from a Schuler Stand. Following this, both peritonsillar areas were injected with the tonsillar forceps and pulled medially. The sickle knife was used to make an incision 4 mm lateral to the anterior pillar, beginning at the superior pole and working down to the inferior pole with a similar incision being carried out parallel to the posterior pillar. The angle scissors and the serrated Jeff dissector were used to dissect the tonsil away from the tonsillar fossa. The tonsil itself was excised en toto using the tonsillar snare. Hemostasis was obtained using suction cautery. A sponge was placed in the empty tonsillar fossa. Attention was then directed to the left tonsil where the same procedure was carried out, with the left tonsil being grasped with the tonsillar forceps and pulled medially. The sickle knife was used to make an incision 4 mm lateral to the anterior pillar beginning at the superior pole and working down to the inferior pole with a similar incision being carried out parallel to the posterior pillar. Once again, the angle scissors and the serrated Jeff dissector were used to dissect the tonsil away from the tonsillar fossa and the tonsil itself was excised en toto using the tonsillar snare. Hemostasis was obtained using suction cautery. A sponge was placed in the empty tonsillar fossa. The mouth gag was relaxed for a period of approximately seven minutes and upon re-expanding and removing all sponges, no evidence of any active bleeding was noted. At this point, the procedure was terminated. There were no intraoperative complications. The patient tolerated the procedure well and was returned to the Recovery Room in satisfactory condition. MMODL / IJN: [id number] /
== END 2018-12-27 14:12 | disposition home or self-care (01) ==
LOC: OR 08:29
PROVIDERS: ATTEND Otolaryngology
DX: J35.01 Chronic tonsillitis (principal); I10 Essential (primary) hypertension; R00.0 Tachycardia, unspecified; J45.909 Unspecified asthma, uncomplicated; K21.9 Gastro-esophageal reflux disease without esophagitis; Z87.442 Personal history of urinary calculi; Z79.899 Other long term (current) drug therapy; Z79.3 Long term (current) use of hormonal contraceptives; Z88.1 Allergy status to other antibiotic agents; Z88.2 Allergy status to sulfonamides
CPT/HCPCS: 42826; 88304; 81025; J2250; J1200; J1100 ×2; J2405; J2001; J3010; J0131; J0330; J2704; J2540

== ENCOUNTER 2019-01-04 16:29 | Emergency (ER) | payer MEDICAID ==
[2019-01-04] MEDS ORDERED: SODIUM CHLORIDE 0.9% 2,000 ML IV ONE (16:56)
[2019-01-04] MEDS ORDERED: ONDANSETRON 4 MG/2 ML VIAL IVP STA (16:56)
[2019-01-04] MEDS ORDERED: MORPHINE SULFATE 4 MG/ML SYRINGE IVP STA (17:19)
--- NOTE | 2019-01-04 17:49 | ED ---
Nausea/Vomiting/Diarrhea HPI - General Chief complaint: Nausea/Vomiting/Diarrhea Stated complaint: Dehydration Time Seen by Provider: 01/04/19 16:55 Source: patient, RN notes reviewed Mode of arrival: ambulatory Limitations: no limitations - History of Present Illness Initial comments: 23-year-old female presents emergency Department chief complaint of nausea vomiting dehydration. Patient states that she had a tonsillectomy by Dr. Alvarado December 27. Patient states that she's had persistent pain and nausea and vomiting. She states that she cannot keep anything down. Patient was sent with [facility] outpatient services by Dr. Alvarado though she was sent home with no treatment. Patient was then sent emergency department for IV fluids. Patient states she is currently 6 taking Percocet just finished amoxicillin. Patient has no complaint of abdominal pain. Only complaint is throat pain. Patient was evaluated by Dr. Alvarado today. - Related Data Home Medications Medication Instructions Recorded Confirmed Juleber 0.15/30mg 1 tab PO 1800 12/09/18 12/20/18 Metoprolol Tartrate [Lopressor] 25 mg PO BID 12/09/18 12/27/18 traZODone HCL 12.5 mg PO HS 12/09/18 12/27/18 Albuterol Sulfate [Albuterol 2 puff PO Q4-6H PRN 12/20/18 12/20/18 Sulfate Hfa] Amoxicillin/Potassium Clav 1 tab PO Q12HR 12/20/18 12/20/18 [Augmentin 875-125 Tablet] Previous Rx's Medication Instructions Recorded Amoxicillin 500 mg PO TID 7 Days #21 ml NS 12/26/18 oxyCODONE HCL/ACETAMINOPHEN 1 tab PO Q4HR PRN 7 Days #42 tab 12/26/18 [Percocet 7.5-325 mg] Allergies Allergy/AdvReac Type Severity Reaction Status Date / Time clindamycin Allergy Rash/Hives Verified 01/04/19 16:49 egg Allergy Swelling Verified 01/04/19 16:49 blueberry AdvReac Itching Verified 01/04/19 16:49 cefaclor [From Ceclor] AdvReac Rash/Hives Verified 01/04/19 16:49 onion AdvReac Rash/Hives Verified 01/04/19 16:49 Sulfa (Sulfonamide AdvReac Swelling Verified 01/04/19 16:49 Antibiotics) Review of Systems ROS Statement: Those systems with pertinent positive or pertinent negative responses have been documented in the HPI. ROS Other: All systems not noted in ROS Statement are negative. Past Medical History Past Medical History: Asthma, Chest Pain / Angina, GERD/Reflux, Hypertension Additional Past Medical History / Comment(s): IBS, raynauds, migraines, heart murmer as child, "fast heart rate"-states having a cardiac echo in December-(Dr Alvarado aware per pt)- pt states saw Dr KATRIN [place] who started her on metoprolol, kidney stones History of Any Multi-Drug Resistant Organisms: None Reported Past Surgical History: Tonsillectomy Additional Past Surgical History / Comment(s): colonoscopy, cystoscopy for kidney stones, oral surgery Past Anesthesia/Blood Transfusion Reactions: Motion Sickness Past Psychological History: No Psychological Hx Reported Smoking Status: Never smoker Past Alcohol Use History: None Reported Past Drug Use History: None Reported - Past Family History Mother Family Medical History: Cancer Additional Family Medical History / Comment(s): . Sister(s) Additional Family Medical History / Comment(s): Patient has 2 sisters and 1 brother with no major medical problems. Patient does not have any children. General Exam Limitations: no limitations General appearance: alert, in no apparent distress Head exam: Present: atraumatic, normocephalic, normal inspection Eye exam: Present: normal appearance, PERRL, EOMI. Absent: scleral icterus, conjunctival injection, periorbital swelling ENT exam: Present: mucous membranes moist, TM's normal bilaterally. Absent: normal oropharynx (Edematous posterior pharynx with white patches noted, swal lowing secretions) Neck exam: Present: normal inspection, full ROM. Absent: tenderness, meningismus, lymphadenopathy Respiratory exam: Present: normal lung sounds bilaterally. Absent: respiratory distress, wheezes, rales, rhonchi, stridor Cardiovascular Exam: Present: normal rhythm, tachycardia, normal heart sounds. Absent: systolic murmur, diastolic murmur, rubs, gallop, clicks GI/Abdominal exam: Present: soft, normal bowel sounds. Absent: distended, tenderness, guarding, rebound, rigid Course Vital Signs 01/04/19 01/04/19 16:45 17:59 Temperature 99.3 F Pulse Rate 126 H 128 H Respiratory 20 21 Rate Blood Pressure 145/89 139/95 O2 Sat by Pulse 99 99 Oximetry Medical Decision Making - Medical Decision Making 23-year-old female presented from for Dehydration sent in by ENT. Patient was well hydrated, given pain meds and antiemetics. Patient states she feels impr joe patient will be discharged. - Lab Data Result diagrams: 01/04/19 17:50 01/04/19 17:50 Lab Results 01/04/19 01/04/19 Range/Units 17:50 17:50 WBC 6.3 (3.8-10.6) k/uL RBC 3.91 (3.80-5.40) m/uL Hgb 11.1 L (11.4-16.0) gm/dL Hct 32.5 L (34.0-46.0) % MCV 83.0 (80.0-100.0) fL MCH 28.4 (25.0-35.0) pg MCHC 34.2 (31.0-37.0) g/dL RDW 14.1 (11.5-15.5) % Plt Count 272 (150-450) k/uL Neutrophils % 53 % Lymphocytes % 38 % Monocytes % 6 % Eosinophils % 1 % Basophils % 0 % Neutrophils # 3.3 (1.3-7.7) k/uL Lymphocytes # 2.4 (1.0-4.8) k/uL Monocytes # 0.4 (0-1.0) k/uL Eosinophils # 0.0 (0-0.7) k/uL Basophils # 0.0 (0-0.2) k/uL Sodium 140 (137-145) mmol/L Potassium 4.3 (3.5-5.1) mmol/L Chloride 103 (98-107) mmol/L Carbon Dioxide 27 (22-30) mmol/L Anion Gap 10 mmol/L BUN 10 (7-17) mg/dL Creatinine 0.58 (0.52-1.04) mg/dL Est GFR (CKD-EPI)AfAm >90 (>60 ml/min/1.73 sqM) Est GFR (CKD-EPI)NonAf >90 (>60 ml/min/1.73 sqM) Glucose 93 (74-99) mg/dL Calcium 9.4 (8.4-10.2) mg/dL Disposition Clinical Impression: Dehydration, Nausea & vomiting, S/P tonsillectomy Disposition: HOME SELF-CARE Condition: Stable Instructions (If sedation given, give patient instructions): Dehydration (ED) Additional Instructions: Please return to the Emergency Department if symptoms worsen or any other concerns. Is patient prescribed a controlled substance at d/c from ED?: No Referrals: Miguel Coy MD [Primary Care Provider] - 1-2 days
[2019-01-04 18:10] LABS: Basophils % (A) 0 %; Eosinophils % (A) 1 %; HCT 32.5 % (34.0-46.0); HGB 11.1 gm/dL (11.4-16.0); Lymphocytes # (A) 2.4 k/uL (1.0-4.8); Lymphocytes % (A) 38 %; MCH 28.4 pg (25.0-35.0); MCHC 34.2 g/dL (31.0-37.0); Mean Platelet Volume 6.9; Monocytes # (A) 0.4 k/uL (0-1.0); Monocytes % (A) 6 %; Neutrophils # (A) 3.3 k/uL (1.3-7.7); Neutrophils % (A) 53 %; Platelet Count 272 k/uL (150-450); RBC 3.91 m/uL (3.80-5.40); RDW 14.1 % (11.5-15.5); WBC 6.3 k/uL (3.8-10.6)
[2019-01-04 18:23] LABS: African American GFR (CKD) >90 (>60 ml/min/1.73 sqM); Anion Gap 10 mmol/L; Blood Urea Nitrogen 10 mg/dL (7-17); Calcium 9.4 mg/dL (8.4-10.2); Carbon Dioxide 27 mmol/L (22-30); Chloride 103 mmol/L (98-107); Glucose 93 mg/dL (74-99); Potassium 4.3 mmol/L (3.5-5.1); Sodium 140 mmol/L (137-145)
[2019-01-04 20:28] VITALS: BP 115/72; PULSE 105; RESP 17; TEMP 98.5
== END 2019-01-04 20:28 | disposition home or self-care (01) ==
LOC: EC 16:29
DX: J95.89 Other postprocedural complications and disorders of respiratory system, not elsewhere classified (principal); E86.0 Dehydration; R11.2 Nausea with vomiting, unspecified; R07.0 Pain in throat; J45.909 Unspecified asthma, uncomplicated; I10 Essential (primary) hypertension; Z87.442 Personal history of urinary calculi; Z98.890 Other specified postprocedural states; Z79.3 Long term (current) use of hormonal contraceptives; Z79.899 Other long term (current) drug therapy; Z88.1 Allergy status to other antibiotic agents; Z88.2 Allergy status to sulfonamides; Z91.012 Allergy to eggs; Z91.018 Allergy to other foods
CPT/HCPCS: 36415; 80048; 85025; 99284; 96374; 96375; 96361 ×3; J2270; J2405

== ENCOUNTER → 2019-01-05 | Outpatient (CLI) | payer MEDICAID ==
--- NOTE | 2019-01-05 13:01 | ECHOF ---
Referral Reason:R00.0 Tachycardia MEASUREMENTS -------- HEIGHT: 156.2 cm WEIGHT: 45.8 kg BP: 126/76 RVIDd: 2.8 cm (< 3.3) IVSd: 0.9 cm (0.6 - 1.1) LVIDd: 4.2 cm (3.9 - 5.3) LVPWd: 0.8 cm (0.6 - 1.1) IVSs: 1.2 cm LVIDs: 2.7 cm LVPWs: 1.2 cm LA Diam: 2.6 cm (2.7 - 3.8) LAESV Index (A-L): 24.33 ml/m Ao Diam: 2.6 cm (2.0 - 3.7) AV Cusp: 1.8 cm (1.5 - 2.6) MV EXCURSION: 13.601 mm (> 18.000) MV EF SLOPE: 117 mm/s (70 - 150) EPSS: 0.5 cm MV E Rui: 1.17 m/s MV DecT: 137 ms MV A Rui: 0.96 m/s MV E/A Ratio: 1.21 RAP: 5.00 mmHg RVSP: 23.14 mmHg FINDINGS -------- Sinus rhythm. This was a technically good study. The left ventricular size is normal. Left ventricular wall thickness is normal. Overall left vent ricular systolic function is normal with, an EF between 60 - 65 %. The right ventricle is normal in size. Normal LA size by volume 22+/-6 ml/m2. The right atrium is normal in size. Interatrial and interventricular septum intact. The aortic valve is trileaflet and appears structurally normal. The mitral valve is normal. Trace tricuspid regurgitation present. Right ventricular systolic pressure is normal at < 35 mmHg. Trace/mild (physiologic) pulmonic regurgitation. The aortic root size is normal. Normal inferior vena cava with normal inspiratory collapse consistent with estimated right atrial pre ssure of 5 mmHg. There is no pericardial effusion. CONCLUSIONS -------- 1. Sinus rhythm. 2. This was a technically good study. 3. The left ventricular size is normal. 4. Left ventricular wall thickness is normal. 5. Overall left ventricular systolic function is normal with, an EF between 60 - 65 %. 6. The right ventricle is normal in size. 7. Normal LA size by volume 22+/-6 ml/m2. 8. The right atrium is normal in size. 9. Interatrial and interventricular septum intact. 10. The aortic valve is trileaflet and appears structurally normal. 11. The mitral valve is normal. 12. Trace tricuspid regurgitation present. 13. Right ventricular systolic pressure is normal at < 35 mmHg. 14. Trace/mild (physiologic) pulmonic regurgitation. 15. The aortic root size is normal. 16. Normal inferior vena cava with normal inspiratory collapse consistent with estimated right atrial pressure of 5 mmHg. 17. There is no pericardial effusion. BRAZING MACHINE OPERATOR HELPER: Lalita Zayas RDCS
--- NOTE | 2019-01-10 10:45 | P.PN ---
Progress Note - Text Progress Note Date: 01/10/19 REPORT OF HOLTER MONITOR: Baseline EKG showed sinus rhythm. Patient remained in sinus rhythm throughout the recording with an average heart rate of 88. The minimum is 63 and a max was 133. Patient okay. She APCs and occasional PVCs. Patient complained of palpitation on 3 occasions seem to be correlating with PVCs. However, there were occasional PVCs from which she was asymptomatic. APCs are not associated with symptoms. Final impression: #1. Sinus rhythm. #2 occasional APCs, asymptomatic #3 occasional PVCs, with intermittent correlation with symptoms of palpitation.
--- NOTE | 2019-01-13 16:49 | HM ---
REPORT OF HOLTER MONITOR: Baseline EKG showed sinus rhythm. Patient remained in sinus rhythm throughout the recording with an average heart rate of 88. The minimum is 63 and a max was 133. Patient okay. She APCs and occasional PVCs. Patient complained of palpitation on 3 occasions seem to be correlating with PVCs. However, there were occasional PVCs from which she was asymptomatic. APCs are not associated with symptoms. Final impression: #1. Sinus rhythm. #2 occasional APCs, asymptomatic #3 occasional PVCs, with intermittent correlation with symptoms of palpitation. OLESYA
== END | disposition home or self-care (01) ==
LOC: RADECHMAIN 11:17
PROVIDERS: ATTEND Internal Medicine Interventional Cardiology
DX: R00.0 Tachycardia, unspecified (principal); J45.40 Moderate persistent asthma, uncomplicated; Z88.2 Allergy status to sulfonamides; Z88.8 Allergy status to other drugs, medicaments and biological substances
CPT/HCPCS: 93225; 93226; 93306

== ENCOUNTER 2019-05-05 08:31 | Emergency (ER) | payer MEDICAID, OTHER ==
--- NOTE | 2019-05-05 09:05 | ED ---
General Adult HPI - General Chief complaint: Fall Stated complaint: Fall, Should & Arm pain Time Seen by Provider: 05/05/19 08:43 Source: patient, RN notes reviewed, old records reviewed Mode of arrival: ambulatory Limitations: no limitations - History of Present Illness Initial comments: Patient is a 24-year-old female, she presents today for concerns for slip and fall yesterday and water. Patient reports that she has pain to her left wrist and left shoulder. Patient states that she was attempting to go to work today but they felt that she was liability she is unable to move her hand or wrist since they sent her here. Patient states that she is right-handed. She denies any other complaints. - Related Data Home Medications Medication Instructions Recorded Confirmed Juleber 0.15/30mg 1 tab PO 1800 12/09/18 12/20/18 Metoprolol Tartrate [Lopressor] 25 mg PO BID 12/09/18 12/27/18 traZODone HCL 12.5 mg PO HS 12/09/18 12/27/18 Albuterol Sulfate [Albuterol 2 puff PO Q4-6H PRN 12/20/18 12/20/18 Sulfate Hfa] Amoxicillin/Potassium Clav 1 tab PO Q12HR 12/20/18 12/20/18 [Augmentin 875-125 Tablet] Previous Rx's Medication Instructions Recorded Amoxicillin 500 mg PO TID 7 Days #21 ml NS 12/26/18 oxyCODONE HCL/ACETAMINOPHEN 1 tab PO Q4HR PRN 7 Days #42 tab 12/26/18 [Percocet 7.5-325 mg] Ibuprofen 400 mg PO TID #20 tablet 05/05/19 Allergies Allergy/AdvReac Type Severity Reaction Status Date / Time clindamycin Allergy Rash/Hives Verified 05/05/19 08:40 egg Allergy Swelling Verified 05/05/19 08:40 blueberry AdvReac Itching Verified 05/05/19 08:40 cefaclor [From Ceclor] AdvReac Rash/Hives Verified 05/05/19 08:40 onion AdvReac Rash/Hives Verified 05/05/19 08:40 Sulfa (Sulfonamide AdvReac Swelling Verified 05/05/19 08:40 Antibiotics) Review of Systems ROS Statement: Those systems with pertinent positive or pertinent negative responses have been documented in the HPI. ROS Other: All systems not noted in ROS Statement are negative. Past Medical History Past Medical History: Asthma, Chest Pain / Angina, GERD/Reflux, Hypertension Additional Past Medical History / Comment(s): IBS, raynauds, migraines, heart murmer as child, "fast heart rate"-states having a cardiac echo in December-(Dr Alvarado aware per pt)- pt states saw Dr KATRIN Barksdale who started her on metoprolol, kidney stones History of Any Multi-Drug Resistant Organisms: None Reported Past Surgical History: Tonsillectomy Additional Past Surgical History / Comment(s): colonoscopy, cystoscopy for kidney stones, oral surgery Past Anesthesia/Blood Transfusion Reactions: Motion Sickness Past Psychological History: No Psychological Hx Reported Smoking Status: Never smoker Past Alcohol Use History: None Reported Past Drug Use History: None Reported - Past Family History Mother Family Medical History: Cancer Additional Family Medical History / Comment(s): . Sister(s) Additional Family Medical History / Comment(s): Patient has 2 sisters and 1 brother with no major medical problems. Patient does not have any children. General Exam - General Exam Comments Initial Comments: 24-year-old female. Alert and oriented 3. Patient appears in no distress. Limitations: no limitations General appearance: alert, in no apparent distress Head exam: Present: atraumatic, normocephalic, normal inspection Eye exam: Present: normal appearance, PERRL, EOMI. Absent: scleral icterus, conjunctival injection, periorbital swelling ENT exam: Present: normal exam, mucous membranes moist Neck exam: Present: normal inspection. Absent: tenderness, meningismus, lymphadenopathy Respiratory exam: Present: normal lung sounds bilaterally. Absent: respiratory distress, wheezes, rales, rhonchi, stridor Cardiovascular Exam: Present: regular rate, normal rhythm, normal heart sounds. Absent: systolic murmur, diastolic murmur, rubs, gallop, clicks GI/Abdominal exam: Present: soft, normal bowel sounds. Absent: distended, tenderness, guarding, rebound, rigid Extremities exam: Present: normal inspection, full ROM, normal capillary refill. Absent: tenderness, pedal edema, joint swelling, calf tenderness Left Shoulder Exam: Present: normal inspection, full ROM Upper Arm exam: Present: normal inspection, full ROM Elbow exam: Present: normal inspection, full ROM Forearm Wrist exam: Present: normal inspection, swelling, tenderness over anatomical snuff box. Absent: full ROM Neuro motor exam: Present: wrist extension intact, thumb opposition intact, thumb IP flexion intact, thumb adduction intact, fingers 2-5 abduction intact Vascular: Present: normal capillary refill Back exam: Present: normal inspection, full ROM Neurological exam: Present: alert, oriented X3, CN II-XII intact Psychiatric exam: Present: normal affect, normal mood Skin exam: Present: warm, dry, intact, normal color. Absent: rash Course Vital Signs 05/05/19 05/05/19 08:36 09:43 Temperature 98.1 F 98.3 F Pulse Rate 113 H 114 H Respiratory 20 19 Rate Blood Pressure 148/89 160/91 O2 Sat by Pulse 98 100 Oximetry Procedures - Orthopedic Splinting/Casting Injury #1 Side: left Upper Extremity Injury Location: wrist Upper Extremity Immobilizer: thumb spica, Gil wrap, synthetic pre-padded splint Medical Decision Making - Medical Decision Making Patient is a 24 year old female with left shoulder and left wrist pain after slip and fall yesterday. She has wrist tenderness, and left snuffbox tenderness. Patient placed in thumb spica splint. patient advised to follow up with ortho. Patient is neurovascularly intact. - Radiology Data Radiology results: report reviewed Normal Left shoulder xray, normal left wrist xray. Disposition Clinical Impression: Wrist pain, Shoulder sprain Disposition: HOME SELF-CARE Condition: Good Instructions (If sedation given, give patient instructions): Wrist Injury (ED) Additional Instructions: advsied to a follow-up with orthopedic. Return to the emergency department if any alarming signs or symptoms occur. Motrin Tylenol for pain. Prescriptions: Ibuprofen 400 mg PO TID #20 tablet Is patient prescribed a controlled substance at d/c from ED?: No Referrals: Miguel Coy MD [Primary Care Provider] - 1-2 days Tashi Nguyễn MD [STAFF PHYSICIAN] - 1-2 days Time of Disposition: 10:20
--- NOTE | 2019-05-05 09:17 | XR ---
EXAMINATION TYPE: XR wrist complete LT DATE OF EXAM: 05/05/2019 CLINICAL HISTORY: Fall injury with pain. TECHNIQUE: Frontal, lateral, scaphoid, and oblique images of the left wrist are obtained. COMPARISON: None FINDINGS: There is no acute fracture/dislocation evident in the left wrist. The joint spaces in the left wrist appear within normal limits. The overlying soft tissue appears unremarkable. IMPRESSION: There is no acute fracture or dislocation in the left wrist.
--- NOTE | 2019-05-05 09:17 | XR ---
EXAMINATION TYPE: XR shoulder complete LT DATE OF EXAM: 05/05/2019 CLINICAL HISTORY: Fall injury with pain. TECHNIQUE: Three views of the left shoulder are obtained. COMPARISON: None. FINDINGS: There is no acute fracture/dislocation evident in the left shoulder. The acromioclavicula r and glenohumeral joint spaces appear within normal limits. The visualized ribs are intact and unre markable. Overlying bra strap is present. IMPRESSION: There is no acute fracture or dislocation in the left shoulder.
[2019-05-05 09:44] VITALS: BP 160/91; PULSE 114; RESP 19; TEMP 98.3
== END 2019-05-05 10:35 | disposition home or self-care (01) ==
LOC: EC 08:31
DX: S43.402A Unspecified sprain of left shoulder joint, initial encounter (principal); M25.532 Pain in left wrist; I10 Essential (primary) hypertension; Z79.899 Other long term (current) drug therapy; Z88.1 Allergy status to other antibiotic agents; Z88.2 Allergy status to sulfonamides; Z91.018 Allergy to other foods; Z91.012 Allergy to eggs; W01.0XXA Fall on same level from slipping, tripping and stumbling without subsequent striking against object, initial encounter
CPT/HCPCS: 99284

== ENCOUNTER 2019-05-08 15:38 | Emergency (ER) | payer MEDICAID ==
[2019-05-08 15:44] VITALS: RESP 18
--- NOTE | 2019-05-08 16:50 | XR ---
EXAMINATION TYPE: XR hand complete LT DATE OF EXAM: 05/08/2019 COMPARISON: None HISTORY: Pain fourth and fifth metacarpal TECHNIQUE: Three-view left hand FINDINGS: No acute fractures are evident. Joint spaces are preserved. Alignment is normal. Soft tissu es appear normal. IMPRESSION: 1. Normal three-view left hand.
--- NOTE | 2019-05-08 17:03 | ED ---
General Adult HPI - General Chief complaint: Recheck/Abnormal Lab/Rx Stated complaint: Hand swelling Time Seen by Provider: 05/08/19 15:57 Source: patient, RN notes reviewed Mode of arrival: ambulatory Limitations: no limitations - History of Present Illness Initial comments: 24-year-old female presents to the emergency department for left hand swelling. Patient states that she fell on Thursday on a slippery floor here at the hospital. States she fell right on her left wrist and then shoulder. States her shoulder feels better but she is having left hand swelling and continues to have left wrist pain. States that when she takes off the splint the hand swelling decreases. States she has no hand sling at this time. States she has tingling in the left hand but full sensation. Patient has not yet contacted orthopedics. Patient has no other complaints at this time including shortness of breath, chest pain, abdominal pain, nausea or vomiting, headache, or visual changes. - Related Data Home Medications Medication Instructions Recorded Confirmed Juleber 0.15/30mg 1 tab PO 1800 12/09/18 12/20/18 Metoprolol Tartrate [Lopressor] 25 mg PO BID 12/09/18 12/27/18 traZODone HCL 12.5 mg PO HS 12/09/18 12/27/18 Albuterol Sulfate [Albuterol 2 puff PO Q4-6H PRN 12/20/18 12/20/18 Sulfate Hfa] Amoxicillin/Potassium Clav 1 tab PO Q12HR 12/20/18 12/20/18 [Augmentin 875-125 Tablet] Previous Rx's Medication Instructions Recorded Amoxicillin 500 mg PO TID 7 Days #21 ml NS 12/26/18 oxyCODONE HCL/ACETAMINOPHEN 1 tab PO Q4HR PRN 7 Days #42 tab 12/26/18 [Percocet 7.5-325 mg] Ibuprofen 400 mg PO TID #20 tablet 05/05/19 Allergies Allergy/AdvReac Type Severity Reaction Status Date / Time clindamycin Allergy Rash/Hives Verified 05/08/19 15:44 egg Allergy Swelling Verified 05/08/19 15:44 blueberry AdvReac Itching Verified 05/08/19 15:44 cefaclor [From Ceclor] AdvReac Rash/Hives Verified 05/08/19 15:44 onion AdvReac Rash/Hives Verified 05/08/19 15:44 Sulfa (Sulfonamide AdvReac Swelling Verified 05/08/19 15:44 Antibiotics) Review of Systems ROS Statement: Those systems with pertinent positive or pertinent negative responses have been documented in the HPI. ROS Other: All systems not noted in ROS Statement are negative. Past Medical History Past Medical History: Asthma, Chest Pain / Angina, GERD/Reflux, Hypertension Additional Past Medical History / Comment(s): IBS, raynauds, migraines, heart murmer as child, "fast heart rate"-states having a cardiac echo in December-(Dr Alvarado aware per pt)- pt states saw Dr KATRIN Barksdale who started her on metoprolol, kidney stones History of Any Multi-Drug Resistant Organisms: None Reported Past Surgical History: Tonsillectomy Additional Past Surgical History / Comment(s): colonoscopy, cystoscopy for kidney stones, oral surgery Past Anesthesia/Blood Transfusion Reactions: Motion Sickness Past Psychological History: No Psychological Hx Reported Smoking Status: Never smoker Past Alcohol Use History: None Reported Past Drug Use History: None Reported - Past Family History Mother Family Medical History: Cancer Additional Family Medical History / Comment(s): . Sister(s) Additional Family Medical History / Comment(s): Patient has 2 sisters and 1 brother with no major medical problems. Patient does not have any children. General Exam Limitations: no limitations General appearance: alert, in no apparent distress Head exam: Present: atraumatic, normocephalic, normal inspection Eye exam: Present: normal appearance, PERRL, EOMI. Absent: scleral icterus, conjunctival injection, periorbital swelling ENT exam: Present: normal exam, mucous membranes moist Neck exam: Present: normal inspection, full ROM. Absent: tenderness, meningismus, lymphadenopathy Respiratory exam: Present: normal lung sounds bilaterally. Absent: respiratory distress, wheezes, rales, rhonchi, stridor Cardiovascular Exam: Present: regular rate, normal rhythm, normal heart sounds. Absent: systolic murmur, diastolic murmur, rubs, gallop, clicks Extremities exam: Present: other (Before removal of splint hand was inspected. No edema. Fingers are warm and capillary refill is less than 2 seconds. Full sensation in all fingers. Splint was removed. Skin is intact. Capillary refill continues to be less than 2 seconds, radial pulse 2+. Patient has full range of motion in all fingers however decreased range motion in the left thumb secondary to pain. She does have scaphoid tenderness. She also did have some fourth and fifth metacarpal tenderness.) Course Vital Signs 05/08/19 15:41 Temperature 98.3 F Pulse Rate 112 H Respiratory 18 Rate Blood Pressure 150/80 O2 Sat by Pulse 100 Oximetry Procedures - Orthopedic Splinting/Casting Injury #1 Side: left Upper Extremity Injury Location: wrist Upper Extremity Immobilizer: thumb spica Additional Comments: Neurovascular status intact after splint applied. Capillary refill less than 2 seconds in all digits. Medical Decision Making - Medical Decision Making Patient has reported swelling in left hand after a fall on Thursday. However no swelling of presentation to the emergency department. States it decreases after she removes splint. Patient is concerned she may have an ALLERGIC reaction to this point. I discussed it is likely because the splint was too tight. I did review x-rays from May 05. No fracture was noted in the left wrist. No fracture in the left shoulder. No swelling was noted throughout patient's stay. No erythema or evidence of infection. I did obtain if x-ray of the left hand given some pain as well as fourth and fifth metacarpal tenderness. No fractures were found. Patient does have scaphoid tenderness and pain with movement of the thumb. Therefore she was resplinted in a thumb spica after ensured good capillary refill and radial pulses 2+ as well as intact neurovascular status including sensation. Patient will follow up with orthopedics tomorrow as she has not yet contacted them and injury was 5 days ago. She will return if she has any worsening symptoms. Disposition Clinical Impression: Wrist pain Disposition: HOME SELF-CARE Condition: Good Instructions (If sedation given, give patient instructions): Wrist Injury (ED) Additional Instructions: Please follow up with orthopedics tomorrow for wrist pain and scaphoid tenderness. Take Tylenol for pain. Keep splint in place. However if you have doing or tingling be sure to loosen the wrapping. Return to the emergency department if you have any worsening symptoms. Is patient prescribed a controlled substance at d/c from ED?: No Referrals: Miguel Coy MD [Primary Care Provider] - 1-2 days Time of Disposition: 17:05
[2019-05-08 17:15] VITALS: BP 139/76; PULSE 78; TEMP 98
== END 2019-05-08 17:15 | disposition home or self-care (01) ==
LOC: EC 15:38
DX: M25.532 Pain in left wrist (principal); M79.89 Other specified soft tissue disorders; R20.2 Paresthesia of skin; I10 Essential (primary) hypertension; J45.909 Unspecified asthma, uncomplicated; Z79.899 Other long term (current) drug therapy; Z88.1 Allergy status to other antibiotic agents; Z91.012 Allergy to eggs; Z91.018 Allergy to other foods; Z88.2 Allergy status to sulfonamides
CPT/HCPCS: 29125; 99283

== ENCOUNTER → 2019-09-12 | Day surgery (SDC) | payer MEDICAID, OTHER ==
[2019-09-08 12:06] VITALS: BMI 17.8
[~2019-09-12] MED LIST changes: +ALBUTEROL NEBULIZED 2.5 MG/3 ML INHALATION STA; +DEXAMETHASONE SOD PHOS (MDV) 100 MG/10 ML VIAL IVP ONE; -DEXAMETHASONE SOD PHOSPHATE 10 MG/ML 1 ML VIAL IV ONE; -HYDROmorphone PCA 10 MG/50 ML BAG IV PRN; +IV FLUID CONTINUATION 1,000 ML IV ONE; +KETAMINE 10 MG/ML 20 ML VIAL ONE; +LACTATED RINGERS 1,000 ML IV ONE; +LEVOFLOXACIN 500MG-D5W PMX 500 MG in DEXTROSE/WATER 1 100ML.BAG IVPB STA; +LIDOCAINE 1% (10MG/ML) FOR IV START INTRADERMA PRN; -LIDOCAINE 1% 20 ML VIAL (10MG/ML) FOR IV START INTRADERMA PRN; +LIDOCAINE 1% INJ 10MG/ML (20 ML MDV) ONE; -MIDAZOLAM 2 MG/2 ML VIAL IV PRN; +MIDAZOLAM 2 MG/2 ML VIAL ONE; -NALOXONE 0.4 MG/ML 1 ML VIAL IV PRN; -ONDANSETRON 4 MG/2 ML VIAL IVP ONE; +PROMETHAZINE INJ 25 MG/ML 1 ML VIAL IVPB ONE; +PROPOFOL 10 MG/ML 20 ML VIAL IV ONE; +SCOPOLAMINE 1.5MG/72HR PATCH TRANSDERM ONE; -fentaNYL (PF) 50 MCG/ML 2 ML AMP IV PRN; +fentaNYL (PF) 50 MCG/ML 2 ML AMP ONE; +traMADol 50 MG TAB PO ONE
--- NOTE | 2019-09-12 00:27 | P.HPIHPCON ---
History of Present Illness H&P Date: 09/12/19 Ms Flores is 24 yo female with hx of right sided renal calculi. She is symptomatic from her stones. I discussed the option of ESWL. She agreed to proceed with ESWL, I discussed with her risk which includes bleeding, infection, renal hematoma, potential need for repeated treatment. I also discussed with her the risk from anesthesia. I also discussed with her potential that we might need repeated treatment to completely address her right sided stone burden. She understood all risks and agreed to proceed Consent for Procedure: I have explained the operation/procedure to the patient, including the risks, benefits, side effects, alternative therapies (including not receiving the proposed treatment or service), the likelihood of the patient achieving his/her goals, and potential recuperation problems for the procedure/sedation/analgesia, as well as any blood products, if indicated. I also explained to the patient the risks, benefits and side effects of the alternatives, as well as the risks related to not receiving the proposed procedure, care, treatment, or services. Past Medical History Past Medical History: Asthma, Chest Pain / Angina, GERD/Reflux, Hypertension Additional Past Medical History / Comment(s): IBS, raynauds, migraines, heart murmer as child, Sinus Tachycardia, kidney stones. History of Any Multi-Drug Resistant Organisms: None Reported Past Surgical History: Tonsillectomy Additional Past Surgical History / Comment(s): colonoscopy, cystoscopy for kidney stones, oral surgery, lithotripsy 07/2018 Past Anesthesia/Blood Transfusion Reactions: Previous Problems w/ Anesthesia, Motion Sickness Additional Past Anesthesia/Blood Transfusion Reaction / Comment(s): Wakes up confused-pulling at IV Past Psychological History: No Psychological Hx Reported Smoking Status: Never smoker Past Alcohol Use History: Rare Additional Past Alcohol Use History / Comment(s): . Past Drug Use History: None Reported - Past Family History Mother Family Medical History: Cancer Additional Family Medical History / Comment(s): . Sister(s) Additional Family Medical History / Comment(s): Patient has 2 sisters and 1 brother with no major medical problems. Patient does not have any children. Medications and Allergies Home Medications Medication Instructions Recorded Confirmed Type Metoprolol Tartrate [Lopressor] 50 mg PO QAM 12/09/18 09/08/19 History Albuterol Sulfate [Albuterol 2 puff PO Q4-6H PRN 12/20/18 09/08/19 History Sulfate Hfa] Acetaminophen [Tylenol Extra 1,000 mg PO DIRECTED PRN 09/08/19 09/08/19 History Strength] Control Pills 1 tab PO DAILY 09/08/19 History Ibuprofen 600 mg PO DIRECTED PRN 09/08/19 09/08/19 History Metoprolol Tartrate [Lopressor] 25 mg PO HS 09/08/19 09/08/19 History Omeprazole 20 mg PO DAILY PRN 09/08/19 09/08/19 History Allergies Allergy/AdvReac Type Severity Reaction Status Date / Time clindamycin Allergy Rash/Hives Verified 09/08/19 11:29 egg Allergy Swelling Verified 09/08/19 11:29 blueberry AdvReac Itching Verified 09/08/19 11:29 cefaclor [From Ceclor] AdvReac Rash/Hives Verified 09/08/19 11:29 onion AdvReac Rash/Hives Verified 09/08/19 11:29 Sulfa (Sulfonamide AdvReac Swelling Verified 09/08/19 11:29 Antibiotics) Surgical - Exam - General well developed, well nourished, no distress - Respiratory normal expansion, normal respiratory effort Assessment and Plan Assessment: 24 yo female with hx of right sided renal calculi -OR for right sided ESWL
[2019-09-12 07:06] VITALS: TEMP 98.4
--- NOTE | 2019-09-12 07:14 | XR ---
EXAMINATION TYPE: XR KUB DATE OF EXAM: 09/12/2019 6:19 AM CLINICAL HISTORY: Nephrolithiasis. TECHNIQUE: Single supine KUB image of the abdomen is obtained. COMPARISON: 02/19/2014. FINDINGS: One of the previously seen right renal calculi remains projecting over the lower pole measu ring 3 mm. No other definite renal calculi are seen. No suspicious calcifications in the pelvis. Osse ous structures are grossly intact. Lung bases are well aerated. No dilated large or small bowel. IMPRESSION: 3 mm right renal calculus. No other suspicious calcifications in the abdomen or pelvis.
[2019-09-12] MEDS: ONDANSETRON 4 MG/2 ML VIAL IVP ONE ×2 (07:25→08:39)
[2019-09-12] MEDS: LACTATED RINGERS 1,000 ML IV ONE (08:28)
--- NOTE | 2019-09-12 08:35 | P.OP ---
Date of Procedure: 09/12/19 Preoperative Diagnosis: right renal calculi Postoperative Diagnosis: same Procedure(s) Performed: Right ESWL Implants: none Anesthesia: other (sedation ) Surgeon: José Luis Joseph Estimated Blood Loss (ml): 0 Pathology: none sent Condition: stable Disposition: PACU Indications for Procedure: Ms Flores is 24 yo female with hx of right sided renal calculi. She is symptomatic from her stones. I discussed the option of ESWL. She agreed to proceed with ESWL, I discussed with her risk which includes bleeding, infection, renal hematoma, potential need for repeated treatment. I also discussed with her the risk from anesthesia. I also discussed with her potential that we might need repeated treatment to completely address her right sided stone burden. She understood all risks and agreed to proceed Operative Findings: 2 radioopaque stones Description of Procedure: The patient was taken to the operating room and placed on the [employer]ornier Compact Delta lithotripter in the supine position. The calculus was seen on biplanar fluoroscopy. Once the patient was properly positioned and sedated, lithotripsy was performed. The energy level was gradually increased per protocol, to an energy level of 4. A total of 1735 shocks were given at a rate of 80 shocks per minute. Fluoroscopy was utilized at a minimum to ensure proper positioning and determine the treatment status. There was excellent fragmentation of stone . The patient tolerated the procedure well was taken to the recovery room in stable condition. Instructions were given to strain the urine, and the patient will follow-up with Dr. Hodgson in one week.
[2019-09-12 11:17] VITALS: RESP 18
[2019-09-12 11:18] VITALS: BP 122/85; PULSE 84
== END | disposition home or self-care (01) ==
LOC: ORWHC2ENDO 05:38
PROVIDERS: ATTEND Urology
DX: N20.0 Calculus of kidney (principal); J45.909 Unspecified asthma, uncomplicated; K21.9 Gastro-esophageal reflux disease without esophagitis; I10 Essential (primary) hypertension; K58.9 Irritable bowel syndrome, unspecified; I73.00 Raynaud's syndrome without gangrene; G43.909 Migraine, unspecified, not intractable, without status migrainosus; Z91.012 Allergy to eggs; Z91.018 Allergy to other foods; Z88.2 Allergy status to sulfonamides; Z88.1 Allergy status to other antibiotic agents; Z86.79 Personal history of other diseases of the circulatory system; Z90.89 Acquired absence of other organs; Z98.890 Other specified postprocedural states; Z91.89 Other specified personal risk factors, not elsewhere classified; Z87.898 Personal history of other specified conditions; Z79.899 Other long term (current) drug therapy; Z79.3 Long term (current) use of hormonal contraceptives; Z87.440 Personal history of urinary (tract) infections; Z87.448 Personal history of other diseases of urinary system; Z79.1 Long term (current) use of non-steroidal anti-inflammatories (NSAID); Z80.9 Family history of malignant neoplasm, unspecified
CPT/HCPCS: 94640; 81025; 74018; 50590; J2250; J2550; J2405; J2001; J3010; J1100; J2704

== ENCOUNTER 2019-09-13 12:43 | Emergency (ER) | payer OTHER ==
[2019-09-13 12:49] VITALS: BP 146/67; PULSE 90; RESP 18; TEMP 98.3
[2019-09-13] MEDS ORDERED: diphenhydrAMINE 50 MG CAP PO STA (13:08)
[2019-09-13] MEDS ORDERED: predniSONE 50 MG TAB PO STA (13:08)
[2019-09-13] MEDS ORDERED: FAMOTIDINE 20 MG TAB PO STA (13:08)
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
== END 2019-09-13 13:52 | disposition home or self-care (01) ==
LOC: EC 12:43
DX: H57.04 Mydriasis (principal); T44.3X5A Adverse effect of other parasympatholytics [anticholinergics and antimuscarinics] and spasmolytics, initial encounter; J45.909 Unspecified asthma, uncomplicated; K21.9 Gastro-esophageal reflux disease without esophagitis; I10 Essential (primary) hypertension; Z88.1 Allergy status to other antibiotic agents; Z88.2 Allergy status to sulfonamides; Z88.7 Allergy status to serum and vaccine; Z91.012 Allergy to eggs; Z91.018 Allergy to other foods; Z79.3 Long term (current) use of hormonal contraceptives; Z79.899 Other long term (current) drug therapy
CPT/HCPCS: 99283; J7512

== ENCOUNTER 2019-09-15 14:01 | Emergency (ER) | payer OTHER ==
[2019-09-15 14:05] VITALS: RESP 18
[2019-09-15] MEDS ORDERED: hydrOXYzine HCL 25 MG TAB PO STA (14:28)
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
[2019-09-15 16:04] VITALS: BP 147/78; PULSE 78; TEMP 98.3
== END 2019-09-15 16:04 | disposition home or self-care (01) ==
LOC: EC 14:01
DX: L29.9 Pruritus, unspecified (principal); J45.909 Unspecified asthma, uncomplicated; I10 Essential (primary) hypertension; K21.9 Gastro-esophageal reflux disease without esophagitis; Z79.899 Other long term (current) drug therapy; Z88.1 Allergy status to other antibiotic agents; Z88.2 Allergy status to sulfonamides; Z91.012 Allergy to eggs; Z91.018 Allergy to other foods; Z88.7 Allergy status to serum and vaccine
CPT/HCPCS: 99283

== ENCOUNTER → 2019-09-19 | Outpatient (CLI) | payer OTHER ==
--- NOTE | 2019-09-19 10:29 | XR ---
EXAMINATION TYPE: XR KUB DATE OF EXAM: 09/19/2019 COMPARISON: 09/12/2019 HISTORY: Renal calculus. TECHNIQUE: Single supine KUB image of the abdomen is obtained. FINDINGS: The previously seen 3 mm calculus projecting over the right kidney on the prior of 0 is no longer visualized. No radiopaque calculi are seen in the abdomen or pelvis. No dilated bowel. Lung bases are well aerated. Osseous structures appear intact. IMPRESSION: The previously seen right 3 mm renal calculus is no longer visualized. No renal calculi s een.
== END | disposition home or self-care (01) ==
LOC: RADXRMAIN 10:12
PROVIDERS: ATTEND Urology
DX: N20.0 Calculus of kidney (principal)
CPT/HCPCS: 74018

== ENCOUNTER 2020-02-09 14:08 | Emergency (ER) | payer OTHER ==
[2020-02-09 14:31] VITALS: RESP 18
[2020-02-09] MEDS ORDERED: METOCLOPRAMIDE 5 MG/ML 2 ML VIAL IVP STA (14:37)
[2020-02-09] MEDS ORDERED: SODIUM CHLORIDE 0.9% 1,000 ML IV STA (14:37)
[2020-02-09] MEDS ORDERED: diphenhydrAMINE 50 MG/ML 1 ML VIAL IVP STA (14:37)
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
[2020-02-09 15:25] LABS: Basophils % (A) 0 %; Eosinophils % (A) 1 %; HCT 37.7 % (34.0-46.0); HGB 12.9 gm/dL (11.4-16.0); Lymphocytes # (A) 1.8 k/uL (1.0-4.8); Lymphocytes % (A) 20 %; MCH 28.7 pg (25.0-35.0); MCHC 34.3 g/dL (31.0-37.0); MCV 83.9 fL (80.0-100.0); Mean Platelet Volume 7.1; Monocytes # (A) 0.5 k/uL (0-1.0); Monocytes % (A) 5 %; Neutrophils # (A) 6.8 k/uL (1.3-7.7); Neutrophils % (A) 73 %; Platelet Count 262 k/uL (150-450); RBC 4.49 m/uL (3.80-5.40); RDW 13.3 % (11.5-15.5); WBC 9.4 k/uL (3.8-10.6)
[2020-02-09 15:35] LABS: Appearance,Urine Cloudy (Clear); Bacteria,Urine Rare /hpf; Bilirubin,Urine Negative (Negative); Blood,Urine Trace (Negative); Budding Yeast,Urine Many /hpf; Color,Urine Yellow; Glucose,Urine (UA) Negative (Negative); Hyaline Casts,Urine 5 /lpf (0-2); Ketones,Urine 1+ (Negative); Leukocyte Esterase,Urine Large (Negative); Mucus,Urine Few /hpf; Nitrite,Urine Negative (Negative); Protein,Urine Trace (Negative); RBC,Urine 3 /hpf (0-5); Specific Gravity,Urine 1.021 (1.001-1.035); Squamous Epithelial Cell,Urine 14 /hpf (0-4); WBC,Urine 25 /hpf (0-5)
[2020-02-09 15:37] LABS: ALT 14 U/L (4-34); AST 21 U/L (14-36); African American GFR (CKD) >90 (>60 ml/min/1.73 sqM); Albumin 4.5 g/dL (3.5-5.0); Alkaline Phosphatase 51 U/L (38-126); Anion Gap 9 mmol/L; Blood Urea Nitrogen 6 mg/dL (7-17); Calcium 9.6 mg/dL (8.4-10.2); Carbon Dioxide 24 mmol/L (22-30); Chloride 101 mmol/L (98-107); Glucose 85 mg/dL (74-99); Non-African American GFR(CKD) >90 (>60 ml/min/1.73 sqM); Sodium 134 mmol/L (137-145); Total Bilirubin 0.7 mg/dL (0.2-1.3); Total Protein 7.1 g/dL (6.3-8.2)
--- NOTE | 2020-02-09 16:25 | US ---
EXAMINATION TYPE: Ultrasound OB <= 14 week fetus DATE OF EXAM: 02/09/2020 4:02 PM COMPARISON: NONE CLINICAL HISTORY: 24-year-old female n/v abd cramping. nausea and vomiting EXAM PERFORMED: Transabdominal (TA) FINDINGS: EXAM MEASUREMENTS: GESTATIONAL AGE / DATING Physician Established: Not yet established Dates by LMP: (9 weeks/0 days) EDC: 09/13/20 Dates by First Scan: No previous this is first scan Dates by Current Scan for: (9 weeks/0 days) EDC: 09/13/20 MATERNAL ANATOMY Uterus: 8.2 x 7.6 x 7.4cm Right Ovary: 3.6 x 1.8 x 1.8cm Left Ovary: 2.4 x 1.4 x 1.5cm Post CDS / Adnexa: appears wnl Presence of free fluid: no Presence of corpus luteal cyst: yes, right ovary = 1.8 x 1.6 x 1.7cm GESTATION / SURVEY CRL: 2.2cm (9 weeks/0 days) Yolk Sac (normal less than 6mm): 0.3cm Heart Rate: 170 bpm Rhythm: Normal IUP: Viable IUP Date of LMP: 12/08/19 Beta HcG (if available): Not available at this time [employer] notes: Single viable IUP 9wks/0days with PRICILA of 09/13/20. Probable corpus luteum right ov krysten IMPRESSION: 1. Single live intrauterine with estimated gestational age of 9 weeks 0 days by LMP. Curren t ultrasound biometry is concordant. 2. A heart rate upper limits of normal at 170 BPM. Follow-up as clinically indicated. Otherwise , complete survey recommended at 18-20 weeks. 3. Right ovarian corpus luteum at 1.8 cm.
[2020-02-09 17:29] VITALS: BP 120/70; PULSE 95; TEMP 99.1
[2020-02-09 18:33] LABS: HCG,Quantitative Serum >225000.0 mIU/mL
== END 2020-02-09 17:29 | disposition home or self-care (01) ==
LOC: EC 14:08
DX: O21.8 Other vomiting complicating pregnancy (principal); R82.998 Other abnormal findings in urine; O16.1 Unspecified maternal hypertension, first trimester; O99.611 Diseases of the digestive system complicating pregnancy, first trimester; K21.9 Gastro-esophageal reflux disease without esophagitis; K58.9 Irritable bowel syndrome, unspecified; O99.511 Diseases of the respiratory system complicating pregnancy, first trimester; J45.909 Unspecified asthma, uncomplicated; Z79.51 Long term (current) use of inhaled steroids; Z79.3 Long term (current) use of hormonal contraceptives; Z79.899 Other long term (current) drug therapy; Z3A.09 9 weeks gestation of pregnancy; Z88.1 Allergy status to other antibiotic agents; Z91.012 Allergy to eggs; Z91.018 Allergy to other foods; Z88.7 Allergy status to serum and vaccine; Z88.2 Allergy status to sulfonamides
CPT/HCPCS: 96374; 96375; 96361 ×2; 99284; 36415; 80053; 85025; 81001; 84702; 87086; 76801; J1200; J2765

== ENCOUNTER 2020-03-29 21:37 | Emergency (ER) | payer OTHER ==
[2020-03-29 21:53] VITALS: RESP 18
[2020-03-29] MEDS ORDERED: ACETAMINOPHEN TAB 325 MG TAB PO STA (21:57)
[2020-03-29] MEDS ORDERED: SODIUM CHLORIDE 0.9% 1,000 ML IV ONE (21:57)
[2020-03-29] MEDS ORDERED: METOCLOPRAMIDE 5 MG/ML 2 ML VIAL IVP STA (21:58)
--- NOTE | 2020-03-29 22:37 | ED ---
Nausea/Vomiting/Diarrhea HPI - General Chief complaint: Nausea/Vomiting/Diarrhea Stated complaint: Fever,Vomiting Time Seen by Provider: 03/29/20 21:56 Source: patient Mode of arrival: ambulatory Limitations: no limitations - History of Present Illness Initial comments: This patient is a 24-year-old woman presenting to be evaluated for constellation of symptoms. She states that for the past 2 weeks she has had some small amount of clear rhinorrhea and a cough. She thought that she was having a flareup of her seasonal ALLERGIES may be a touch of her asthma. She also has been feeling hot and cold though when she would take her temperature she has not had a fever. Over today she has had nausea and vomiting. Tonight she did have a temperature just above 100 and she took Tylenol but then vomited and was not able to keep this down. Patient denies change in urination or bowel movements. No abdominal pain. No vaginal discharge or bleeding. Patient states she is approximately 16 weeks . MD complaint: nausea, vomiting -: days(s) Description of Vomiting: food contents Associated Abdominal Pain: No Consistency: constant Improves with: none Worsens with: none Associated Symptoms: cough, fever/chills - Related Data Home Medications Medication Instructions Recorded Confirmed Metoprolol Tartrate [Lopressor] 50 mg PO QAM 12/09/18 09/12/19 Albuterol Sulfate [Albuterol 2 puff PO Q4-6H PRN 12/20/18 09/12/19 Sulfate Hfa] Acetaminophen [Tylenol Extra 1,000 mg PO DIRECTED PRN 09/08/19 09/12/19 Strength] Control Pills 1 tab PO DAILY 09/08/19 09/12/19 Ibuprofen 600 mg PO DIRECTED PRN 09/08/19 09/12/19 Metoprolol Tartrate [Lopressor] 25 mg PO HS 09/08/19 09/12/19 Omeprazole 20 mg PO DAILY PRN 09/08/19 09/12/19 Previous Rx's Medication Instructions Recorded Ibuprofen 600 mg PO Q8H #30 tab 09/12/19 diphenhydrAMINE HCL [Benadryl] 25 - 50 mg PO Q6H PRN #20 tab 09/13/19 predniSONE 50 mg PO DAILY #2 tablet 09/13/19 hydrOXYzine HCL [Atarax] 25 mg PO TID PRN #15 tab 09/15/19 Metoclopramide [Reglan] 10 mg PO TID PRN #15 tab 02/09/20 Amoxicillin 500 mg PO Q8H #21 capsule 03/30/20 Allergies Allergy/AdvReac Type Severity Reaction Status Date / Time clindamycin Allergy Rash/Hives Verified 02/09/20 14:31 egg Allergy Swelling Verified 02/09/20 14:31 blueberry AdvReac Itching Verified 02/09/20 14:31 cefaclor [From Ceclor] AdvReac Rash/Hives Verified 02/09/20 14:31 Influenza Virus Vaccines AdvReac Unknown Verified 02/09/20 14:31 onion AdvReac Rash/Hives Verified 02/09/20 14:31 Sulfa (Sulfonamide AdvReac Swelling Verified 02/09/20 14:31 Antibiotics) Review of Systems ROS Statement: Those systems with pertinent positive or pertinent negative responses have been documented in the HPI. ROS Other: All systems not noted in ROS Statement are negative. Constitutional: Reports: as per HPI, fever, chills ENT: Reports: congestion. Denies: ear pain, throat pain Respiratory: Reports: cough. Denies: dyspnea, wheezes, hemoptysis Cardiovascular: Reports: as per HPI, palpitations (Patient does have history of sinus tachycardia taking metoprolol). Denies: chest pain, orthopnea, edema, syncope Gastrointestinal: Reports: nausea, vomiting. Denies: abdominal pain, diarrhea, constipation, hematemesis, melena, hematochezia Genitourinary: Denies: dysuria, frequency, hematuria, discharge, abnormal menses Skin: Denies: rash Neurological: Denies: headache, weakness, numbness Past Medical History Past Medical History: Asthma, Chest Pain / Angina, GERD/Reflux, Hypertension Additional Past Medical History / Comment(s): IBS, raynauds, migraines, heart murmer as child, Sinus Tachycardia, kidney stones. History of Any Multi-Drug Resistant Organisms: None Reported Past Surgical History: Tonsillectomy Additional Past Surgical History / Comment(s): colonoscopy, cystoscopy for kidney stones, oral surgery, lithotripsy, esbl Past Anesthesia/Blood Transfusion Reactions: Previous Problems w/ Anesthesia, Motion Sickness Additional Past Anesthesia/Blood Transfusion Reaction / Comment(s): Wakes up confused-pulling at IV Past Psychological History: No Psychological Hx Reported Smoking Status: Never smoker Past Alcohol Use History: None Reported Past Drug Use History: None Reported - Past Family History Mother Family Medical History: Cancer Additional Family Medical History / Comment(s): . Sister(s) Additional Family Medical History / Comment(s): Patient has 2 sisters and 1 brother with no major medical problems. Patient does not have any children. General Exam Limitations: no limitations General appearance: alert, in no apparent distress Head exam: Present: atraumatic, normocephalic Eye exam: Present: normal appearance. Absent: scleral icterus, conjunctival injection ENT exam: Present: normal oropharynx Neck exam: Present: normal inspection, full ROM. Absent: meningismus Respiratory exam: Present: normal lung sounds bilaterally. Absent: respiratory distress, wheezes, rales, rhonchi, stridor Cardiovascular Exam: Present: regular rate, normal rhythm, normal heart sounds. Absent: systolic murmur, diastolic murmur, rubs, gallop GI/Abdominal exam: Present: soft. Absent: distended, tenderness, guarding, rebound, rigid, mass Extremities exam: Present: normal inspection, normal capillary refill. Absent: pedal edema, calf tenderness Back exam: Present: normal inspection. Absent: CVA tenderness (R), CVA tenderness (L) Neurological exam: Present: alert Skin exam: Present: warm, dry, intact, normal color. Absent: rash Course Vital Signs 03/29/20 03/29/20 03/30/20 21:49 23:00 00:05 Temperature 100.0 F H 98.7 F Pulse Rate 140 H 110 H Respiratory 18 Rate Blood Pressure 124/75 O2 Sat by Pulse 98 Oximetry 03/30/20 00:30 Temperature Pulse Rate 108 H Respiratory 18 Rate Blood Pressure 112/69 O2 Sat by Pulse 98 Oximetry Medical Decision Making - Medical Decision Making Patient is 24-year-old woman approximately 16 weeks with low-grade fevers, cough, does have evidence of urinary tract infection on the labs. Patient given dose of antibiotics here and we will going to give fluids with patient declined stating that she wanted to go. She will return should there be no improvement or if there is any worsening. I discussed with patient and she is declining Covid test stating she does not believe that is what going on. - Lab Data Result diagrams: 03/29/20 22:27 03/29/20 22:27 Lab Results 03/29/20 03/29/20 03/29/20 Range/Units 22:27 22:27 22:27 WBC 20.8 H (3.8-10.6) k/uL RBC 4.16 (3.80-5.40) m/uL Hgb 12.1 (11.4-16.0) gm/dL Hct 34.3 (34.0-46.0) % MCV 82.5 (80.0-100.0) fL MCH 29.0 (25.0-35.0) pg MCHC 35.2 (31.0-37.0) g/dL RDW 12.9 (11.5-15.5) % Plt Count 269 (150-450) k/uL Neutrophils % 90 % Lymphocytes % 5 % Monocytes % 4 % Eosinophils % 0 % Basophils % 0 % Neutrophils # 18.7 H (1.3-7.7) k/uL Lymphocytes # 1.0 (1.0-4.8) k/uL Monocytes # 0.8 (0-1.0) k/uL Eosinophils # 0.1 (0-0.7) k/uL Basophils # 0.1 (0-0.2) k/uL Sodium 131 L (137-145) mmol/L Potassium 4.0 (3.5-5.1) mmol/L Chloride 102 (98-107) mmol/L Carbon Dioxide 22 (22-30) mmol/L Anion Gap 7 mmol/L BUN 5 L (7-17) mg/dL Creatinine 0.44 L (0.52-1.04) mg/dL Est GFR (CKD-EPI)AfAm >90 (>60 ml/min/1.73 sqM) Est GFR (CKD-EPI)NonAf >90 (>60 ml/min/1.73 sqM) Glucose 105 H (74-99) mg/dL Calcium 9.4 (8.4-10.2) mg/dL Total Bilirubin 0.5 (0.2-1.3) mg/dL AST 31 (14-36) U/L ALT 42 H (4-34) U/L Alkaline Phosphatase 74 (38-126) U/L Total Protein 6.6 (6.3-8.2) g/dL Albumin 3.9 (3.5-5.0) g/dL Urine Color Yellow Urine Appearance Cloudy H (Clear) Urine pH 6.5 (5.0-8.0) Ur Specific [place] 1.026 (1.001-1.035) Urine Protein Trace H (Negative) Urine Glucose (UA) Negative (Negative) Urine Ketones 3+ H (Negative) Urine Blood Moderate H (Negative) Urine Nitrite Negative (Negative) Urine Bilirubin Negative (Negative) Urine Urobilinogen 2.0 (<2.0) mg/dL Ur Leukocyte Esterase Moderate H (Negative) Urine RBC 108 H (0-5) /hpf Urine WBC 10 H (0-5) /hpf Ur Squamous Epith Cells 25 H (0-4) /hpf Urine Bacteria Occasional H (None) /hpf Urine Mucus Many H (None) /hpf Disposition Clinical Impression: Urinary tract infection Disposition: HOME SELF-CARE Condition: Good Instructions (If sedation given, give patient instructions): Urinary Tract Infection in (ED) Prescriptions: Amoxicillin 500 mg PO Q8H #21 capsule Is patient prescribed a controlled substance at d/c from ED?: No Referrals: Miguel Coy MD [Primary Care Provider] - 1-2 days
[2020-03-29 22:48] LABS: Basophils # (A) 0.1 k/uL (0-0.2); Basophils % (A) 0 %; Eosinophils # (A) 0.1 k/uL (0-0.7); Eosinophils % (A) 0 %; HCT 34.3 % (34.0-46.0); HGB 12.1 gm/dL (11.4-16.0); Lymphocytes % (A) 5 %; MCHC 35.2 g/dL (31.0-37.0); MCV 82.5 fL (80.0-100.0); Monocytes # (A) 0.8 k/uL (0-1.0); Monocytes % (A) 4 %; Neutrophils # (A) 18.7 k/uL (1.3-7.7); Neutrophils % (A) 90 %; Platelet Count 269 k/uL (150-450); RBC 4.16 m/uL (3.80-5.40); RDW 12.9 % (11.5-15.5); WBC 20.8 k/uL (3.8-10.6)
[2020-03-29 22:56] LABS: ALT 42 U/L (4-34); AST 31 U/L (14-36); African American GFR (CKD) >90 (>60 ml/min/1.73 sqM); Albumin 3.9 g/dL (3.5-5.0); Alkaline Phosphatase 74 U/L (38-126); Anion Gap 7 mmol/L; Blood Urea Nitrogen 5 mg/dL (7-17); Calcium 9.4 mg/dL (8.4-10.2); Carbon Dioxide 22 mmol/L (22-30); Chloride 102 mmol/L (98-107); Glucose 105 mg/dL (74-99); Non-African American GFR(CKD) >90 (>60 ml/min/1.73 sqM); Sodium 131 mmol/L (137-145); Total Bilirubin 0.5 mg/dL (0.2-1.3); Total Protein 6.6 g/dL (6.3-8.2)
[2020-03-29 23:16] LABS: Appearance,Urine Cloudy (Clear); Bacteria,Urine Occasional /hpf; Bilirubin,Urine Negative (Negative); Blood,Urine Moderate (Negative); Color,Urine Yellow; Glucose,Urine (UA) Negative (Negative); Ketones,Urine 3+ (Negative); Leukocyte Esterase,Urine Moderate (Negative); Mucus,Urine Many /hpf; Nitrite,Urine Negative (Negative); PH, Urine 6.5 (5.0-8.0); Protein,Urine Trace (Negative); RBC,Urine 108 /hpf (0-5); Specific Gravity,Urine 1.026 (1.001-1.035); Squamous Epithelial Cell,Urine 25 /hpf (0-4); WBC,Urine 10 /hpf (0-5)
[2020-03-30 00:05] VITALS: TEMP 98.7
[2020-03-30] MEDS ORDERED: DEXTROSE 5%-0.45% NACL 1,000 ML IV ONE (00:10)
[2020-03-30] MEDS ORDERED: AMOXICILLIN 875 MG TAB PO ONE (00:15)
[2020-03-30 00:31] VITALS: BP 112/69; PULSE 108
== END 2020-03-30 00:43 | disposition home or self-care (01) ==
LOC: EC 21:37
DX: O23.42 Unspecified infection of urinary tract in pregnancy, second trimester (principal); O99.89 Other specified diseases and conditions complicating pregnancy, childbirth and the puerperium; R05 Cough; O16.2 Unspecified maternal hypertension, second trimester; O99.512 Diseases of the respiratory system complicating pregnancy, second trimester; O99.612 Diseases of the digestive system complicating pregnancy, second trimester; J45.909 Unspecified asthma, uncomplicated; K21.9 Gastro-esophageal reflux disease without esophagitis; Z3A.16 16 weeks gestation of pregnancy; Z79.899 Other long term (current) drug therapy; Z88.1 Allergy status to other antibiotic agents; Z88.2 Allergy status to sulfonamides; Z88.7 Allergy status to serum and vaccine; Z88.8 Allergy status to other drugs, medicaments and biological substances; Z91.012 Allergy to eggs; Z91.018 Allergy to other foods
CPT/HCPCS: 36415; 80053; 83605; 85025; 81001; 99283; 96374; 96361; J2765

== ENCOUNTER → 2020-05-18 | Outpatient (CLI) | payer OTHER ==
[2020-05-18 19:53] LABS: African American GFR (CKD) 154.8 (60.0-200.0); Anion Gap 7.4 mmol/L (4.00-12.00); Calcium 8.7 mg/dL (8.7-10.3); Carbon Dioxide 26.6 mmol/L (21.6-31.8); Magnesium 1.8 mg/dL (1.5-2.4); Non-African American GFR(CKD) 133.6 (60.0-200.0); Potassium 3.6 mmol/L (3.5-5.5)
[2020-05-18 22:09] LABS: T4, Free (Free Thyroxine) 0.9 ng/dL (0.80-1.80)
== END | disposition home or self-care (01) ==
LOC: LABWHC1 12:57
PROVIDERS: ATTEND Nurse Practitioner
DX: I47.1 Supraventricular tachycardia (principal)
CPT/HCPCS: 36415; 80048; 83735; 84439; 84443

== ENCOUNTER 2020-07-16 12:18 | Outpatient (CLI) | payer OTHER ==
[2020-07-16 13:14] VITALS: BP 114/75; PULSE 100; RESP 14; TEMP 98.1
--- NOTE | 2020-07-17 16:47 | P.MSEPDOC ---
Presenting Problems - Arrival Data Date of Arrival on Unit: 07/16/20 Time of Arrival on Unit: 12:18 Mode of Transport: Ambulatory - Complaint OB-Reason for Admission/Chief Complaint: Other Comment: headache and swelling yesterday, since resolved Medical History - Information : 1 Para: 0 Term: 0 : 0 Abortions: Spontaneous or Elective: 0 Number of Living Children: 0 - Gestational Age Gestational Age by PRICILA (wks/days): 31 Weeks and 4 Days - History Complications: Chronic HTN Review of Systems - Review of Systems Constitutional: No problems Breast: No problems ENT: No problems Cardiovascular: No problems Respiratory: No problems Gastrointestinal: No problems Genitourinary: No problems Musculoskeletal: No problems Neurological: No problems Skin: No problems Vital Signs - Temperature Temperature: 98.1 F Temperature Source: Temporal Artery Scan - Pulse Pulse Oximetery Pulse Rate: 100 Pulse Assessment Method: Palpation - Respirations Respiratory Rate: 14 Oxygen Delivery Method: Room Air - Blood Pressure Right Arm Blood Pressure: 114/75 Blood Pressure Mean: 88 Blood Pressure Source: Automatic Cuff Medical Screen Scoring (Pre) - Cervical Exam Dilation: Exam Deferred Effacement: Exam Deferred - Uterine Contractions Frequency: N/A Duration: N/A Intensity: N/A - Maternal Vital Signs Maternal Temperature: N/A Maternal Blood Pressure: N/A Signs of Preeclampsia: N/A Maternal Respirations: N/A - Maternal Trauma Maternal Trauma: N/A - Assessment - Baby A Baseline FHR: 145 Heart Rate - NICHD Category: Category I (Normal) = 0 NST: Reactive Position: N/A Station: N/A - Total Score - Baby A Total Score - Baby A: 0 - Total Score - Baby B Total Score - Baby B: 0 - Total Score - Baby C Total Score - Baby C: 0 - Level of Risk - Baby A Level of Risk - Baby A: Low (0-5) - Level of Risk - Baby B Level of Risk - Baby B: Low (0-5) - Level of Risk - Baby C Level of Risk - Baby C: Low (0-5) Physician Notification (Pre) - Physician Notified Physician Notified Date: 07/16/20 Physician Notified Time: 13:01 New Order Received: Yes - Notification Comment Comment: discharge home. follow up with pedrito on thursday at scheduled appointment Disposition - Disposition OB Disposition: Discharge to home Discharge Date: 07/16/20 Discharge Time: 13:13 I agree with the RN Medical Screening Exam: Yes Risk & Benefit of care provided described in d/c instruction: Yes Diagnosis: RELATED CONDITIONS, UNSPECIFIED, THIRD TRIMESTER
== END 2020-07-16 13:14 | disposition home or self-care (01) ==
LOC: FBPOP 12:18
PROVIDERS: ATTEND Obstetrics & Gynecology
DX: O26.93 Pregnancy related conditions, unspecified, third trimester (principal); Z3A.31 31 weeks gestation of pregnancy
CPT/HCPCS: 59025; G0463; 99213

== ENCOUNTER 2020-08-20 00:23 | Outpatient (CLI) | payer OTHER ==
[2020-08-20 01:22] LABS: Creatinine,Urine Random 236.2 mg/dL; Protein/Creatinine Ratio,Urine 0.038
[2020-08-20 01:32] LABS: Amphetamine Screen,Urine Not Detected (NotDetected); Barbiturate Screen,Urine Not Detected (NotDetected); Benzodiazepines Screen,Urine Not Detected (NotDetected); Cocaine Screen,Urine Not Detected (NotDetected); Methadone Screen, Urine Not Detected (NotDetected); Opiate Screen,Urine Not Detected (NotDetected); Oxycodone Screen, Urine Not Detected (NotDetected); Phencyclidine Screen,Urine Not Detected (NotDetected); Tricyclic Antidepressant,Urine Not Detected (NotDetected); Urn Cannabinoid Scrn Not Detected (NotDetected)
[2020-08-20 01:39] LABS: Basophils % (A) 0 %; Eosinophils # (A) 0.1 k/uL (0-0.7); Eosinophils % (A) 2 %; HCT 31.5 % (34.0-46.0); HGB 10.9 gm/dL (11.4-16.0); Lymphocytes % (A) 22 %; MCH 31.8 pg (25.0-35.0); MCHC 34.7 g/dL (31.0-37.0); MCV 91.4 fL (80.0-100.0); Mean Platelet Volume 7.8; Monocytes # (A) 0.6 k/uL (0-1.0); Monocytes % (A) 6 %; Neutrophils # (A) 6.2 k/uL (1.3-7.7); Neutrophils % (A) 68 %; Platelet Count 223 k/uL (150-450); RBC 3.44 m/uL (3.80-5.40); RDW 15.2 % (11.5-15.5); WBC 9.1 k/uL (3.8-10.6)
[2020-08-20 01:41] LABS: INR 0.9 (<1.2); Partial Thromboplastin Time 26.4 sec (22.0-30.0); Prothrombin Time 10.1 sec (9.0-12.0)
[2020-08-20 02:03] LABS: Blood Urea Nitrogen 6 mg/dL (7-17)
[2020-08-20 02:04] LABS: ALT 14 U/L (4-34); AST 22 U/L (14-36); African American GFR (CKD) >90 (>60 ml/min/1.73 sqM); LDH 370 U/L (313-618); Non-African American GFR(CKD) >90 (>60 ml/min/1.73 sqM); Uric Acid 4.4 mg/dL (3.7-7.4)
[2020-08-20 02:06] LABS: Appearance,Urine Cloudy (Clear); Bilirubin,Urine Negative (Negative); Blood,Urine Large (Negative); Calcium Oxalate Crystals,Urine Occasional /hpf; Color,Urine Yellow; Glucose,Urine (UA) Negative (Negative); Ketones,Urine Trace (Negative); Leukocyte Esterase,Urine Trace (Negative); Mucus,Urine Many /hpf; Nitrite,Urine Negative (Negative); Protein,Urine 1+ (Negative); RBC,Urine 65 /hpf (0-5); Specific Gravity,Urine 1.031 (1.001-1.035); Squamous Epithelial Cell,Urine 1 /hpf (0-4); Urobilinogen,Urine <2.0 mg/dL (<2.0); WBC,Urine 4 /hpf (0-5)
[2020-08-20 02:32] VITALS: BP 144/81; PULSE 108; RESP 16; TEMP 97.4
--- NOTE | 2020-08-24 07:35 | P.MSEPDOC ---
Presenting Problems - Arrival Data Date of Arrival on Unit: 08/20/20 Time of Arrival on Unit: 00:23 Mode of Transport: EMS - Complaint OB-Reason for Admission/Chief Complaint: Acute Nausea/Vomiting Medical History - Information : 1 Para: 0 Term: 0 : 0 Abortions: Spontaneous or Elective: 0 Number of Living Children: 0 - Gestational Age Gestational Age by PRICILA (wks/days): 36 Weeks and 4 Days Review of Systems - Review of Systems Constitutional: No problems Breast: No problems ENT: No problems Cardiovascular: No problems Respiratory: No problems Gastrointestinal: No problems Genitourinary: No problems Musculoskeletal: No problems Neurological: Dizziness Skin: No problems Vital Signs - Temperature Temperature: 97.4 F Temperature Source: Oral - Pulse Right Brachial Pulse Rate: 108 Pulse Assessment Method: Automatic Cuff - Respirations Respiratory Rate: 16 Oxygen Delivery Method: Room Air O2 Sat by Pulse Oximetry: 100 - Blood Pressure Right Arm Blood Pressure: 144/81 Blood Pressure Mean: 102 Blood Pressure Source: Automatic Cuff Medical Screen Scoring (Pre) - Cervical Exam Dilation: 1-3 cm = 1 Membranes: Intact - Uterine Contractions Frequency: > 5 minutes apart = 1 Duration: N/A Intensity: N/A - Maternal Vital Signs Maternal Temperature: N/A Maternal Blood Pressure: N/A Signs of Preeclampsia: Nausea/Vomiting = 1 Maternal Respirations: N/A - Maternal Trauma Maternal Trauma: N/A - Assessment - Baby A Baseline FHR: 135 Heart Rate - NICHD Category: Category I (Normal) = 0 NST: Reactive Position: N/A Station: N/A - Total Score - Baby A Total Score - Baby A: 3 - Total Score - Baby B Total Score - Baby B: 3 - Total Score - Baby C Total Score - Baby C: 3 - Level of Risk - Baby A Level of Risk - Baby A: Low (0-5) - Level of Risk - Baby B Level of Risk - Baby B: Low (0-5) - Level of Risk - Baby C Level of Risk - Baby C: Low (0-5) Physician Notification (Pre) - Physician Notified Physician Notified Date: 08/20/20 Physician Notified Time: 02:15 New Order Received: Yes - Notification Comment Comment: Dr. Cortés given lab results. Pt status has improved. Orders recieved to send. Urine for culture. Orders recieved to d/c pt to home. To educate pt to obtain results. from culture in office. Disposition - Disposition OB Disposition: Discharge to home Discharge Date: 08/20/20 Discharge Time: 02:28 I agree with the RN Medical Screening Exam: Yes Case reviewed; plan agreed upon as documented in EMR&OBIX.: Yes Diagnosis: VOMITING OF , UNSPECIFIED
== END 2020-08-20 02:28 | disposition home or self-care (01) ==
LOC: FBPOP 00:23
PROVIDERS: ATTEND Obstetrics & Gynecology
DX: O21.9 Vomiting of pregnancy, unspecified (principal); Z3A.36 36 weeks gestation of pregnancy
CPT/HCPCS: 59025; 82570; 84156; 82565; 83615; 84450; 84460; 84520; 84550; 85025; 85610; 85730; 81001; 80306; 87086; G0463; 99213

== ENCOUNTER 2020-08-23 11:57 | Outpatient (CLI) | payer OTHER ==
[2020-08-23 12:47] LABS: Amorphous Sediment,Urine Rare /hpf; Appearance,Urine Cloudy (Clear); Bacteria,Urine Occasional /hpf; Bilirubin,Urine Negative (Negative); Blood,Urine Negative (Negative); Color,Urine Yellow; Glucose,Urine (UA) Negative (Negative); Hyaline Casts,Urine 1 /lpf (0-2); Ketones,Urine Negative (Negative); Leukocyte Esterase,Urine Moderate (Negative); Mucus,Urine Rare /hpf; Nitrite,Urine Negative (Negative); Protein,Urine Negative (Negative); RBC,Urine 1 /hpf (0-5); Specific Gravity,Urine 1.012 (1.001-1.035); Squamous Epithelial Cell,Urine 3 /hpf (0-4); Urobilinogen,Urine <2.0 mg/dL (<2.0); WBC,Urine 8 /hpf (0-5)
[2020-08-23 13:03] LABS: Creatinine,Urine Random 80.1 mg/dL; Protein/Creatinine Ratio,Urine 0.212
[2020-08-23 13:12] LABS: Basophils % (A) 0 %; Eosinophils # (A) 0.1 k/uL (0-0.7); Eosinophils % (A) 1 %; HGB 11.4 gm/dL (11.4-16.0); Lymphocytes # (A) 1.9 k/uL (1.0-4.8); Lymphocytes % (A) 22 %; MCH 32.1 pg (25.0-35.0); MCHC 35.7 g/dL (31.0-37.0); MCV 89.9 fL (80.0-100.0); Mean Platelet Volume 7.6; Monocytes # (A) 0.5 k/uL (0-1.0); Monocytes % (A) 6 %; Neutrophils # (A) 5.9 k/uL (1.3-7.7); Neutrophils % (A) 69 %; Platelet Count 185 k/uL (150-450); RBC 3.55 m/uL (3.80-5.40); RDW 15.1 % (11.5-15.5); WBC 8.6 k/uL (3.8-10.6)
[2020-08-23 13:27] LABS: ALT 13 U/L (4-34); AST 23 U/L (14-36); African American GFR (CKD) >90 (>60 ml/min/1.73 sqM); Blood Urea Nitrogen 5 mg/dL (7-17); LDH 375 U/L (313-618); Non-African American GFR(CKD) >90 (>60 ml/min/1.73 sqM); Uric Acid 4.1 mg/dL (3.7-7.4)
[2020-08-23 13:40] VITALS: BP 133/90; PULSE 97; RESP 16; TEMP 97
--- NOTE | 2020-08-24 07:35 | P.MSEPDOC ---
Presenting Problems - Arrival Data Date of Arrival on Unit: 08/23/20 Time of Arrival on Unit: 12:56 Mode of Transport: Wheelchair - Complaint OB-Reason for Admission/Chief Complaint: PIH Comment: Pt states she was just at [facility] for NST and US. Feeling dizzy, nauseous,. headache x 1 day, contractions q30min x 1 day and swelling. Being followed by MFM for. HTN, IOL scheduled for 3/4 Medical History - Information : 1 Para: 0 - Gestational Age Gestational Age by PRICILA (wks/days): 37 Weeks and 0 Days Review of Systems - Review of Systems Constitutional: No problems Breast: No problems ENT: No problems Cardiovascular: No problems Respiratory: No problems Gastrointestinal: No problems Genitourinary: No problems Musculoskeletal: No problems Neurological: Dizziness Skin: No problems Vital Signs - Temperature Temperature: 97 F Temperature Source: Temporal Artery Scan - Pulse Right Sitting Brachial Pulse Rate: 97 Pulse Assessment Method: Automatic Cuff - Respirations Respiratory Rate: 16 Oxygen Delivery Method: Room Air O2 Sat by Pulse Oximetry: 100 - Blood Pressure Right Arm Sitting Blood Pressure: 133/90 Blood Pressure Mean: 104 Blood Pressure Source: Automatic Cuff Medical Screen Scoring (Pre) - Cervical Exam Dilation: Exam Deferred Effacement: Exam Deferred - Uterine Contractions Frequency: N/A Duration: N/A Intensity: N/A - Maternal Vital Signs Maternal Temperature: N/A Signs of Preeclampsia: N/A Maternal Respirations: N/A - Maternal Trauma Maternal Trauma: N/A - Assessment - Baby A Baseline FHR: 140 Heart Rate - NICHD Category: Category I (Normal) = 0 NST: Reactive Position: N/A Station: N/A - Total Score - Baby A Total Score - Baby A: 0 - Total Score - Baby B Total Score - Baby B: 0 - Total Score - Baby C Total Score - Baby C: 0 - Level of Risk - Baby A Level of Risk - Baby A: Low (0-5) - Level of Risk - Baby B Level of Risk - Baby B: Low (0-5) - Level of Risk - Baby C Level of Risk - Baby C: Low (0-5) Physician Notification (Pre) - Physician Notified Physician Notified Date: 08/23/20 Physician Notified Time: 13:32 - Notification Comment Comment: Kamari stephen\Dr. Cortés, advsd pt of Dr. Omer, , 37 0/, PIH lab results and UA reviewed, reactive NST, reviewed BPs. States to d/c home, to follow up as scheduled. Disposition - Disposition OB Disposition: Discharge to home, Written follow up instructions reviewed Discharge Date: 08/23/20 Discharge Time: 13:35 I agree with the RN Medical Screening Exam: Yes Case reviewed; plan agreed upon as documented in EMR&OBIX.: Yes Diagnosis: RELATED CONDITIONS, UNSPECIFIED, THIRD TRIMESTER
== END 2020-08-23 13:35 | disposition home or self-care (01) ==
LOC: FBPOP 11:57
PROVIDERS: ATTEND Obstetrics & Gynecology
DX: O26.93 Pregnancy related conditions, unspecified, third trimester (principal); Z3A.37 37 weeks gestation of pregnancy
CPT/HCPCS: 59025; 82570; 84156; 82565; 83615; 84450; 84460; 84520; 84550; 85025; 81001; G0463; 99215

== ENCOUNTER 2020-08-27 17:51 | Outpatient (CLI) | payer OTHER ==
[2020-08-27 18:33] LABS: Basophils % (A) 0 %; Eosinophils # (A) 0.1 k/uL (0-0.7); Eosinophils % (A) 1 %; HCT 32.5 % (34.0-46.0); HGB 11.7 gm/dL (11.4-16.0); Lymphocytes # (A) 1.7 k/uL (1.0-4.8); Lymphocytes % (A) 18 %; MCH 32.1 pg (25.0-35.0); MCHC 35.9 g/dL (31.0-37.0); MCV 89.3 fL (80.0-100.0); Mean Platelet Volume 7.8; Monocytes # (A) 0.5 k/uL (0-1.0); Monocytes % (A) 5 %; Neutrophils # (A) 7.1 k/uL (1.3-7.7); Neutrophils % (A) 74 %; Platelet Count 200 k/uL (150-450); RBC 3.65 m/uL (3.80-5.40); RDW 15.1 % (11.5-15.5); WBC 9.5 k/uL (3.8-10.6)
[2020-08-27 18:36] LABS: Appearance,Urine Clear (Clear); Bilirubin,Urine Negative (Negative); Blood,Urine Negative (Negative); Color,Urine Yellow; Glucose,Urine (UA) Negative (Negative); Ketones,Urine Negative (Negative); Leukocyte Esterase,Urine Negative (Negative); Nitrite,Urine Negative (Negative); PH, Urine 6.5 (5.0-8.0); Protein,Urine Negative (Negative); Specific Gravity,Urine 1.011 (1.001-1.035); Urobilinogen,Urine <2.0 mg/dL (<2.0)
[2020-08-27 18:41] LABS: ALT 14 U/L (4-34); AST 22 U/L (14-36); African American GFR (CKD) >90 (>60 ml/min/1.73 sqM); Blood Urea Nitrogen 5 mg/dL (7-17); LDH 389 U/L (313-618); Non-African American GFR(CKD) >90 (>60 ml/min/1.73 sqM); Uric Acid 4.1 mg/dL (3.7-7.4)
[2020-08-27 18:56] LABS: Creatinine,Urine Random 76.8 mg/dL; Protein/Creatinine Ratio,Urine 0.221
[2020-08-27 19:23] VITALS: BP 129/83; PULSE 114; RESP 16; TEMP 99
--- NOTE | 2020-08-29 13:05 | P.MSEPDOC ---
Presenting Problems - Arrival Data Date of Arrival on Unit: 08/27/20 Time of Arrival on Unit: 17:51 Mode of Transport: Wheelchair - Complaint OB-Reason for Admission/Chief Complaint: PIH Comment: patient was told to come over from office due to protein in her urine. Medical History - Information : 1 Para: 0 Term: 0 : 0 Abortions: Spontaneous or Elective: 0 Number of Living Children: 0 - Gestational Age Gestational Age by PRICILA (wks/days): 37 Weeks and 4 Days Review of Systems - Review of Systems Constitutional: No problems Breast: No problems ENT: No problems Cardiovascular: No problems Respiratory: No problems Gastrointestinal: No problems Genitourinary: No problems Musculoskeletal: No problems Neurological: No problems Skin: No problems Vital Signs - Temperature Temperature: 99.0 F Temperature Source: Temporal Artery Scan - Pulse Pulse Oximetery Pulse Rate: 114 Pulse Assessment Method: Automatic Cuff - Respirations Respiratory Rate: 16 Oxygen Delivery Method: Room Air - Blood Pressure Left Arm Blood Pressure: 129/83 Blood Pressure Mean: 98 Blood Pressure Source: Automatic Cuff Medical Screen Scoring (Pre) - Cervical Exam Dilation: Exam Deferred Effacement: Exam Deferred Membranes: Intact - Uterine Contractions Frequency: N/A Duration: N/A Intensity: N/A - Maternal Vital Signs Maternal Temperature: N/A Maternal Blood Pressure: N/A Signs of Preeclampsia: N/A Maternal Respirations: N/A - Maternal Trauma Maternal Trauma: N/A - Assessment - Baby A Baseline FHR: 130 Heart Rate - NICHD Category: Category I (Normal) = 0 NST: Reactive Position: N/A Station: N/A - Total Score - Baby A Total Score - Baby A: 0 - Total Score - Baby B Total Score - Baby B: 0 - Total Score - Baby C Total Score - Baby C: 0 - Level of Risk - Baby A Level of Risk - Baby A: Low (0-5) - Level of Risk - Baby B Level of Risk - Baby B: Low (0-5) - Level of Risk - Baby C Level of Risk - Baby C: Low (0-5) Physician Notification (Pre) - Physician Notified Physician Notified Date: 08/27/20 Physician Notified Time: 19:21 - Notification Comment Comment: DARIN Olmos spoke with Dr. Cortés at 1908 to report normal labs and blood pressure. patient approved for discharge and to return 08/30/20 for induction of labor. Disposition - Disposition OB Disposition: Discharge to home Discharge Date: 08/27/20 Discharge Time: 19:16 I agree with the RN Medical Screening Exam: Yes Case reviewed; plan agreed upon as documented in EMR&OBIX.: Yes Diagnosis: UNSPECIFIED ABNORMAL FINDINGS IN URINE
== END 2020-08-27 19:16 ==
LOC: FBPOP 17:51
PROVIDERS: ATTEND Obstetrics & Gynecology
DX: O26.893 Other specified pregnancy related conditions, third trimester (principal); R82.90 Unspecified abnormal findings in urine; Z3A.37 37 weeks gestation of pregnancy
CPT/HCPCS: 59025; 82570; 84156; 82565; 83615; 84450; 84460; 84520; 84550; 85025; 81003; G0463; 99215

== ENCOUNTER 2020-08-30 06:00 | Inpatient (IN) | payer OTHER ==
[2020-08-30] MEDS ORDERED: TERBUTALINE 1 MG/ML VIAL SQ PRN (06:34)
[2020-08-30] MEDS ORDERED: OXYTOCIN 10 UNIT/ML 1 ML VIAL IM PRN (06:34)
[2020-08-30] MEDS ORDERED: METHYLERGONOVINE 0.2 MG/ML 1 ML AMP IM PRN (06:34)
[2020-08-30] MEDS ORDERED: LIDOCAINE 0.5% (PF) 5 MG/ML (50 ML SDV) SQ PRN (06:34)
[2020-08-30] MEDS ORDERED: CARBOPROST TROMETHAMINE 250 MCG/ML 1 ML AMP IM PRN (06:34)
[2020-08-30] MEDS: LACTATED RINGERS 1,000 ML IV SCH ×3 (06:43→14:55)
[2020-08-30] MEDS ORDERED: OXYTOCIN 30 UNITS/500 ML NS 30 UNIT in SALINE 1 500ML.BAG IV SCH (06:45)
[2020-08-30 06:58] LABS: Basophils % (A) 0 %; Eosinophils # (A) 0.2 k/uL (0-0.7); Eosinophils % (A) 2 %; HCT 34.5 % (34.0-46.0); HGB 11.9 gm/dL (11.4-16.0); Lymphocytes # (A) 2.2 k/uL (1.0-4.8); Lymphocytes % (A) 24 %; MCH 31.1 pg (25.0-35.0); MCHC 34.6 g/dL (31.0-37.0); MCV 90.1 fL (80.0-100.0); Mean Platelet Volume 7.6; Monocytes # (A) 0.6 k/uL (0-1.0); Monocytes % (A) 6 %; Neutrophils # (A) 6.1 k/uL (1.3-7.7); Neutrophils % (A) 66 %; Platelet Count 204 k/uL (150-450); RBC 3.83 m/uL (3.80-5.40); RDW 15.6 % (11.5-15.5); WBC 9.3 k/uL (3.8-10.6)
[2020-08-30] MEDS ORDERED: BUTORPHANOL 1 MG/ML 1 ML VIAL IV PRN (10:04)
[2020-08-30] MEDS ORDERED: ROPIVACAINE 100 MG, fentaNYL (PF) 200 MCG in SODIUM CHLORIDE 0.9% 76 ML EPIDURAL ONE (13:09)
[2020-08-30] MEDS ORDERED: CITRIC ACID-SODIUM CITRATE 15 ML CUP PO ONE (19:11)
[2020-08-30] MEDS ORDERED: MIDAZOLAM 2 MG/2 ML VIAL ONE (19:23)
[2020-08-30] MEDS ORDERED: MORPHINE SULFATE (PF) 0.3 MG/0.3 ML SYR ONE (19:23)
[2020-08-30] MEDS ORDERED: ONDANSETRON 4 MG/2 ML VIAL ONE (19:23)
[2020-08-30] MEDS ORDERED: KETOROLAC 15 MG/ML 1 ML VIAL ONE (19:23)
[2020-08-30] MEDS ORDERED: ONDANSETRON 4 MG/2 ML VIAL IVP PRN (20:02)
[2020-08-30] MEDS ORDERED: diphenhydrAMINE 25 MG CAP PO PRN (20:02)
[2020-08-30] MEDS ORDERED: SIMETHICONE 80 MG CHEWABLE PO PRN (20:02)
[2020-08-30] MEDS ORDERED: ZOLPIDEM 5 MG TAB PO PRN (20:02)
[2020-08-30] MEDS ORDERED: diphenhydrAMINE 50 MG CAP PO PRN (20:02)
[2020-08-30] MEDS ORDERED: METOCLOPRAMIDE 5 MG/ML 2 ML VIAL IVP PRN (20:02)
[2020-08-30] MEDS ORDERED: NALOXONE 0.4 MG/ML 1 ML VIAL IV PRN (20:02)
[2020-08-30] MEDS ORDERED: diphenhydrAMINE 50 MG/ML 1 ML VIAL IVP PRN ×2 (20:02)
--- NOTE | 2020-08-30 20:08 | P.HPOB ---
History of Present Illness H&P Date: 08/30/20 Chief Complaint: Uterine at term: Pregestational hypertension Elva is a 25-year-old G one P0 at 38 weeks gestation who was here for induction of labor based on maternal medicine recommendation. Her course has been, complicated by a history of hypertension for which she was on metoprolol. This was also added as she was having symptomatic tachycardia at 20 weeks and she was seen by cardiology for same. She did have an echo and Holter monitor but no other regulations were made at that point. Through the remainder the she did much better and she is feeling well this time. We did do a pre-clamped labs on at least 2 other occasions to rule out any issues however, her blood pressures remained stable throughout the on her medication. She did do twice weekly nonstress tests and weekly biophysical profiles after approximately 32 weeks. This morning she is dilated to 2 cm artificial rupture membranes was performed and clear fluid is noted. We'll plan Pitocin augmentation of labor with expectation for spontaneous vaginal delivery. She plans to use epidural for analgesia. Pertinent labs could A+ blood type, Rh antibody was negative, rubella is immune, hepatitis B surface antigen and RPR and GBS are all negative. Category 1 tracings noted Past Medical History Past Medical History: Asthma, Chest Pain / Angina, GERD/Reflux, Hypertension Additional Past Medical History / Comment(s): IBS, raynauds, migraines, heart murmer as child, Sinus Tachycardia, kidney stones. History of Any Multi-Drug Resistant Organisms: None Reported Past Surgical History: Tonsillectomy Additional Past Surgical History / Comment(s): colonoscopy, cystoscopy for kidney stones, oral surgery, lithotripsy, esbl Past Anesthesia/Blood Transfusion Reactions: Previous Problems w/ Anesthesia, Motion Sickness Additional Past Anesthesia/Blood Transfusion Reaction / Comment(s): Wakes up confused-pulling at IV Past Psychological History: No Psychological Hx Reported Smoking Status: Never smoker Past Alcohol Use History: None Reported Additional Past Alcohol Use History / Comment(s): . Past Drug Use History: None Reported - Past Family History Mother Family Medical History: Cancer Additional Family Medical History / Comment(s): . Sister(s) Additional Family Medical History / Comment(s): Patient has 2 sisters and 1 brother with no major medical problems. Patient does not have any children. Medications and Allergies Home Medications Medication Instructions Recorded Confirmed Type Metoprolol Tartrate [Lopressor] 50 mg PO QAM 12/09/18 08/30/20 History Albuterol Sulfate [Albuterol 2 puff PO Q4-6H PRN 12/20/18 08/30/20 History Sulfate Hfa] Metoprolol Tartrate [Lopressor] 25 mg PO HS 09/08/19 08/30/20 History Doxylamine Succinate [Unisom] 1 tab PO DAILY 08/20/20 08/30/20 History Ferrous Sulfate [Feosol] 325 mg PO DAILY 08/20/20 08/30/20 History Montelukast Sodium [Singulair] 10 mg PO HS 08/20/20 08/30/20 History Pnv No.95/Ferrous Fum/Folic AC 1 tab PO DAILY 08/20/20 08/30/20 History [ Multivitamin Tablet] Allergies Allergy/AdvReac Type Severity Reaction Status Date / Time clindamycin Allergy Rash/Hives Verified 08/30/20 06:31 egg Allergy Swelling Verified 08/30/20 06:31 blueberry AdvReac Itching Verified 08/30/20 06:31 cefaclor [From Ceclor] AdvReac Rash/Hives Verified 08/30/20 06:31 Influenza Virus Vaccines AdvReac Unknown Verified 08/30/20 06:31 nitrofurantoin AdvReac Unknown Verified 08/30/20 06:31 [From Macrobid] onion AdvReac Rash/Hives Verified 08/30/20 06:31 Sulfa (Sulfonamide AdvReac Swelling Verified 08/30/20 06:31 Antibiotics) Exam Osteopathic Statement: *. No significant issues noted on an osteopathic structural exam other than those noted in the History and Physical/Consult. Vital Signs Temp Pulse Resp BP 08/30/20 07:35 96.7 F L 95 16 141/98 Intake and Output 08/30/20 08/30/20 08/30/20 06:59 14:59 22:59 Other: # Voids 0 Weight 57.606 kg 57.606 kg - OBG Physical Exam Breast: both: normal (no masses) Abdomen: bowel sounds normal, no diffuse tenderness, no bruit present, no guarding noted, no hepatomegaly, no splenomegaly, no mass Vulva: both: normal Vagina: normal moisture, no discharge Cervix: no lesion, no discharge Uterus: normal size, normal contour Adnexa: both: normal Anus/Rectum: normal perianal skin, no rectal mass, no hemorrhoids, heme negative Results Result Diagrams: 08/30/20 06:40 Abnormal Lab Results - Last 24 Hours (Table) 08/30/20 Range/Units 06:40 RDW 15.6 H (11.5-15.5) %
--- NOTE | 2020-08-30 20:12 | P.OP ---
Date of Procedure: 08/30/20 Preoperative Diagnosis: Intrauterine at term: Arrest of descent Postoperative Diagnosis: Same: Cephalopelvic disproportion Procedure(s) Performed: Primary low-transverse section Anesthesia: epidural Surgeon: Albaro Ann Child Care Leader #1: Savita Hernandez Estimated Blood Loss (ml): 500 IV fluids (ml): 1,000 Urine output (ml): 400 Pathology: other (Placenta) Condition: stable Disposition: floor Operative Findings: Viable male 's of 9 and 9 at one and 5 minutes [place] and the weight was 7 lbs. 7 oz. Description of Procedure: Patient was taken to the operating suite where an epidural anesthetic was found be adequate. She was prepped and draped in normal sterile fashion and placed in the dorsal supine position with leftward tilt. Initially a Pfannenstiel skin incision was made and this incision was then carried through to underlying layer of the fascia was second knife. Fascia was then nicked in the midline and this opening was extended laterally with Schuler scissors. Superior and inferior aspect of this incision were then grasped tented up and bluntly and sharply dissected off the rectus muscles. Rectus muscles were then divided midline and blunt dissection through the peritoneum was performed. This opening was then extended superiorly and inferiorly with good visualization of both bowel bladder. Bladder blade was then placed bladder flap identified and with but sponsors and carried across face uterus and then the bladder was bluntly dissected out of the operative field. Knife was then used to incise uterus this opening was then extended bluntly following complete opening with a hemostat. Once this was accomplished head was 8 medically delivered from left occiput transverse position. Once head was fully delivered nuchal cord 1 was reduced and a true knot was noted in the cord. Anterior posterior shoulders were then easily delivered with gentle downward upper traction followed by the remainder the baby. Nursery personnel was present to assume care and the umbilical cord was clamped cut usual fashion. Placenta was then delivered intact Pitocin was added to the IV. Uterus was then exteriorized cleared of clots and debris and closed in 2 layers with 0 Vicryl suture. There was one area on the right corner of the did have some bleeding and interrupted suture was placed to obtain excellent hemostasis. Blood and debris was then suctioned from the posterior cul-de-sac and observation of the incision was made for approximately 3 minutes. Uterus was then reinserted into the abdomen and prior to closure of the peritoneum was reinspected with continued excellent hemostasis noted. Peritoneal layer was then closed with 0 Vicryl suture. Fascial layer was closed with 0 Vicryl suture. Subcuticular tissues was then reapproximated with 3-0 Vicryl and the skin was closed subcuticularly with 3-0 Vicryl. Sponge, lap, needle counts were all correct 2. Patient was then taken to the recovery room in stable and satisfactory condition.
[2020-08-30] MEDS ORDERED: ALBUTEROL NEBULIZED 2.5 MG/3 ML INHALATION PRN (20:18)
[2020-08-30] MEDS: ACETAMINOPHEN IV (For NPO) 1,000 MG in EMPTY BAG 1 BAG IVPB SCH (20:29)
[2020-08-30] MEDS: METOPROLOL TARTRATE 25 MG TAB PO SCH (20:46)
[2020-08-30] MEDS: MONTELUKAST 10 MG TAB PO SCH (20:47)
[2020-08-31] MEDS: ACETAMINOPHEN IV (For NPO) 1,000 MG in EMPTY BAG 1 BAG IVPB SCH (02:18)
[2020-08-31] MEDS: LACTATED RINGERS 1,000 ML IV SCH ×5 (02:19→21:45)
[2020-08-31] MEDS: KETOROLAC 15 MG/ML 1 ML VIAL IVP SCH ×5 (02:19→20:13)
[2020-08-31] MEDS: SENNOSIDES-DOCUSATE SODIUM 1 EACH TAB PO SCH ×2 (08:34→20:13)
[2020-08-31] MEDS: FERROUS SULFATE 325 MG TAB PO SCH (08:34)
[2020-08-31] MEDS: METOPROLOL TARTRATE 50 MG TAB PO SCH (08:35)
--- NOTE | 2020-08-31 08:41 | P.PNOBGPC ---
Subjective - Subjective Principal diagnosis: Postoperative day 1 Interval history: Hand is doing very well post op day 1. She is ambulating and she is voiding. She is tolerating her diet. She voices no complaints other than soreness. All questions are answered for this morning. We'll plan continue care with advancement of diet as tolerated. Patient reports: Reports appetite normal, Reports voiding normally, Reports pain well controlled, Reports ambulating normally [place]: doing well Objective - Vital Signs Latest vital signs: Vital Signs Temp Pulse Resp BP Pulse Ox 08/31/20 04:00 97.9 F 87 12 128/56 08/30/20 22:11 91 16 134/69 100 08/30/20 21:41 98.3 F 101 H 16 121/58 100 08/30/20 21:11 112 H 16 132/81 08/30/20 20:56 115 H 16 130/101 100 08/30/20 20:41 107 H 16 144/72 99 08/30/20 20:26 115 H 16 140/84 100 08/30/20 20:11 98.7 F 122 H 16 143/90 100 Intake and Output 08/30/20 08/31/20 08/31/20 22:59 06:59 14:59 Output Total 700 600 Balance -700 -600 Output: Urine 700 600 Other: Voiding Method Indwelling Catheter - Exam Lungs: bilateral: normal Chest: Normal S1, Normal S2 Extremities: Present: normal Abdomen: Present: normal appearance, soft. Absent: distention, tenderness Incision: Present: normal, dry, intact Uterus: Present: normal, firm
--- NOTE | 2020-08-31 08:51 | P.PN ---
Progress Note - Text 08/31/20 823am 25-year-old female status post with a epidural catheter. Patient was bolused with Duramorph via the epidural catheter. Patient has a VAS of 8 and was about to receive IV Toradol by the nurse.
[2020-08-31 09:20] LABS: Basophils % (A) 0 %; Eosinophils # (A) 0.1 k/uL (0-0.7); Eosinophils % (A) 0 %; HCT 29.5 % (34.0-46.0); HGB 10.4 gm/dL (11.4-16.0); Lymphocytes # (A) 1.7 k/uL (1.0-4.8); Lymphocytes % (A) 12 %; MCHC 35.1 g/dL (31.0-37.0); MCV 91.4 fL (80.0-100.0); Mean Platelet Volume 7.5; Monocytes # (A) 0.9 k/uL (0-1.0); Monocytes % (A) 6 %; Neutrophils # (A) 11.9 k/uL (1.3-7.7); Neutrophils % (A) 81 %; Platelet Count 167 k/uL (150-450); RBC 3.23 m/uL (3.80-5.40); RDW 15.2 % (11.5-15.5); WBC 14.7 k/uL (3.8-10.6)
[2020-08-31] MEDS: METOPROLOL TARTRATE 25 MG TAB PO SCH (21:09)
[2020-08-31] MEDS: MONTELUKAST 10 MG TAB PO SCH (21:10)
[2020-09-01] MEDS: IBUPROFEN 600 MG TAB PO PRN ×3 (02:45→18:53)
--- NOTE | 2020-09-01 07:34 | P.PNOBGPC ---
Subjective - Subjective Patient reports: Reports appetite normal, Reports voiding normally, Reports pain well controlled, Reports ambulating normally : doing well Objective - Vital Signs Latest vital signs: Vital Signs Temp Pulse Resp BP Pulse Ox 09/01/20 00:00 98.5 F 70 18 121/79 98 08/31/20 20:00 99.3 F 85 18 127/73 100 08/31/20 16:00 98.4 F 98 20 115/58 97 08/31/20 08:00 99.1 F 87 20 147/82 98 Intake and Output 08/31/20 09/01/20 09/01/20 22:59 06:59 14:59 Intake Total 360 Balance 360 Intake: Oral 360 Other: # Voids 2 - Exam Lungs: bilateral: normal Chest: Normal S1, Normal S2 Extremities: Present: normal Abdomen: Present: normal appearance, soft. Absent: distention, tenderness Incision: Present: normal, dry, intact Uterus: Present: normal, firm - Labs Labs: Abnormal Lab Results - Last 24 Hours (Table) 08/31/20 Range/Units 08:41 WBC 14.7 H (3.8-10.6) k/uL RBC 3.23 L (3.80-5.40) m/uL Hgb 10.4 L (11.4-16.0) gm/dL Hct 29.5 L (34.0-46.0) % Neutrophils # 11.9 H (1.3-7.7) k/uL Assessment and Plan Assessment: Postoperative day #2. Patient is resting without new complaints. Vital signs are stable her blood pressures are very good. Uterus is firm nontender she's having normal lochia. My impression is that this is a normal postoperative course. Plan is to continue routine postoperative care discharge home tomorrow. (1) delivery delivered Current Visit: Yes Status: Acute Code(s): O82 - ENCOUNTER FOR DELIVERY WITHOUT INDICATION SNOMED Code(s): 667375368
[2020-09-01] MEDS: METOPROLOL TARTRATE 50 MG TAB PO SCH (09:10)
[2020-09-01] MEDS: FERROUS SULFATE 325 MG TAB PO SCH (09:10)
[2020-09-01] MEDS: SENNOSIDES-DOCUSATE SODIUM 1 EACH TAB PO SCH ×2 (12:37→21:39)
[2020-09-01] MEDS: MONTELUKAST 10 MG TAB PO SCH (21:30)
[2020-09-01] MEDS: METOPROLOL TARTRATE 25 MG TAB PO SCH (21:30)
[2020-09-02] MEDS: IBUPROFEN 600 MG TAB PO PRN ×2 (00:24→07:09)
--- NOTE | 2020-09-02 07:13 | P.PNOBGPC ---
Subjective - Subjective Patient reports: Reports appetite normal, Reports voiding normally, Reports pain well controlled, Reports ambulating normally : doing well Objective - Vital Signs Latest vital signs: Vital Signs Temp Pulse Resp BP Pulse Ox 09/02/20 00:00 98.6 F 75 18 124/77 100 09/01/20 16:00 99.3 F 101 H 18 124/68 09/01/20 08:00 98.3 F 83 18 135/73 - Exam Lungs: bilateral: normal Chest: Normal S1, Normal S2 Extremities: Present: normal Abdomen: Present: normal appearance, soft. Absent: distention, tenderness Incision: Present: normal, dry, intact Uterus: Present: normal, firm Assessment and Plan Assessment: Postoperative day #3. This patient is resting without new complaints. Vital signs are stable and she is afebrile. Incision is intact and dry and uterus is firm nontender. She is having normal lochia. Blood pressures are very good. My impression this is a normal post /post operative course. Patient wishes to go home today is felt be stable for discharge home follow-up with Dr. Ann in 1 week. (1) delivery delivered Current Visit: Yes Status: Acute Code(s): O82 - ENCOUNTER FOR DELIVERY WITHOUT INDICATION SNOMED Code(s): 374814249
--- NOTE | 2020-09-02 07:15 | P.DS ---
Providers Date of admission: 08/30/20 06:24 Expected date of discharge: 09/02/20 Attending physician: Albaro Ann Primary care physician: Stated None - Discharge Diagnosis(es) (1) delivery delivered Current Visit: Yes Status: Acute Hospital Course: Please see dictated H&P and operative note per Dr. Ann on this patient's admission and delivery. In brief summary this is a 25-year-old 1 para 0 female at 38 weeks gestation admitted for delivery secondary to chronic hypertension in multiple other issues. Patient is admitted undergoes induction of labor and subsequent was on to have a primary section. Postoperatively the patient does well and on postoperative #3 is felt to be stable for discharge home follow up in [address] Ann. Procedures: Induction of labor and primary low transverse section. Patient Condition at Discharge: Good Plan - Discharge Summary New Discharge Prescriptions: New Ibuprofen [Motrin] 600 mg PO Q6H PRN #30 tab PRN Reason: Pain oxyCODONE HCL [OxyIR] 5 mg PO Q4HR PRN #18 tab PRN Reason: Pain No Action Metoprolol Tartrate [Lopressor] 50 mg PO QAM Albuterol Sulfate [Albuterol Sulfate Hfa] 2 puff PO Q4-6H PRN PRN Reason: sob Metoprolol Tartrate [Lopressor] 25 mg PO HS Montelukast Sodium [Singulair] 10 mg PO HS Doxylamine Succinate [Unisom] 1 tab PO DAILY Ferrous Sulfate [Feosol] 325 mg PO DAILY Pnv No.95/Ferrous Fum/Folic AC [ Multivitamin Tablet] 1 tab PO DAILY Discharge Medication List Metoprolol Tartrate [Lopressor] 50 mg PO QAM 12/09/18 [History] Albuterol Sulfate [Albuterol Sulfate Hfa] 2 puff PO Q4-6H PRN 12/20/18 [History] Metoprolol Tartrate [Lopressor] 25 mg PO HS 09/08/19 [History] Doxylamine Succinate [Unisom] 1 tab PO DAILY 08/20/20 [History] Ferrous Sulfate [Feosol] 325 mg PO DAILY 08/20/20 [History] Montelukast Sodium [Singulair] 10 mg PO HS 08/20/20 [History] Pnv No.95/Ferrous Fum/Folic AC [ Multivitamin Tablet] 1 tab PO DAILY 08/20/20 [History] Ibuprofen [Motrin] 600 mg PO Q6H PRN #30 tab 09/01/20 [Rx] oxyCODONE HCL [OxyIR] 5 mg PO Q4HR PRN #18 tab 09/01/20 [Rx] Follow up Appointment(s)/Referral(s): Albaro Ann DO [Doctor of Osteopathic Medicine] - 1 Week (Please see Dr. Ann in 1 week for an incision check (call the office) and also you have a appointment on October 11 at 10:30 AM.) Patient Instructions/Handouts: (DC) Activity/Diet/Wound Care/Special Instructions: No heavy lifting or strenuous activity for 6 weeks. No intercourse or anything per vagina for 6 weeks. Please call if any fever, chills, excessive vaginal bleeding, and/or abdominal pain. Discharge Disposition: HOME SELF-CARE
[2020-09-02] MEDS: SENNOSIDES-DOCUSATE SODIUM 1 EACH TAB PO SCH (08:25)
[2020-09-02] MEDS: METOPROLOL TARTRATE 50 MG TAB PO SCH (08:25)
[2020-09-02] MEDS: FERROUS SULFATE 325 MG TAB PO SCH (08:25)
[2020-09-02 08:46] VITALS: BP 133/84; PULSE 94; RESP 16; TEMP 98.7
== END 2020-09-02 11:26 | disposition home or self-care (01) | DRG 787 ==
LOC: 4FBP 06:24
PROVIDERS: ADMIT Obstetrics & Gynecology; ATTEND Obstetrics & Gynecology
PROC: 3E0R3BZ Introduction of Anesthetic Agent into Spinal Canal, Percutaneous Approach (ICD-10-PCS; 2020-08-30)
PROC: 10907ZC Drainage of Amniotic Fluid, Therapeutic from Products of Conception, Via Natural or Artificial Opening (ICD-10-PCS; 2020-08-30)
PROC: 3E033VJ Introduction of Other Hormone into Peripheral Vein, Percutaneous Approach (ICD-10-PCS; 2020-08-30)
PROC: 10D00Z1 Extraction of Products of Conception, Low, Open Approach (ICD-10-PCS; principal; 2020-08-30 19:16)
DX: O33.9 Maternal care for disproportion, unspecified (principal); O10.92 Unspecified pre-existing hypertension complicating childbirth; O69.2XX0 Labor and delivery complicated by other cord entanglement, with compression, not applicable or unspecified; O99.62 Diseases of the digestive system complicating childbirth; Z3A.38 38 weeks gestation of pregnancy; Z37.0 Single live birth; K21.9 Gastro-esophageal reflux disease without esophagitis; K58.9 Irritable bowel syndrome, unspecified; G43.909 Migraine, unspecified, not intractable, without status migrainosus; J45.909 Unspecified asthma, uncomplicated; O99.52 Diseases of the respiratory system complicating childbirth; O62.1 Secondary uterine inertia; Z79.899 Other long term (current) drug therapy; Z98.890 Other specified postprocedural states; Z87.442 Personal history of urinary calculi; Z88.1 Allergy status to other antibiotic agents; Z91.012 Allergy to eggs; Z88.2 Allergy status to sulfonamides; Z88.8 Allergy status to other drugs, medicaments and biological substances; Z91.018 Allergy to other foods; Z80.9 Family history of malignant neoplasm, unspecified
CPT/HCPCS: 85025; 86850; 86900; 86901; 88307

== ENCOUNTER 2021-05-19 10:35 | Emergency (ER) | payer OTHER ==
--- NOTE | 2021-05-19 10:50 | ED ---
URI HPI - General Chief Complaint: Upper Respiratory Infection Stated Complaint: Fever/Headache/Bodyaches Time Seen by Provider: 05/19/21 10:45 Source: patient, RN notes reviewed Mode of arrival: ambulatory Limitations: no limitations - History of Present Illness Initial Comments: 26-year-old female presents emergency Department chief complaint of possible COVID-19. Patient states her to the mother in son tested positive. She started symptoms primarily last 2 days. Complains of fever or chills body aches. Patient's current concern as she has chronic asthma. Patient denies any recent motions complaint of fevers chills body aches congestion no nausea vomiting diarrhea constipation. - Related Data Home Medications Medication Instructions Recorded Confirmed Metoprolol Tartrate [Lopressor] 25 mg PO BID 12/09/18 05/19/21 Vienva 0.1-20 Mg-Mcg 1 tab PO DAILY 05/19/21 05/19/21 Allergies Allergy/AdvReac Type Severity Reaction Status Date / Time clindamycin Allergy Rash/Hives Verified 05/19/21 12:54 egg Allergy Swelling Verified 05/19/21 12:54 blueberry AdvReac Itching Verified 05/19/21 12:54 cefaclor [From Ceclor] AdvReac Rash/Hives Verified 05/19/21 12:54 Influenza Virus Vaccines AdvReac Unknown Verified 05/19/21 12:54 nitrofurantoin AdvReac Unknown Verified 05/19/21 12:54 [From Macrobid] onion AdvReac Rash/Hives Verified 05/19/21 12:54 Sulfa (Sulfonamide AdvReac Swelling Verified 05/19/21 12:54 Antibiotics) Review of Systems ROS Statement: Those systems with pertinent positive or pertinent negative responses have been documented in the HPI. ROS Other: All systems not noted in ROS Statement are negative. Past Medical History Past Medical History: Asthma, Chest Pain / Angina, GERD/Reflux, Hypertension Additional Past Medical History / Comment(s): IBS, raynauds, migraines, heart murmer as child, Sinus Tachycardia, kidney stones. History of Any Multi-Drug Resistant Organisms: None Reported Past Surgical History: Section, Tonsillectomy Additional Past Surgical History / Comment(s): colonoscopy, cystoscopy for kidney stones, oral surgery, lithotripsy, esbl Past Anesthesia/Blood Transfusion Reactions: Previous Problems w/ Anesthesia, Motion Sickness Additional Past Anesthesia/Blood Transfusion Reaction / Comment(s): Wakes up confused-pulling at IV Past Psychological History: No Psychological Hx Reported Smoking Status: Never smoker Past Alcohol Use History: Occasional Past Drug Use History: None Reported - Past Family History Mother Family Medical History: Cancer Additional Family Medical History / Comment(s): . Sister(s) Additional Family Medical History / Comment(s): Patient has 2 sisters and 1 brother with no major medical problems. Patient does not have any children. General Exam Limitations: no limitations General appearance: alert, in no apparent distress Head exam: Present: atraumatic, normocephalic, normal inspection Eye exam: Present: normal appearance, PERRL, EOMI. Absent: scleral icterus, conjunctival injection, periorbital swelling ENT exam: Present: normal exam, normal oropharynx, mucous membranes moist Neck exam: Present: normal inspection, full ROM. Absent: tenderness, meningismus, lymphadenopathy Respiratory exam: Present: normal lung sounds bilaterally. Absent: respiratory distress, wheezes, rales, rhonchi, stridor Cardiovascular Exam: Present: normal rhythm, tachycardia, normal heart sounds. Absent: systolic murmur, diastolic murmur, rubs, gallop, clicks GI/Abdominal exam: Present: soft, normal bowel sounds. Absent: distended, tenderness, guarding, rebound, rigid Course Vital Signs 05/19/21 10:35 Temperature 98.0 F Pulse Rate 122 H Respiratory 20 Rate Blood Pressure 152/89 O2 Sat by Pulse 100 Oximetry Medical Decision Making - Medical Decision Making 26-year-old presented for COVID-19 symptoms. She did test positive, did receive monoclonal antibodies will be discharged in stable condition. - Lab Data Lab Results 05/19/21 Range/Units 10:42 Coronavirus (PCR) Detected A (Not Detectd) Disposition Clinical Impression: COVID-19 Disposition: HOME SELF-CARE Condition: Stable Instructions (If sedation given, give patient instructions): Coronavirus Disease 2019 (COVID-19) Additional Instructions: Please return to the Emergency Department if symptoms worsen or any other concerns. Is patient prescribed a controlled substance at d/c from ED?: No Referrals: None,Stated [Primary Care Provider] - 1-2 days Time of Disposition: 13:35
[2021-05-19] MEDS ORDERED: ACETAMINOPHEN TAB 325 MG TAB PO STA (12:37)
[2021-05-19] MEDS ORDERED: SODIUM CHLORIDE 0.9% 50 ML IVPB ONE (12:45)
[2021-05-19] MEDS ORDERED: BAMLANIVIMAB (EUA) 700 MG, ETESEVIMAB (EUA) 1,400 MG in SODIUM CHLORIDE 0.9% 50 ML IVPB ONE (13:00)
[2021-05-19 15:22] VITALS: BP 118/79; PULSE 96; RESP 18; TEMP 97.9
== END 2021-05-19 15:38 | disposition home or self-care (01) ==
LOC: EC 10:35
DX: U07.1 COVID-19 (principal); J45.909 Unspecified asthma, uncomplicated; K21.9 Gastro-esophageal reflux disease without esophagitis; I10 Essential (primary) hypertension; Z88.1 Allergy status to other antibiotic agents; Z88.2 Allergy status to sulfonamides; Z87.442 Personal history of urinary calculi; Z90.89 Acquired absence of other organs
CPT/HCPCS: 99283; 96365; 87635; J3490

== ENCOUNTER → 2021-10-14 | Outpatient (CLI) | payer OTHER | END | disposition home or self-care (01) | LOC: LABWHC1 09:44 | PROVIDERS: ATTEND Nurse Practitioner | DX: R00.2 Palpitations (principal) | CPT/HCPCS: 36415; 84443 ==

== ENCOUNTER 2021-11-01 11:26 | Emergency (ER) | payer OTHER ==
[2021-11-01 11:30] VITALS: TEMP 98.5
[2021-11-01 14:44] LABS: Basophils % (A) 0 %; Eosinophils # (A) 0.1 k/uL (0-0.7); Eosinophils % (A) 1 %; HCT 43.4 % (34.0-46.0); Lymphocytes # (A) 2.3 k/uL (1.0-4.8); Lymphocytes % (A) 32 %; MCH 29.9 pg (25.0-35.0); MCHC 34.5 g/dL (31.0-37.0); MCV 86.8 fL (80.0-100.0); Mean Platelet Volume 6.6; Monocytes # (A) 0.2 k/uL (0-1.0); Monocytes % (A) 3 %; Neutrophils # (A) 4.4 k/uL (1.3-7.7); Neutrophils % (A) 61 %; Platelet Count 265 k/uL (150-450); RDW 12.8 % (11.5-15.5); WBC 7.1 k/uL (3.8-10.6)
[2021-11-01 14:45] LABS: Appearance,Urine Clear (Clear); Bilirubin,Urine Negative (Negative); Blood,Urine Large (Negative); Color,Urine Yellow; Glucose,Urine (UA) Negative (Negative); Ketones,Urine Negative (Negative); Leukocyte Esterase,Urine Negative (Negative); Mucus,Urine Rare /hpf; Nitrite,Urine Negative (Negative); PH, Urine 6.5 (5.0-8.0); Protein,Urine Negative (Negative); RBC,Urine >182 /hpf (0-5); Specific Gravity,Urine 1.013 (1.001-1.035); Squamous Epithelial Cell,Urine <1 /hpf (0-4); Urobilinogen,Urine <2.0 mg/dL (<2.0); WBC,Urine 3 /hpf (0-5)
[2021-11-01 14:47] LABS: ALT 11 U/L (4-34); AST 18 U/L (14-36); African American GFR (CKD) >90 (>60 ml/min/1.73 sqM); Albumin 4.6 g/dL (3.5-5.0); Alkaline Phosphatase 70 U/L (38-126); Anion Gap 10 mmol/L; Blood Urea Nitrogen 9 mg/dL (7-17); Calcium 9.1 mg/dL (8.4-10.2); Carbon Dioxide 25 mmol/L (22-30); Chloride 103 mmol/L (98-107); Glucose 99 mg/dL (74-99); Non-African American GFR(CKD) >90 (>60 ml/min/1.73 sqM); Potassium 4.2 mmol/L (3.5-5.1); Sodium 138 mmol/L (137-145); Total Bilirubin 0.9 mg/dL (0.2-1.3); Total Protein 7.8 g/dL (6.3-8.2)
--- NOTE | 2021-11-01 15:16 | US ---
EXAMINATION TYPE: US transvaginal DATE OF EXAM: 11/01/2021 COMPARISON: NONE CLINICAL HISTORY: vaginal bleed, pain. TECHNIQUE: Transvaginal (TV). Date of LMP: 10/22/2021 EXAM MEASUREMENTS: Uterus: 7.1 X 3.2 X 4.4 cm Endometrial Stripe: 0.7 cm Right Ovary: 3.1 X 2.4 X 2.1 cm Left Ovary: 2.5 X 1.9 X 2.7 cm 1. Uterus: Anteverted anterior aspect of the myometrium shows mild irregularity consistent with delta becerra's history of previous surgery 2. Endometrium: wnl 3. Right Ovary: wnl 4. Left Ovary: wnl Spectral, color and waveform doppler imaging shows arterial and venous flow within the ovaries; the re is no evidence for ovarian torsion. 5. Bilateral Adnexa: wnl 6. Posterior cul-de-sac: no free fluid Initial sagittal images show questionable hypoechoic focus along the anterior myometrium which may be artifactual as this is not reproduced on axial scans IMPRESSION: Postprocedural changes
[2021-11-01 15:51] VITALS: BP 144/96; PULSE 102; RESP 16
--- NOTE | 2021-11-01 16:09 | ED ---
General Adult HPI - General Chief complaint: Vaginal Bleeding Stated complaint: Cramps,Lower back pain Time Seen by Provider: 11/01/21 12:59 Source: patient Mode of arrival: ambulatory Limitations: no limitations - History of Present Illness Initial comments: 26-year-old female with past medical history of asthma, reflux since the emergency room for IV vaginal bleeding. Reports that it has been going on since Thursday. Thursday she ran out of her control and has been unable to get into an [facility] or primary care office for refill. She had a normal menstrual cycle 2 weeks ago. She feels as if the bleeding is heavy to where she is lightheaded and nauseated. She reports that she otherwise has very heavy menstrual cycles. Admits that there could be a concern for . Denies any vaginal discharge. Has suprapubic cramping as well as bilateral flank pain. No fevers. No dysuria, hematuria or voiding. No changes in her bowel habits. No other alleviating, precipitating modifying factors - Related Data Home Medications Medication Instructions Recorded Confirmed Metoprolol Tartrate [Lopressor] 25 mg PO BID 12/09/18 11/01/21 Vienva 0.1-20 Mg-Mcg 1 tab PO DAILY 05/19/21 11/01/21 Allergies Allergy/AdvReac Type Severity Reaction Status Date / Time clindamycin Allergy Rash/Hives Verified 11/01/21 16:04 egg Allergy Swelling Verified 11/01/21 16:04 blueberry AdvReac Itching Verified 11/01/21 16:04 cefaclor [From Ceclor] AdvReac Rash/Hives Verified 11/01/21 16:04 Influenza Virus Vaccines AdvReac Unknown Verified 11/01/21 16:04 nitrofurantoin AdvReac Unknown Verified 11/01/21 16:04 [From Macrobid] onion AdvReac Rash/Hives Verified 11/01/21 16:04 Sulfa (Sulfonamide AdvReac Swelling Verified 11/01/21 16:04 Antibiotics) Review of Systems ROS Statement: Those systems with pertinent positive or pertinent negative responses have been documented in the HPI. ROS Other: All systems not noted in ROS Statement are negative. Past Medical History Past Medical History: Asthma, Chest Pain / Angina, GERD/Reflux, Hypertension Additional Past Medical History / Comment(s): IBS, raynauds, migraines, heart murmer as child, Sinus Tachycardia, kidney stones. History of Any Multi-Drug Resistant Organisms: None Reported Past Surgical History: Section, Tonsillectomy Additional Past Surgical History / Comment(s): colonoscopy, cystoscopy for kidney stones, oral surgery, lithotripsy, esbl Past Anesthesia/Blood Transfusion Reactions: Previous Problems w/ Anesthesia, Motion Sickness Additional Past Anesthesia/Blood Transfusion Reaction / Comment(s): Wakes up confused-pulling at IV Past Psychological History: No Psychological Hx Reported Smoking Status: Never smoker Past Alcohol Use History: Occasional Past Drug Use History: None Reported - Past Family History Mother Family Medical History: Cancer Additional Family Medical History / Comment(s): . Sister(s) Additional Family Medical History / Comment(s): Patient has 2 sisters and 1 brother with no major medical problems. Patient does not have any children. General Exam Limitations: no limitations Course Vital Signs 11/01/21 11/01/21 11:27 15:49 Temperature 98.5 F Pulse Rate 63 102 H Respiratory 18 16 Rate Blood Pressure 147/92 144/96 O2 Sat by Pulse 99 96 Oximetry Medical Decision Making - Medical Decision Making Upon arrival patient was placed into room 26. Thorough history and physical exam was performed. Pelvic exam is performed which demonstrates no signs of vaginal trauma. No lacerations. Laboratory studies are conducted. Hemoglobin 15. Urinalysis does demonstrate large blood. Ultrasound performed that showed acute findings. Patient's at this time is likely due to being off of her control at this time. I will fill the patient's control and refer her to [facility] at this time. Patient is asked to return to the emergency room for any new or worsening symptoms. Patient agreed to and was discharged in stable condition - Lab Data Result diagrams: 11/01/21 14:12 11/01/21 14:12 Lab Results 11/01/21 11/01/21 11/01/21 Range/Units 14:12 14:12 14:12 WBC 7.1 (3.8-10.6) k/uL RBC 5.00 (3.80-5.40) m/uL Hgb 15.0 (11.4-16.0) gm/dL Hct 43.4 (34.0-46.0) % MCV 86.8 (80.0-100.0) fL MCH 29.9 (25.0-35.0) pg MCHC 34.5 (31.0-37.0) g/dL RDW 12.8 (11.5-15.5) % Plt Count 265 (150-450) k/uL MPV 6.6 Neutrophils % 61 % Lymphocytes % 32 % Monocytes % 3 % Eosinophils % 1 % Basophils % 0 % Neutrophils # 4.4 (1.3-7.7) k/uL Lymphocytes # 2.3 (1.0-4.8) k/uL Monocytes # 0.2 (0-1.0) k/uL Eosinophils # 0.1 (0-0.7) k/uL Basophils # 0.0 (0-0.2) k/uL Sodium (137-145) mmol/L Potassium (3.5-5.1) mmol/L Chloride (98-107) mmol/L Carbon Dioxide (22-30) mmol/L Anion Gap mmol/L BUN (7-17) mg/dL Creatinine (0.52-1.04) mg/dL Est GFR (CKD-EPI)AfAm (>60 ml/min/1.73 sqM) Est GFR (CKD-EPI)NonAf (>60 ml/min/1.73 sqM) Glucose (74-99) mg/dL Calcium (8.4-10.2) mg/dL Total Bilirubin (0.2-1.3) mg/dL AST (14-36) U/L ALT (4-34) U/L Alkaline Phosphatase (38-126) U/L Total Protein (6.3-8.2) g/dL Albumin (3.5-5.0) g/dL Urine Color Yellow Urine Appearance Clear (Clear) Urine pH 6.5 (5.0-8.0) Ur Specific Abbott 1.013 (1.001-1.035) Urine Protein Negative (Negative) Urine Glucose (UA) Negative (Negative) Urine Ketones Negative (Negative) Urine Blood Large H (Negative) Urine Nitrite Negative (Negative) Urine Bilirubin Negative (Negative) Urine Urobilinogen <2.0 (<2.0) mg/dL Ur Leukocyte Esterase Negative (Negative) Urine RBC >182 H (0-5) /hpf Urine WBC 3 (0-5) /hpf Ur Squamous Epith Cells <1 (0-4) /hpf Urine Mucus Rare H (None) /hpf Urine HCG, Qual Not Detected (Not Detectd) 11/01/21 Range/Units 14:12 WBC (3.8-10.6) k/uL RBC (3.80-5.40) m/uL Hgb (11.4-16.0) gm/dL Hct (34.0-46.0) % MCV (80.0-100.0) fL MCH (25.0-35.0) pg MCHC (31.0-37.0) g/dL RDW (11.5-15.5) % Plt Count (150-450) k/uL MPV Neutrophils % % Lymphocytes % % Monocytes % % Eosinophils % % Basophils % % Neutrophils # (1.3-7.7) k/uL Lymphocytes # (1.0-4.8) k/uL Monocytes # (0-1.0) k/uL Eosinophils # (0-0.7) k/uL Basophils # (0-0.2) k/uL Sodium 138 (137-145) mmol/L Potassium 4.2 (3.5-5.1) mmol/L Chloride 103 (98-107) mmol/L Carbon Dioxide 25 (22-30) mmol/L Anion Gap 10 mmol/L BUN 9 (7-17) mg/dL Creatinine 0.67 (0.52-1.04) mg/dL Est GFR (CKD-EPI)AfAm >90 (>60 ml/min/1.73 sqM) Est GFR (CKD-EPI)NonAf >90 (>60 ml/min/1.73 sqM) Glucose 99 (74-99) mg/dL Calcium 9.1 (8.4-10.2) mg/dL Total Bilirubin 0.9 (0.2-1.3) mg/dL AST 18 (14-36) U/L ALT 11 (4-34) U/L Alkaline Phosphatase 70 (38-126) U/L Total Protein 7.8 (6.3-8.2) g/dL Albumin 4.6 (3.5-5.0) g/dL Urine Color Urine Appearance (Clear) Urine pH (5.0-8.0) Ur Specific Abbott (1.001-1.035) Urine Protein (Negative) Urine Glucose (UA) (Negative) Urine Ketones (Negative) Urine Blood (Negative) Urine Nitrite (Negative) Urine Bilirubin (Negative) Urine Urobilinogen (<2.0) mg/dL Ur Leukocyte Esterase (Negative) Urine RBC (0-5) /hpf Urine WBC (0-5) /hpf Ur Squamous Epith Cells (0-4) /hpf Urine Mucus (None) /hpf Urine HCG, Qual (Not Detectd) Disposition Clinical Impression: Menorrhagia Disposition: HOME SELF-CARE Condition: Stable Instructions (If sedation given, give patient instructions): Menorrhagia (ED) Additional Instructions: Please follow-up with the [facility] for further evaluation of your heavy vaginal bleeding. Return to the emergency room for any new or worsening symptoms Is patient prescribed a controlled substance at d/c from ED?: No Referrals: None,Stated [Primary Care Provider] - 1-2 days Bonita Strauss DO [Doctor of Osteopathic Medicine] - 1-2 days Tato Yates MD [STAFF PHYSICIAN] - 1-2 days Time of Disposition: 16:08
== END 2021-11-01 16:14 | disposition home or self-care (01) ==
LOC: EC 11:26
DX: N92.0 Excessive and frequent menstruation with regular cycle (principal); I10 Essential (primary) hypertension; J45.909 Unspecified asthma, uncomplicated; Z79.899 Other long term (current) drug therapy
CPT/HCPCS: 36415; 76830; 80053; 81001; 81025; 85025; 93975; 99284